=== PATIENT | male | born 1995 | race Caucasian/White ===

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

== ENCOUNTER 2020-03-29 15:00 | Inpatient (IN) | payer SELFPAY ==
[2020-03-29] MEDS ORDERED: ACETAMINOPHEN 325 MG TABLET PO ONE (15:23)
[2020-03-29] MEDS ORDERED: ONDANSETRON HCL INJ/PF 4 MG/2 ML SDV IV ONE ×2 (15:40→19:40)
[2020-03-29] MEDS ORDERED: NORMAL SALINE 1000 ML 1,000 ML IV ONE ×2 (15:40→16:47)
--- NOTE | 2020-03-29 15:43 | ER Document Report ---
ED GI/ - General TRAVEL OUTSIDE OF THE [place] IN LAST 30 DAYS: No <XIAO LANE - Last Filed: 03/29/20 19:41> <GERARDO KEE - Last Filed: 03/29/20 21:22> - General Chief Complaint: Fever Stated Complaint: COUGH,CONGESTION,DIARRHE Time Seen by Provider: 03/29/20 15:23 Notes: CHIEF COMPLAINT: Abdominal pain vomiting diarrhea fever cough congestion HPI: 25-year-old male presenting with multiple complaints over the last 2 weeks. Has had a nonproductive cough. Nasal congestion. Has had multiple episodes of vomiting and diarrhea with generalized lower abdominal discomfort over the last 2 weeks. Patient reports having seen some blood in his stool a week ago. Patient complains of generalized myalgia and body ache. ROS: See HPI - all other systems were reviewed and are otherwise negative Constitutional: no fever Eyes: no drainage, no blurred vision ENT: + runny nose, no sore throat Cardiovascular: no chest pain Resp: no SOB, + cough GI: + vomiting, + diarrhea, + abdominal pain : no dysuria Integumentary: no rash Allergy: no hives Musculoskeletal: Positive myalgia Neurological: no numbness/tingling, no weakness MEDICATIONS: I agree with the patient medications as charted by the RN. ALLERGIES: I agree with the allergies as charted by the RN. PAST MEDICAL HISTORY/PAST SURGICAL HISTORY: Reviewed and agree as charted by RN. SOCIAL HISTORY: Reviewed and agree as charted by RN. FAMILY HISTORY: No significant familial comorbid conditions directly related to patient complaint EXAM: Reviewed vital signs as charted by RN. CONSTITUTIONAL: Alert and oriented and responds appropriately to questions. Well-appearing; well-nourished HEAD: Normocephalic; atraumatic EYES: PERRL; Conjunctivae clear, sclerae non-icteric ENT: normal nose; positive clear rhinorrhea; moist mucous membranes; pharynx without lesions noted, no uvula edema or deviation, no tonsillar hypertrophy, phonation normal NECK: Supple without meningismus; non-tender; no cervical lymphadenopathy, no masses CARD: Mild tachycardia; no murmurs, no clicks, no rubs, no gallops; symmetric distal pulses RESP: Normal chest excursion without splinting or tachypnea; breath sounds clear and equal bilaterally; no wheezes, no rhonchi, no rales, pulse oximetry 97% on room air not hypoxic ABD/GI: Normal bowel sounds; non-distended; soft, mild tenderness in the right lower quadrant on palpation, no rebound, no guarding; no palpable organomegaly or masses. BACK: The back appears normal and is non-tender to palpation, there is no CVA tenderness EXT: Normal ROM in all joints; non-tender to palpation; no cyanosis, no effusions, no edema SKIN: Normal color for age and race; warm; dry; good turgor; no acute lesions noted NEURO: Moves all extremities equally; Motor and sensory function intact PSYCH: The patient's mood and manner are appropriate. Grooming and personal hygiene are appropriate. MDM: 25-year-old male with multiple complaints. Will obtain Covid testing. Will obtain chest x-ray for infiltrate. Will obtain baseline screening labs, abdominal CT given his complaint of lower abdominal pain over the last 2 weeks with possible blood in the stool last week. He has mild tenderness in the right lower quadrant differential would include appendicitis, colitis, Covid, flu (XIAO LANE) - Related Data Allergies/Adverse Reactions: No Known Allergies Allergy (Verified 03/29/20 15:33) Past Medical History - Social History Smoking Status: Current Every Day Smoker Family History: Reviewed & Not Pertinent Patient has homicidal ideation: No Renal/ Medical History: Denies: Hx Peritoneal Dialysis Psychiatric Medical History: Reports: Hx Borderline Personality Disorder - Immunizations Immunizations up to date: Yes Hx Diphtheria, Pertussis, Tetanus Vaccination: Yes - 2008 <[address] - Last Filed: 03/29/20 19:41> Physical Exam - Vital signs Vitals: Temp Pulse Resp BP Pulse Ox 101.5 F H 112 H 19 142/72 H 99 03/29/20 15:12 03/29/20 15:12 03/29/20 15:12 03/29/20 15:12 03/29/20 15:12 Course - Laboratory Result Diagrams: 03/29/20 17:17 03/29/20 15:57 <[address] - Last Filed: 03/29/20 19:41> - Laboratory Result Diagrams: 03/29/20 17:17 03/29/20 15:57 - Diagnostic Test Radiology reviewed: Reports reviewed - Consults Hospitalist consult Time consulted: 21:18 Consulted provider: will come to ER <GERARDO EKE - Last Filed: 03/29/20 21:22> - Re-evaluation Re-evalutation: 03/29/20 16:52 Patient was noted to be markedly hyponatremic. Patient's T bili also significantly elevated. Have added drug screen and alcohol level. Have ordered additional IV fluids. Patient awaiting CT imaging. 03/29/20 19:[address] Mathew attending. Report will be given to oncoming shift following disposition. Patient CT imaging shows diffuse bowel wall thickening with reactive lymphadenopathy. Question of ulcerative colitis or Crohn's disease. Patient indicates that he has no family history of and no personal history of those. Patient drinks approximately 9-12 beers daily. Patient will have gallbladder ultrasound given the thickened gallbladder wall to evaluate for acute cholecystitis. 03/29/20 19:41 Patient states he has not had any bleeding from his rectum in 2 days, he declines a rectal exam at this time. (XIAO LANE) 03/29/20 20:05 Report received from off going provider, Xiao. I have evaluated the patient at bedside. He is currently resting comfortably and in no acute distress. He has had a dose of Zosyn. He does have a CT result that shows colitis. He is a chronic alcoholic and likely has alcoholic gastritis as well. I will consult the hospitalist for admission. (GERARDO EKE) - Vital Signs Vital signs: Temp Pulse Resp BP Pulse Ox 99.7 F 100 20 128/71 H 100 03/29/20 18:35 03/29/20 18:35 03/29/20 18:35 03/29/20 18:35 03/29/20 18:35 - Laboratory Laboratory results interpreted by me: 03/29/20 03/29/20 15:57 17:17 WBC 15.7 H RBC 2.58 L Hgb 9.7 L Hct 27.4 L MCV 106 H MCH 37.6 H Plt Count 95 L Seg Neuts % (Manual) 84 H Band Neutrophils % 1 L Lymphocytes % (Manual) 9 L Abs Neuts (Manual) 13.3 H Sodium 126.6 L Potassium 3.2 L Chloride 90 L BUN 5 L Total Bilirubin 7.7 H Direct Bilirubin 2.2 H AST 189 H ALT 74 H Alkaline Phosphatase 201 H Albumin 3.2 L Lipase 522.3 H - Consults Hospitalist consult Reason for consultation: 03/29/20 21:18 This case was discussed with Dr. Simmons who agrees to evaluate patient in the emergency room for admission. (GERARDO KEE) Discharge <XIAO LANE - Last Filed: 03/29/20 19:41> - Discharge Admitting Provider: [facility] Unit Admitted: Medical Floor <GERARDO KEE - Last Filed: 03/29/20 21:22> - Discharge Clinical Impression: Acute colitis Alcoholic gastritis Qualifiers: Chronicity: acute Gastritis bleeding: presence of bleeding unspecified Qualified Code(s): K29.20 - Alcoholic gastritis without bleeding Condition: Stable Disposition: ADMITTED INPATIENT
[2020-03-29 16:33] LABS: ALBUMIN 3.2 g/dL (3.5-5.0); ALKALINE PHOSPHATASE 201 U/L (38-126); ANION GAP 13 (5-19); ASPARTATE AMINO TRANSFERASE 189 U/L (17-59); BILIRUBIN,DIRECT 2.2 mg/dL (0.0-0.4); BILIRUBIN,TOTAL 7.7 mg/dL (0.2-1.3); BLOOD UREA NITROGEN 5 mg/dL (7-20); CALCIUM 9.7 mg/dL (8.4-10.2); CARBON DIOXIDE 24 mmol/L (22-30); CHLORIDE 90 mmol/L (98-107); GLUCOSE 101 mg/dL (75-110); POTASSIUM 3.2 mmol/L (3.6-5.0); TOTAL PROTEIN 7.7 g/dL (6.3-8.2)
[2020-03-29 16:46] LABS: A TYPE INFLUENZA AG NEGATIVE (NEGATIVE); B INFLUENZA AG NEGATIVE (NEGATIVE)
[2020-03-29] MEDS ORDERED: POTASSIUM CHLORIDE 10 MEQ TABLET.ER PO ONE (16:47)
[2020-03-29 17:35] LABS: HEMATOCRIT 27.4 % (37.9-51.0); HEMOGLOBIN 9.7 g/dL (13.5-17.0); MEAN CORPUSCULAR HEMOGLOBIN 37.6 pg (27.0-33.4); MEAN CORPUSCULAR HGB CONC 35.4 g/dL (32.0-36.0); MEAN CORPUSCULAR VOLUME 106 fl (80-97); RED BLOOD COUNT 2.58 10^6/uL (4.35-5.55); RED CELL DISTRIBUTION WIDTH 13.9 % (11.5-14.0); WHITE BLOOD COUNT 15.7 10^3/uL (4.0-10.5)
[2020-03-29 17:40] LABS: PLATELET COUNT 95 10^3/uL (150-450)
[2020-03-29 17:51] LABS: ABSOLUTE LYMPHOCYTES# (MANUAL) 1.7 10^3/uL (0.5-4.7); ABSOLUTE MONOCYTES # (MANUAL) 0.5 10^3/uL (0.1-1.4); BAND NEUTROPHILS % (MANUAL) 1 % (3-5); BASOPHILS % (MANUAL) 0 % (0-2); EOSINOPHILS % (MANUAL) 1 % (0-6); LYMPHOCYTES % (MANUAL) 9 % (13-45); MONOCYTES % (MANUAL) 3 % (3-13); SEGMENTED NEUTROPHILS % (MAN) 84 % (42-78); SMUDGE CELLS PRESENT; TOTAL CELLS COUNTED 100
[2020-03-29 17:53] LABS: PLATELET COMMENT DECREASED
[2020-03-29 17:54] LABS: ANISOCYTOSIS SLIGHT; POLYCHROMASIA 1+
[2020-03-29 17:55] LABS: POIKILOCYTOSIS 2+
[2020-03-29 18:18] LABS: APPEARANCE,URINE CLEAR; BILIRUBIN,URINE NEGATIVE (NEGATIVE); COLOR,URINE AMBER; GLUCOSE, URINE NEGATIVE (NEGATIVE); KETONES,URINE NEGATIVE (NEGATIVE); LEUKOCYTE ESTERASE,URINE NEGATIVE (NEGATIVE); NITRITE,URINE NEGATIVE (NEGATIVE); PROTEIN,URINE NEGATIVE (NEGATIVE); URINE SPECIFIC GRAVITY 1.008; UROBILINOGEN,URINE NEGATIVE mg/dL (<2.0)
[2020-03-29 18:35] LABS: URINE AMPHETAMINES SCREEN NEGATIVE; URINE BARBITURATES SCREEN NEGATIVE; URINE BENZODIAZEPINES SCREEN NEGATIVE; URINE COCAINE SCREEN NEGATIVE; URINE MARIJUANA (THC) SCREEN NEGATIVE; URINE METHADONE SCREEN NEGATIVE; URINE PHENCYCLIDINE SCREEN NEGATIVE
--- NOTE | 2020-03-29 19:24 | RADIOLOGY REPORT (SQ) ---
EXAM DESCRIPTION: CT ABD/PELVIS WITH IV ORAL IMAGES COMPLETED DATE/TIME: 03/29/2020 7:01 pm REASON FOR STUDY: rlq abd pain COMPARISON: 06/26/2016 TECHNIQUE: CT scan of the abdomen and pelvis performed using helical scanning technique with dynamic intravenous contrast injection. No oral contrast. Images reviewed with lung, soft tissue, and bone windows. Reconstructed coronal and sagittal MPR images reviewed. Delayed images for evaluation of the urinary system also acquired. All images stored on PACS. All CT scanners at this facility use dose modulation, iterative reconstruction, and/or weight based d osing when appropriate to reduce radiation dose to as low as reasonably achievable (ALARA). [facility]: Dose Right [facility]: CareDose [facility]: Dose Right [facility]: Teradose 4D [facility]: Libretto CONTRAST TYPE AND DOSE: contrast/concentration: Isovue 350.00 mmol/ml; Total Contrast Delivered: 95. 9 ml; Total Saline Delivered: 70.0 ml RENAL FUNCTION: None required. The patient is less than 50 years old. RADIATION DOSE: CT Rad equipment meets quality standard of care and radiation dose reduction techniq ues were employed. CTDIvol: 5.4 - 7.1 mGy. DLP: 651 mGy-cm.. LIMITATIONS: Respiratory motion. Streak artifact from the patient's arms which could not be placed above the head. FINDINGS: LOWER CHEST: Focal rounded opacity in the periphery of the left lower lobe at the level of the diaphragm. Most likely focal airspace disease. LIVER: Decreased attenuation consistent with steatosis. Hepatomegaly. The liver measures over 20 cm in cranial caudal dimensions. This is new from prior study. There is a small amount of perihepatic fluid. SPLEEN: Splenomegaly. No focal masses. Spleen measures just over 15 cm in cranial caudal dimensions . PANCREAS: No masses. No significant calcifications. No adjacent inflammation or peripancreatic fluid collections. Pancreatic duct not dilated. GALLBLADDER: Pericholecystic edema. Acute cholecystitis cannot be excluded. ADRENAL GLANDS: No significant masses or asymmetry. RIGHT KIDNEY AND URETER: No solid masses. No significant calcifications. No hydronephrosis or hyd roureter. LEFT KIDNEY AND URETER: No solid masses. No significant calcifications. No hydronephrosis or hydr oureter. AORTA AND VESSELS: No aneurysm. No dissection. Renal arteries, SMA, celiac without stenosis. RETROPERITONEUM: No retroperitoneal adenopathy, hemorrhage or masses. BOWEL AND PERITONEAL CAVITY: Extensive thickening of the colonic wall no free air or focal abscess. No evidence of obstruction. Prominent peritoneal lymph nodes which could be rib reactive or neoplast ic. APPENDIX: Normal. PELVIS: Small amount of free fluid in the right lower quadrant and in the pelvis. ABDOMINAL WALL: No masses. No hernias. BONES: No significant or acute findings. OTHER: No other significant finding. IMPRESSION: 1. Diffuse thickening of the colonic wall with no definitive involvement of the terminal ileum. This may represent Crohn's or ulcerative colitis. There is diffuse mesenteric adenopathy mo st likely reactive. 2. Pericholecystic edema. There is perihepatic fluid. Correlation with ultrasound is recommended. 3. Hepatosplenomegaly. Hepatic steatosis. 4. Small amount of free fluid in the right lower quadrant and pelvis. TECHNICAL DOCUMENTATION: JOB ID: [id number] Quality ID # [id number]: Final reports with documentation of one or more dose reduction techniques (e.g., Au tomated exposure control, adjustment of the mA and/or kV according to patient size, use of iterative reconstruction technique) 2010 [employer]- All Rights Reserved Reading location - IP/workstation name: [email or web address]
[2020-03-29] MEDS ORDERED: PIPERACILLIN/TAZOBACTAM 3.375 GM VIAL IV ONE (19:37)
[2020-03-29] MEDS ORDERED: FENTANYL CITRATE INJ/PF 100 MCG/2 ML AMPUL IV ONE (19:40)
--- NOTE | 2020-03-29 20:34 | RADIOLOGY REPORT (SQ) ---
EXAM DESCRIPTION: US ABDOMEN LIMITED COMPLETED DATE/TME: 03/29/2020 20:18 CLINICAL HISTORY: 25 years, Male, GB wall thickening COMPARISON: CT abdomen/pelvis performed the same day TECHNIQUE: Axial 2-D grayscale images of the abdomen were acquired. Doppler was utilized. LIMITATIONS: None. FINDINGS: Visualized portions of the pancreas are normal in echogenicity. Visualized portions of the abdominal aorta and IVC appear normal. The liver is diffusely echogenic and somewhat coarsened in echotexture. No focal liver lesions are appreciated. Liver length is 19.6 cm. Bidirectional flow is suspected within the portal vein. However, color Doppler was poorly visualized. Portal vein diameter is 2 cm. Right kidney measures 10.5 cm in length. There is mild dilatation of the renal pelvis. Gallbladder wall thickness measures 4 mm. No gallstones. However, there is suspected echogenic material layering dependently within the gallbladder lumen. Common bile duct diameter measures 4 mm. Sonographic Banuelos sign was negative. Trace perihepatic ascites is evident. IMPRESSION: Echogenic liver which is coarsened in echotexture, suggestive of diffuse hepatocellular disease such as hepatic steatosis. Superimposed bidirectional flow within the portal vein with poorly assessed color Doppler. However, the portal vein appeared patent on the recent CT. As such, the bidirectional flow within the portal vein is potentially related to portal hypertension. Isolated gallbladder wall thickening, nonspecific. This could be related to underlying chronic liver disease. Suspect gallbladder sludge. Mild right hydronephrosis. Small amount of perihepatic ascites. copyright 2010 [employer] All Rights Reserved
[2020-03-29] MEDS ORDERED: SUCRALFATE 1 GM TABLET PO ONE (21:08)
[2020-03-29] MEDS ORDERED: FAMOTIDINE INJ/PF 20 MG/2 ML SDV IV ONE (21:08)
[2020-03-29] MEDS ORDERED: ACETAMINOPHEN 325 MG TABLET PO PRN (21:53)
[2020-03-29] MEDS ORDERED: ONDANSETRON HCL INJ/PF 4 MG/2 ML SDV IV PRN (21:53)
[2020-03-29] MEDS ORDERED: LORAZEPAM INJ 2 MG/1 ML VIAL IV PRN (22:11)
[2020-03-29 22:43] LABS: C DIFFICILE GDH NEGATIVE (NEGATIVE)
[2020-03-29] MEDS: PANTOPRAZOLE SODIUM 40 MG VIAL IV SCH (22:52)
[2020-03-29] MEDS: RINGERS SOLUTION,LACTATED 1,000 ML IV PRN (22:56)
--- NOTE | 2020-03-29 23:03 | PDOC H&P ---
History of Present Illness Admission Date/PCP: 03/29/20 21:35 Patient complains of: Nausea, vomiting, bloody diarrhea History of Present Illness: VASU FELICIANO is a 25 year old male with no significant past medical history who presents with 2 to 3 weeks duration of nausea, vomiting and diarrhea. Patient reports that he has decreased appetite and whenever he tries to have a meal he throws up mostly ingested matter. Diarrhea is mostly watery but he also states that occasionally becomes mixed with bright red blood throughout his bowel movement. He also states that he has been having cough productive of blood-streaked sputum. Associated with this he also endorses a burning epigastric pain especially after having a meal or drinking water. Patient also states that he has cramping lower abdominal pain, fever, chills, pruritus and pleuritic chest pain. In the past 2 days he has been feeling dizzy when he gets up. His sister had bad cough and fever recently but he states that she tested negative for Covid 19. He drinks 8 cans of beer daily and states that in the past he has had tremors and excessive anxiety and agitation when trying to quit alcohol. He denies taking any [id number] or herbal medications. He also denied any recent travel. Social History Information Source: Patient Lives with: Family Smoking Status: Current Every Day Smoker Frequency of Alcohol Use: Heavy Hx Recreational Drug Use: No Drugs: None - Advance Directive Resuscitation Status: Full Code Family History Family History: Reviewed & Not Pertinent Parental Family History Reviewed: Yes Children Family History Reviewed: Yes Sibling(s) Family History Reviewed.: Yes Medication/Allergy Home Medications: No Home Medications 04/16/16 Allergies/Adverse Reactions: No Known Allergies Allergy (Verified 03/29/20 15:33) Review of Systems Constitutional: PRESENT: anorexia, chills, fatigue, fever(s) Eyes: ABSENT: visual disturbances Ears: ABSENT: hearing changes Nose, Mouth, and Throat: ABSENT: headache(s), mouth pain, sore throat Cardiovascular: ABSENT: chest pain, dyspnea on exertion, edema, orthropnea, palpitations Respiratory: PRESENT: as per HPI Gastrointestinal: PRESENT: as per HPI Genitourinary: ABSENT: dysuria, hematuria Musculoskeletal: ABSENT: joint swelling Integumentary: ABSENT: rash, wounds Neurological: ABSENT: abnormal gait, abnormal speech, confusion, dizziness, focal weakness, syncope Psychiatric: ABSENT: anxiety, depression, homidical ideation, suicidal ideation Endocrine: ABSENT: cold intolerance, heat intolerance, polydipsia, polyuria Hematologic/Lymphatic: ABSENT: easy bleeding, easy bruising Physical Exam Vital Signs: Temp Pulse Resp BP Pulse Ox 99.6 F 98 20 134/57 H 97 03/29/20 21:57 03/29/20 21:57 03/29/20 21:57 03/29/20 21:57 03/29/20 21:57 Intake & Output 03/28/20 03/29/20 03/30/20 06:59 06:59 06:59 Intake Total 1999 Balance 1999 Weight 76.9 kg Additional comments: GENERAL APPEARANCE: Alert and oriented x3, in no acute distress HEENT: Normocephalic and atraumatic. Has scleral icterus. Dry oral mucosa NECK: Supple. No lymphadenopathy or tenderness. No JVD CHEST: Symmetric. Nontender to palpation. LUNGS: Clear with good air entry bilaterally. No wheezing or crackles HEART: Regular rate and rhythm with normal S1 and S2. No murmurs, gallops, or rubs. ABDOMEN: Mildly distended, soft, active bowel sounds, has mild epigastric and suprapubic tenderness but no guarding rigidity or rebound tenderness. No organomegaly detected. No CVA tenderness EXTREMITIES: No cyanosis, clubbing, or edema. MUSCULOSKELETAL: No deformity, atrophy or swelling noted PSYCHIATRIC: Recent and remote memory is intact. Appropriate mood and affect. SKIN: Warm, dry, and well perfused. No lesions or rashes are noted. NEUROLOGIC: No focal sensory or motor deficits are noted. Results Laboratory Results: 03/29/20 17:17 03/29/20 15:57 03/29/20 03/29/20 03/29/20 15:57 15:57 17:17 WBC Cancelled 15.7 H RBC Cancelled 2.58 L Hgb Cancelled 9.7 L Hct Cancelled 27.4 L MCV Cancelled 106 H MCH Cancelled 37.6 H MCHC Cancelled 35.4 RDW Cancelled 13.9 Plt Count Cancelled 95 L Seg Neutrophils % Cancelled Not Reportable Sodium 126.6 L Potassium 3.2 L Chloride 90 L Carbon Dioxide 24 Anion Gap 13 BUN 5 L Creatinine 0.72 Est GFR ( Amer) > 60 Glucose 101 Calcium 9.7 Total Bilirubin 7.7 H AST 189 H Alkaline Phosphatase 201 H Total Protein 7.7 Albumin 3.2 L Lipase 522.3 H Urine Color Urine Appearance Urine pH Ur Specific [place] Urine Protein Urine Glucose (UA) Urine Ketones Urine Blood Urine Nitrite Ur Leukocyte Esterase Urine WBC (Auto) Urine RBC (Auto) Stool for White Cells 03/29/20 03/29/20 17:33 21:16 WBC RBC Hgb Hct MCV MCH MCHC RDW Plt Count Seg Neutrophils % Sodium Potassium Chloride Carbon Dioxide Anion Gap BUN Creatinine Est GFR ( Amer) Glucose Calcium Total Bilirubin AST Alkaline Phosphatase Total Protein Albumin Lipase Urine Color [place]IN Urine Appearance CLEAR Urine pH 7.0 Ur Specific [place] 1.008 Urine Protein NEGATIVE Urine Glucose (UA) NEGATIVE Urine Ketones NEGATIVE Urine Blood NEGATIVE Urine Nitrite NEGATIVE Ur Leukocyte Esterase NEGATIVE Urine WBC (Auto) 0 Urine RBC (Auto) 0 Stool for White Cells NO WBCs SEEN Impressions: Abdomen/Pelvis CT 03/29/20 18:30 IMPRESSION: 1. Diffuse thickening of the colonic wall with no definitive involvement of the terminal ileum. This may represent Crohn's or ulcerative colitis. There is diffuse mesenteric adenopathy most likely reactive. 2. Pericholecystic edema. There is perihepatic fluid. Correlation with ultrasound is recommended. 3. Hepatosplenomegaly. Hepatic steatosis. 4. Small amount of free fluid in the right lower quadrant and pelvis. Abdomen Ultrasound 03/29/20 19:36 IMPRESSION: Echogenic liver which is coarsened in echotexture, suggestive of diffuse hepatocellular disease such as hepatic steatosis. Superimposed bidirectional flow within the portal vein with poorly assessed color Doppler. However, the portal vein appeared patent on the recent CT. As such, the bidirectional flow within the portal vein is potentially related to portal hypertension. Isolated gallbladder wall thickening, nonspecific. This could be related to underlying chronic liver disease. Suspect gallbladder sludge. Mild right hydronephrosis. Small amount of perihepatic ascites. copyright 2010 [employer]- All Rights Reserved Assessment and Plan - Diagnosis (1) Acute colitis Is this a current diagnosis for this admission?: Yes Plan: Patient presents with 2 weeks duration of blood-streaked diarrhea CT abdomen showed diffuse thickening of colonic wall no involvement of the terminal ileum and it diffuse mesenteric lymphadenopathy, likely reactive Inflammatory bowel disease is a possible cause vs infectious etiology C. difficile was negative Continue Zosyn 3.375 gm IV every 6 hourly Zofran for nausea and vomiting Continue supportive care (2) Alcoholic gastritis Qualifiers: Chronicity: acute Gastritis bleeding: presence of bleeding unspecified Qualified Code(s): K29.20 - Alcoholic gastritis without bleeding Is this a current diagnosis for this admission?: Yes Plan: Patient reports epigastric pain with nausea and vomiting Mildly elevated lipase likely to be due to gastritis CT abdomen showed no sign of pancreatic inflammation or peripancreatic fluid collection Will keep him n.p.o. for now, and advance when he tolerates Pantoprazole 40 mg IV twice daily Continue IV hydration (3) Alcoholic hepatitis with ascites Is this a current diagnosis for this admission?: Yes Plan: A chronic alcoholic, now presents with nausea, vomiting, jaundice. Has no encephalopathy Elevated liver enzymes with AST/ALT ratio 2:1 consistent with alcoholic hepatitis And also has elevated bilirubin, leukocytosis INR is elevated at 3.04, has hypoalbuminemia Requested hepatitis panel, GGT Has signs of portal hypertension on imaging Nausea [place] alcoholic hepatitis score of 9, maddery's score of 95 indicating patient would likely benefit from steroid Started on prednisone 40 mg daily Continue IV hydration and monitor CMP (4) Hyponatremia Is this a current diagnosis for this admission?: Yes Plan: Likely due to volume depletion from GI loss Serum sodium was 126 Ordered serum osmolality, urine osmolality and urine sodium Continue IV hydration with a goal of correction being 4 to 6 mEq in the first 24 hours (5) Hypokalemia Is this a current diagnosis for this admission?: Yes Plan: Serum potassium 3.2 on presentation Potassium chloride was given Monitor electrolytes and replete as needed (6) Elevated bilirubin Is this a current diagnosis for this admission?: Yes Plan: Likely due to alcoholic hepatitis Liver enzymes consistent with alcoholic hepatitis CT abdomen showed hepatomegaly, ultrasound also showed diffuse hepatocellular disease(steatosis) with mild right perihepatic ascites and signs of portal hypertension Follow-up with hepatitis panel, GGT Continue monitoring CMP and treat underlying cause (7) Leukocytosis Is this a current diagnosis for this admission?: Yes Plan: Likely due to inflammatory colitis and alcoholic hepatitis Follow-up with blood culture Continue treating the underlying causes (8) Anemia Is this a current diagnosis for this admission?: Yes Plan: H&H on presentation was 9.7/27.4 with an MCV of 106 Likely due to GI blood loss and chronic alcoholism Will obtain folic acid and vitamin B12 levels Continue monitoring CBC and will transfuse if hemoglobin falls below 7.0 (9) Thrombocytopenia Is this a current diagnosis for this admission?: Yes Plan: Likely due to splenic sequestration from portal hypertension Will continue to monitor (10) Alcohol abuse Is this a current diagnosis for this admission?: Yes Plan: Patient's alcohol level was 79 on presentation He reports withdrawal symptoms in the past when trying to quit, but no history of seizure or DTs Started him on symptom triggered CIWA with as needed lorazepam (11) Tobacco dependence Is this a current diagnosis for this admission?: Yes Plan: Encouraged and counseled him on tobacco cessation Nicotine patch while inpatient - Time Time Spent with patient: 35 or more minutes Total Critical Time (Minutes): 45 Smoking Cessation Education: 3 to 10 minutes Medications reviewed and adjusted accordingly: Yes Anticipated Discharge Disposition: Home, Self Care Anticipated Discharge Timeframe: within 72 hours - Inpatient Certification Based on my medical assessment, after consideration of the patient's comorbidities, presenting symptoms, or acuity I expect that the services needed warrant INPATIENT care.: Yes I certify that my determination is in accordance with my understanding of Medicare's requirements for reasonable and necessary INPATIENT services [42 CFR 412.3e].: Yes Medical Necessity: Need Close Monitoring Due to Risk of Patient Decompensation, Need For IV Fluids, Need for IV Antibiotics, Risk of Complication if Not Cared For in Hospital Post Hospital Care: D/C or Transfer Summary
[2020-03-29 23:21] LABS: URINE SODIUM < 5 mmol/L (30-90)
--- NOTE | 2020-03-29 23:23 | RADIOLOGY REPORT (SQ) ---
EXAM DESCRIPTION: XR CHEST 2 VIEWS COMPLETED DATE/TME: 03/29/2020 22:44 CLINICAL HISTORY: 25 years, Male, cough, chest pain, fever COMPARISON: Prior study from 06/10/2015 NUMBER OF VIEWS: 2 TECHNIQUE: Frontal and lateral radiographs were obtained LIMITATIONS: None. FINDINGS: Cardiac and mediastinal contours are normal in appearance. Lungs are clear. No pleural effusion or pneumothorax. IMPRESSION: No acute disease. copyright 2010 [employer]- All Rights Reserved
[2020-03-29 23:24] LABS: INTERNATIONAL RATION (INR) 3.04; PROTHROMBIN TIME 31.3 SEC (11.4-15.4)
[2020-03-29 23:25] LABS: PARTIAL THROMBOPLASTIN TIME 65.4 SEC (23.5-35.8)
[2020-03-29 23:37] LABS: OSMOLALITY,URINE 185 mOsm/kg (300-900)
[2020-03-30] MEDS ORDERED: PIPERACILLIN/TAZOBACTAM 3.375 GM VIAL IV ONE (00:10)
[2020-03-30] MEDS: PIPERACILLIN SODIUM/TAZOBACTAM 3.375 GM in NORMAL SALINE 100 ML IV SCH ×5 (00:17→23:42)
[2020-03-30 05:43] LABS: HEMATOCRIT 26.7 % (37.9-51.0); HEMOGLOBIN 9.4 g/dL (13.5-17.0); MEAN CORPUSCULAR HEMOGLOBIN 37.5 pg (27.0-33.4); MEAN CORPUSCULAR HGB CONC 35.2 g/dL (32.0-36.0); MEAN CORPUSCULAR VOLUME 107 fl (80-97); RED CELL DISTRIBUTION WIDTH 14.2 % (11.5-14.0)
[2020-03-30 06:02] LABS: ALBUMIN 2.5 g/dL (3.5-5.0); ALKALINE PHOSPHATASE 143 U/L (38-126); ANION GAP 11 (5-19); ASPARTATE AMINO TRANSFERASE 194 U/L (17-59); BILIRUBIN,DIRECT 2.4 mg/dL (0.0-0.4); BILIRUBIN,TOTAL 7.5 mg/dL (0.2-1.3); BLOOD UREA NITROGEN 6 mg/dL (7-20); CALCIUM 8.6 mg/dL (8.4-10.2); CARBON DIOXIDE 19 mmol/L (22-30); CHLORIDE 98 mmol/L (98-107); GLUCOSE 86 mg/dL (75-110); POTASSIUM 3.7 mmol/L (3.6-5.0); TOTAL PROTEIN 6.3 g/dL (6.3-8.2)
[2020-03-30 06:12] LABS: PLATELET COUNT 75 10^3/uL (150-450)
[2020-03-30 06:15] LABS: ABSOLUTE LYMPHOCYTES# (MANUAL) 1.5 10^3/uL (0.5-4.7); ABSOLUTE MONOCYTES # (MANUAL) 1.5 10^3/uL (0.1-1.4); BASOPHILS % (MANUAL) 0 % (0-2); EOSINOPHILS % (MANUAL) 0 % (0-6); LYMPHOCYTES % (MANUAL) 11 % (13-45); MONOCYTES % (MANUAL) 11 % (3-13); NUCLEATED RED BLOOD CELLS 1 /100 WBC (0); SEGMENTED NEUTROPHILS % (MAN) 78 % (42-78); TOTAL CELLS COUNTED 100
[2020-03-30 06:20] LABS: ANISOCYTOSIS SLIGHT; PLATELET COMMENT DECREASED; POIKILOCYTOSIS SLIGHT; POLYCHROMASIA 1+; SCHISTOCYTES SLIGHT; TARGET CELLS SLIGHT; TEAR DROP CELLS SLIGHT; TOXIC VACUOLATION PRESENT
[2020-03-30] MEDS: RINGERS SOLUTION,LACTATED 1,000 ML IV PRN ×2 (07:38→17:27)
[2020-03-30] MEDS: PANTOPRAZOLE SODIUM 40 MG VIAL IV SCH ×2 (09:02→21:07)
[2020-03-30] MEDS: MULTIVITAMIN TABLET PO SCH (09:02)
[2020-03-30] MEDS: FOLIC ACID 1 MG TABLET PO SCH (09:02)
[2020-03-30] MEDS: THIAMINE HCL 100 MG TABLET PO SCH (09:02)
[2020-03-30] MEDS: METHYLPREDNISOLONE INJ 40 MG/1 ML SDV IV SCH ×3 (09:02→21:08)
[2020-03-30] MEDS: NICOTINE 14 MG/24 HR PATCH.TD24 TD SCH (09:03)
--- NOTE | 2020-03-30 09:24 | PDOC CONSULTATION ---
Consultation Consult Date: 03/30/20 Provider Consulted: ADE [id number] Consult reason:: abnormal CT scan. diarrhea , change in bowel habits History of Present Illness Admission Date/PCP: 03/29/20 21:35 History of Present Illness: VASU FELICIANO is a 25 year old male asked to see this patient who presented overnight with abnormal CT scan showing thickening of the colon this is accompanied by blood streaked diarrhea patient is anemic and Covid testing is pending drinks regularly, has possible hepatitis , also has upper GI symptoms, has nausea and vomiting as well ? possible infectious although still could have inflammatory bowel disease if Covid testing is negative, can proceed with colonoscopy and EGD if patient wants to proceed has abnormal LFT along with an elevated lipase, likely has a component of ETOH hepatitis along with possible pancreatitis as well Past Medical History Psychiatric Medical History: Denies: Depression Social History Lives with: Family Smoking Status: Current Every Day Smoker Cigarettes Packs Per Day: 0.5 Electronic Cigarette use?: No Number of Years Smokin Last Time Smoked: 03/29/20 Frequency of Alcohol Use: Heavy Hx Recreational Drug Use: No Drugs: None Hx Prescription Drug Abuse: No - Advance Directive Resuscitation Status: Full Code Family History Family History: Reviewed & Not Pertinent Parental Family History Reviewed: Yes Children Family History Reviewed: Unknown Sibling(s) Family History Reviewed.: Unknown Medication/Allergy Home Medications: No Home Medications 04/16/16 Allergies/Adverse Reactions: No Known Allergies Allergy (Verified 03/29/20 15:33) Review of Systems Constitutional: ABSENT: fever(s), headache(s), night sweats, weakness Eyes: ABSENT: visual disturbances Ears: ABSENT: hearing changes Nose, Mouth, and Throat: ABSENT: mouth pain, sore throat Cardiovascular: ABSENT: orthropnea, palpitations Respiratory: ABSENT: dyspnea, hemoptysis Gastrointestinal: PRESENT: diarrhea, nausea, vomiting Genitourinary: ABSENT: dysuria, hematuria Musculoskeletal: ABSENT: joint swelling Neurological: ABSENT: syncope, tingling, tremor(s), vertigo Endocrine: ABSENT: polydipsia, polyphagia, polyuria Hematologic/Lymphatic: ABSENT: easy bruising Physical Exam Vital Signs: Temp Pulse Resp BP Pulse Ox 98.4 F 102 H 20 136/59 H 100 03/30/20 08:23 03/30/20 08:23 03/30/20 08:23 03/30/20 08:23 03/30/20 08:23 Intake & Output 03/29/20 03/30/20 03/31/20 06:59 06:59 06:59 Intake Total 3000 Output Total 0 Balance 3000 Weight 73.8 kg General appearance: PRESENT: mild distress Head exam: PRESENT: atraumatic, normocephalic Eye exam: PRESENT: EOMI, PERRLA. ABSENT: nystagmus, scleral icterus Mouth exam: PRESENT: moist, neck supple Throat exam: ABSENT: tonsillar exudate, tonsillogmegaly Neck exam: ABSENT: meningismus, tenderness, thyromegaly Respiratory exam: PRESENT: symmetrical, unlabored. ABSENT: tachypnea, wheezes Cardiovascular exam: PRESENT: RRR, +S1, +S2 GI/Abdominal exam: PRESENT: soft. ABSENT: rebound, rigid, tenderness Extremities exam: ABSENT: joint swelling Neurological exam: PRESENT: oriented to time, oriented to situation, CN II-XII grossly intact Focused psych exam: ABSENT: restlessness Skin exam: PRESENT: normal color. ABSENT: mottled, pallor, urticaria Results Laboratory Results: 03/30/20 05:16 03/30/20 05:16 03/29/20 03/29/20 03/29/20 15:57 15:57 15:57 WBC Cancelled RBC Cancelled Hgb Cancelled Hct Cancelled MCV Cancelled MCH Cancelled MCHC Cancelled RDW Cancelled Plt Count Cancelled Seg Neutrophils % Cancelled Sodium 126.6 L Potassium 3.2 L Chloride 90 L Carbon Dioxide 24 Anion Gap 13 BUN 5 L Creatinine 0.72 Est GFR ( Amer) > 60 Glucose 101 Serum Osmolality 290 Calcium 9.7 Magnesium Total Bilirubin 7.7 H GGT AST 189 H Alkaline Phosphatase 201 H C-Reactive Protein Total Protein 7.7 Albumin 3.2 L Lipase 522.3 H Urine Color Urine Appearance Urine pH Ur Specific [place] Urine Protein Urine Glucose (UA) Urine Ketones Urine Blood Urine Nitrite Ur Leukocyte Esterase Urine WBC (Auto) Urine RBC (Auto) Urine Osmolality Stool for White Cells 03/29/20 03/29/20 03/29/20 17:17 17:33 17:33 WBC 15.7 H RBC 2.58 L Hgb 9.7 L Hct 27.4 L MCV 106 H MCH 37.6 H MCHC 35.4 RDW 13.9 Plt Count 95 L Seg Neutrophils % Not Reportable Sodium Potassium Chloride Carbon Dioxide Anion Gap BUN Creatinine Est GFR ( Amer) Glucose Serum Osmolality Calcium Magnesium Total Bilirubin GGT AST Alkaline Phosphatase C-Reactive Protein Total Protein Albumin Lipase Urine Color [place]US[place]IN Urine Appearance CLEAR Urine pH 7.0 Ur Specific [place] 1.008 Urine Protein NEGATIVE Urine Glucose (UA) NEGATIVE Urine Ketones NEGATIVE Urine Blood NEGATIVE Urine Nitrite NEGATIVE Ur Leukocyte Esterase NEGATIVE Urine WBC (Auto) 0 Urine RBC (Auto) 0 Urine Osmolality 185 L Stool for White Cells 03/29/20 03/29/20 03/30/20 21:16 22:35 05:16 WBC 14.0 H RBC 2.50 L Hgb 9.4 L Hct 26.7 L MCV 107 H MCH 37.5 H MCHC 35.2 RDW 14.2 H Plt Count 75 L Seg Neutrophils % Not Reportable Sodium Potassium Chloride Carbon Dioxide Anion Gap BUN Creatinine Est GFR ( Amer) Glucose Serum Osmolality Calcium Magnesium Total Bilirubin GGT 111 H AST Alkaline Phosphatase C-Reactive Protein Total Protein Albumin Lipase Urine Color Urine Appearance Urine pH Ur Specific [place] Urine Protein Urine Glucose (UA) Urine Ketones Urine Blood Urine Nitrite Ur Leukocyte Esterase Urine WBC (Auto) Urine RBC (Auto) Urine Osmolality Stool for White Cells NO WBCs SEEN 03/30/20 03/30/20 05:16 05:16 WBC RBC Hgb Hct MCV MCH MCHC RDW Plt Count Seg Neutrophils % Sodium 127.8 L Potassium 3.7 Chloride 98 Carbon Dioxide 19 L Anion Gap 11 BUN 6 L Creatinine 0.80 Est GFR ( Amer) > 60 Glucose 86 Serum Osmolality Calcium 8.6 Magnesium 1.3 L Total Bilirubin 7.5 H GGT AST 194 H Alkaline Phosphatase 143 H C-Reactive Protein 10.8 H Total Protein 6.3 Albumin 2.5 L Lipase Urine Color Urine Appearance Urine pH Ur Specific [place] Urine Protein Urine Glucose (UA) Urine Ketones Urine Blood Urine Nitrite Ur Leukocyte Esterase Urine WBC (Auto) Urine RBC (Auto) Urine Osmolality Stool for White Cells Impressions: Abdomen/Pelvis CT 03/29/20 18:30 IMPRESSION: 1. Diffuse thickening of the colonic wall with no definitive involvement of the terminal ileum. This may represent Crohn's or ulcerative colitis. There is diffuse mesenteric adenopathy most likely reactive. 2. Pericholecystic edema. There is perihepatic fluid. Correlation with ultrasound is recommended. 3. Hepatosplenomegaly. Hepatic steatosis. 4. Small amount of free fluid in the right lower quadrant and pelvis. Abdomen Ultrasound 03/29/20 19:36 IMPRESSION: Echogenic liver which is coarsened in echotexture, suggestive of diffuse hepatocellular disease such as hepatic steatosis. Superimposed bidirectional flow within the portal vein with poorly assessed color Doppler. However, the portal vein appeared patent on the recent CT. As such, the bidirectional flow within the portal vein is potentially related to portal hypertension. Isolated gallbladder wall thickening, nonspecific. This could be related to underlying chronic liver disease. Suspect gallbladder sludge. Mild right hydronephrosis. Small amount of perihepatic ascites. copyright 2011 [employer]- All Rights Reserved Chest X-Ray 03/29/20 22:30 IMPRESSION: No acute disease. copyright 2011 [employer]- All Rights Reserved Assessment & Plan - Diagnosis (1) Nausea & vomiting Plan: will need EGD to rule out PUD, could be due to ETOH gastritis vs pancreatitis (2) Acute colitis Is this a current diagnosis for this admission?: Yes Plan: abnormal CT scan along with symptoms of diarrhea will need colonoscopy will wait on Covid testing (3) Anemia Is this a current diagnosis for this admission?: Yes Plan: will need to rule out inflammatory bowel disease Risks, benefits and alternatives to be discussed with the patient GI work up to include both EGD and colonoscopy (4) Elevated bilirubin Is this a current diagnosis for this admission?: Yes Plan: likely due to etoh hepatitis CT scan does not show any biliary dilation follow along - Time Time Spent: 50 to 70 Minutes
[2020-03-30] MEDS ORDERED: PREDNISONE 20 MG TABLET PO SCH (10:00)
--- NOTE | 2020-03-30 11:31 | RADIOLOGY REPORT (SQ) ---
EXAM DESCRIPTION: MRI ABDOMEN WITHOUT IMAGES COMPLETED DATE/TIME: 03/30/2020 10:56 am REASON FOR STUDY: MRCP, portal HTN, CASTRO, high LFT's/Bili COMPARISON: None. TECHNIQUE: Noncontrast MRCP. Source and MIP images reviewed. LIMITATIONS: Motion artifact. FINDINGS: Study very limited due to breathing motion artifact. No gallstones. No dilated ducts. S mall amount of ascites. IMPRESSION: Technical limitations. No stones or common bile duct abnormality. TECHNICAL DOCUMENTATION: JOB ID: [id number] 2010 [employer]- All Rights Reserved Reading location - IP/workstation name: [email or web address]
--- NOTE | 2020-03-30 15:28 | PDOC PROGRESS REPORT ---
Subjective Subjective:: Per Previous Physician: "VASU FELICIANO is a 25 year old male with no significant past medical history who presents with 2 to 3 weeks duration of nausea, vomiting and diarrhea. Patient reports that he has decreased appetite and whenever he tries to have a meal he throws up mostly ingested matter. Diarrhea is mostly watery but he also states that occasionally becomes mixed with bright red blood throughout his bowel movement. He also states that he has been having cough productive of blood-streaked sputum. Associated with this he also endorses a burning epigastric pain especially after having a meal or drinking water. Patient also states that he has cramping lower abdominal pain, fever, chills, pruritus and pleuritic chest pain. In the past 2 days he has been feeling dizzy when he gets up. His sister had bad cough and fever recently but he states that she tested negative for Covid 19. He drinks 8 cans of beer daily and states that in the past he has had tremors and excessive anxiety and agitation when trying to quit alcohol. He denies taking any [id number] or herbal medications. He also denied any recent travel." 03/30/2020 Patient mated overnight for suspected alcoholic hepatitis and liver failure, diarrhea, pancolitis. Bilirubin is significantly elevated. I ordered MRCP and consulted GI. We will check ammonia level as the patient is somewhat slow to respond to my questioning and is something of a flat affect. CRP mildly elevated and ESR within normal limits. Patient was started on steroids on admission for alcoholic hepatitis and possible inflammatory bowel disease. C. difficile is negative. Patient denies any localized abdominal pain. Reason For Visit: ACUTE COLITIS Physical Exam Vital Signs: Temp Pulse Resp BP Pulse Ox 98.4 F 102 H 20 136/59 H 100 03/30/20 08:23 03/30/20 08:23 03/30/20 08:23 03/30/20 08:23 03/30/20 08:23 Intake & Output 03/29/20 03/30/20 03/31/20 06:59 06:59 06:59 Intake Total 3000 Output Total 0 Balance 3000 Weight 73.8 kg Exam: General appearance: PRESENT: no acute distress, ill-appearing white male Head exam: PRESENT: atraumatic, normocephalic Eye exam: PRESENT: conjunctiva pink. scleral icterus Mouth exam: PRESENT: moist Respiratory exam: PRESENT: clear to auscultation maddy. ABSENT: rales, rhonchi, wheezes Cardiovascular exam: PRESENT: RRR. ABSENT: diastolic murmur, rubs, systolic murmur GI/Abdominal exam: PRESENT: normal bowel sounds, soft. ABSENT: distended, guarding, mass, organolmegaly, rebound, tenderness Neurological exam: PRESENT: alert, awake, oriented to person, oriented to place, oriented to time Psychiatric exam: PRESENT: appropriate affect, normal mood Skin exam: PRESENT: dry, intact, warm Results Laboratory Results: 03/30/20 05:16 03/30/20 05:16 03/29/20 03/29/20 03/29/20 15:57 15:57 15:57 WBC Cancelled RBC Cancelled Hgb Cancelled Hct Cancelled MCV Cancelled MCH Cancelled MCHC Cancelled RDW Cancelled Plt Count Cancelled Seg Neutrophils % Cancelled Sodium 126.6 L Potassium 3.2 L Chloride 90 L Carbon Dioxide 24 Anion Gap 13 BUN 5 L Creatinine 0.72 Est GFR ( Amer) > 60 Glucose 101 Serum Osmolality 290 Calcium 9.7 Magnesium Total Bilirubin 7.7 H GGT AST 189 H Alkaline Phosphatase 201 H Ammonia C-Reactive Protein Total Protein 7.7 Albumin 3.2 L Lipase 522.3 H Urine Color Urine Appearance Urine pH Ur Specific [place] Urine Protein Urine Glucose (UA) Urine Ketones Urine Blood Urine Nitrite Ur Leukocyte Esterase Urine WBC (Auto) Urine RBC (Auto) Urine Osmolality Stool for White Cells 03/29/20 03/29/20 03/29/20 17:17 17:33 17:33 WBC 15.7 H RBC 2.58 L Hgb 9.7 L Hct 27.4 L MCV 106 H MCH 37.6 H MCHC 35.4 RDW 13.9 Plt Count 95 L Seg Neutrophils % Not Reportable Sodium Potassium Chloride Carbon Dioxide Anion Gap BUN Creatinine Est GFR ( Amer) Glucose Serum Osmolality Calcium Magnesium Total Bilirubin GGT AST Alkaline Phosphatase Ammonia C-Reactive Protein Total Protein Albumin Lipase Urine Color [place]IN Urine Appearance CLEAR Urine pH 7.0 Ur Specific [place] 1.008 Urine Protein NEGATIVE Urine Glucose (UA) NEGATIVE Urine Ketones NEGATIVE Urine Blood NEGATIVE Urine Nitrite NEGATIVE Ur Leukocyte Esterase NEGATIVE Urine WBC (Auto) 0 Urine RBC (Auto) 0 Urine Osmolality 185 L Stool for White Cells 03/29/20 03/29/20 03/30/20 21:16 22:35 05:16 WBC 14.0 H RBC 2.50 L Hgb 9.4 L Hct 26.7 L MCV 107 H MCH 37.5 H MCHC 35.2 RDW 14.2 H Plt Count 75 L Seg Neutrophils % Not Reportable Sodium Potassium Chloride Carbon Dioxide Anion Gap BUN Creatinine Est GFR ( Amer) Glucose Serum Osmolality Calcium Magnesium Total Bilirubin GGT 111 H AST Alkaline Phosphatase Ammonia C-Reactive Protein Total Protein Albumin Lipase Urine Color Urine Appearance Urine pH Ur Specific [place] Urine Protein Urine Glucose (UA) Urine Ketones Urine Blood Urine Nitrite Ur Leukocyte Esterase Urine WBC (Auto) Urine RBC (Auto) Urine Osmolality Stool for White Cells NO WBCs SEEN 03/30/20 03/30/20 03/30/20 05:16 05:16 13:00 WBC RBC Hgb Hct MCV MCH MCHC RDW Plt Count Seg Neutrophils % Sodium 127.8 L Potassium 3.7 Chloride 98 Carbon Dioxide 19 L Anion Gap 11 BUN 6 L Creatinine 0.80 Est GFR ( Amer) > 60 Glucose 86 Serum Osmolality Calcium 8.6 Magnesium 1.3 L Total Bilirubin 7.5 H GGT AST 194 H Alkaline Phosphatase 143 H Ammonia 42.1 H C-Reactive Protein 10.8 H Total Protein 6.3 Albumin 2.5 L Lipase Urine Color Urine Appearance Urine pH Ur Specific [place] Urine Protein Urine Glucose (UA) Urine Ketones Urine Blood Urine Nitrite Ur Leukocyte Esterase Urine WBC (Auto) Urine RBC (Auto) Urine Osmolality Stool for White Cells Impressions: Abdomen/Pelvis CT 03/29/20 18:30 IMPRESSION: 1. Diffuse thickening of the colonic wall with no definitive involvement of the terminal ileum. This may represent Crohn's or ulcerative colitis. There is diffuse mesenteric adenopathy most likely reactive. 2. Pericholecystic edema. There is perihepatic fluid. Correlation with ultrasound is recommended. 3. Hepatosplenomegaly. Hepatic steatosis. 4. Small amount of free fluid in the right lower quadrant and pelvis. Abdomen Ultrasound 03/29/20 19:36 IMPRESSION: Echogenic liver which is coarsened in echotexture, suggestive of diffuse hepatocellular disease such as hepatic steatosis. Superimposed bidirectional flow within the portal vein with poorly assessed color Doppler. However, the portal vein appeared patent on the recent CT. As such, the bidirectional flow within the portal vein is potentially related to portal hypertension. Isolated gallbladder wall thickening, nonspecific. This could be related to underlying chronic liver disease. Suspect gallbladder sludge. Mild right hydronephrosis. Small amount of perihepatic ascites. copyright 2010 [employer]- All Rights Reserved Chest X-Ray 03/29/20 22:30 IMPRESSION: No acute disease. copyright 2010 [employer]- All Rights Reserved Abdomen MRI 03/30/20 00:00 IMPRESSION: Technical limitations. No stones or common bile duct abnormality. Assessment and Plan - Diagnosis (1) Alcoholic hepatitis with ascites Is this a current diagnosis for this admission?: Yes (2) Alcohol dependence Is this a current diagnosis for this admission?: Yes (3) Acute colitis Is this a current diagnosis for this admission?: Yes (4) Alcoholic gastritis Qualifiers: Chronicity: acute Gastritis bleeding: presence of bleeding unspecified Qualified Code(s): K29.20 - Alcoholic gastritis without bleeding Is this a current diagnosis for this admission?: Yes (5) Elevated bilirubin Is this a current diagnosis for this admission?: Yes (6) Hypokalemia Is this a current diagnosis for this admission?: Yes (7) Hyponatremia Is this a current diagnosis for this admission?: Yes (8) Nausea & vomiting Is this a current diagnosis for this admission?: Yes (9) Tobacco dependence Is this a current diagnosis for this admission?: Yes - Plan Summary Summary: (1) Acute colitis Is this a current diagnosis for this admission?: Yes Plan: Per Previous Physician: "Patient presents with 2 weeks duration of blood-streaked diarrhea CT abdomen showed diffuse thickening of colonic wall no involvement of the terminal ileum and it diffuse mesenteric lymphadenopathy, likely reactive Inflammatory bowel disease is a possible cause vs infectious etiology C. difficile was negative Continue Zosyn 3.375 gm IV every 6 hourly Zofran for nausea and vomiting Continue supportive care" GI consulted: Planning EGD and colonoscopy Infectious versus inflammatory Steroids started Continue antibiotics (2) Alcoholic gastritis Qualifiers: Chronicity: acute Gastritis bleeding: presence of bleeding unspecified Qualified Code(s): K29.20 - Alcoholic gastritis without bleeding Is this a current diagnosis for this admission?: Yes Plan: Per Previous Physician: "Patient reports epigastric pain with nausea and vomiting Mildly elevated lipase likely to be due to gastritis CT abdomen showed no sign of pancreatic inflammation or peripancreatic fluid collection Will keep him n.p.o. for now, and advance when he tolerates Pantoprazole 40 mg IV twice daily Continue IV hydration" GI following (3) Alcoholic hepatitis with ascites Is this a current diagnosis for this admission?: Yes Plan: Per Previous Physician: "A chronic alcoholic, now presents with nausea, vomiting, jaundice. Has no encephalopathy Elevated liver enzymes with AST/ALT ratio 2:1 consistent with alcoholic hepatitis And also has elevated bilirubin, leukocytosis INR is elevated at 3.04, has hypoalbuminemia Requested hepatitis panel, GGT Has signs of portal hypertension on imaging Nausea Vito alcoholic hepatitis score of 9, maddery's score of 95 indicating patient would likely benefit from steroid Started on prednisone 40 mg daily Continue IV hydration and monitor CMP" MRCP did not show choledocholithiasis (4) Hyponatremia Is this a current diagnosis for this admission?: Yes Plan: Likely due to volume depletion from GI loss Serum sodium was 126 Ordered serum osmolality, urine osmolality and urine sodium Continue IV hydration with a goal of correction being 4 to 6 mEq in the first 24 hours (5) Hypokalemia Is this a current diagnosis for this admission?: Yes Plan: Serum potassium 3.2 on presentation Potassium chloride was given Monitor electrolytes and replete as needed (6) Elevated bilirubin Is this a current diagnosis for this admission?: Yes Plan: Likely due to alcoholic hepatitis Liver enzymes consistent with alcoholic hepatitis CT abdomen showed hepatomegaly, ultrasound also showed diffuse hepatocellular disease(steatosis) with mild right perihepatic ascites and signs of portal hypertension Follow-up with hepatitis panel, GGT Continue monitoring CMP and treat underlying cause (7) Leukocytosis Is this a current diagnosis for this admission?: Yes Plan: Likely due to inflammatory colitis and alcoholic hepatitis Follow-up with blood culture Continue treating the underlying causes (8) Anemia Is this a current diagnosis for this admission?: Yes Plan: Per Previous Physician: "H&H on presentation was 9.7/27.4 with an MCV of 106 Likely due to GI blood loss and chronic alcoholism Will obtain folic acid and vitamin B12 levels Continue monitoring CBC and will transfuse if hemoglobin falls below 7.0" (9) Thrombocytopenia Is this a current diagnosis for this admission?: Yes Plan: Likely due to splenic sequestration from portal hypertension Will continue to monitor (10) Alcohol abuse and dependency Is this a current diagnosis for this admission?: Yes Plan: Per Previous Physician: "Patient's alcohol level was 79 on presentation He reports withdrawal symptoms in the past when trying to quit, but no history of seizure or DTs Started him on symptom triggered CIWA with as needed lorazepam" Reportedly drinks 8 or more beers per day for several years (11) Tobacco dependence Is this a current diagnosis for this admission?: Yes Plan: Encouraged and counseled him on tobacco cessation Nicotine patch while inpatient - Time Time Spent with patient: 25-34 minutes Medications reviewed and adjusted accordingly: Yes Anticipated Discharge Disposition: Home, Self Care Anticipated Discharge Timeframe: within 72 hours - Inpatient Certification Based on my medical assessment, after consideration of the patient's comorbidities, presenting symptoms, or acuity I expect that the services needed warrant INPATIENT care.: Yes I certify that my determination is in accordance with my understanding of Medicare's requirements for reasonable and necessary INPATIENT services [42 CFR 412.3e].: Yes Medical Necessity: Significant Comorbidiites Make Outpatient Treatment Too Risk y, Need Close Monitoring Due to Risk of Patient Decompensation, Need For IV Fluids, Need for IV Antibiotics, Risk of Complication if Not Cared For in Hospital, Risk of Diagnosis Which Will Require Inpatient Eval/Care/Monitoring
[2020-03-30] MEDS: RIFAXIMIN 550 MG TABLET PO SCH (17:26)
--- NOTE | 2020-03-30 18:43 | Progress Note ---
Provider Note Provider Note: Has elevated INR, will need to correct with Vit K while waiting for Covid results to come back this heop facilitate GI work up .
[2020-03-31 04:36] LABS: HEPATITS B SURFACE ANTIGEN Negative (Negative)
[2020-03-31] MEDS: METHYLPREDNISOLONE INJ 40 MG/1 ML SDV IV SCH ×3 (05:12→21:41)
[2020-03-31] MEDS: PIPERACILLIN SODIUM/TAZOBACTAM 3.375 GM in NORMAL SALINE 100 ML IV SCH ×3 (05:13→17:36)
[2020-03-31] MEDS: RINGERS SOLUTION,LACTATED 1,000 ML IV PRN ×2 (05:53→21:41)
[2020-03-31 06:43] LABS: FOLATE 3.57 ng/mL (>2.76)
[2020-03-31 07:17] LABS: HEPATITIS C VIRUS ANTIBODY 0.1 s/co ratio (0.0-0.9)
[2020-03-31] MEDS ORDERED: POLYETHYLENE GLYCOL 3350 POWDER 17 GM/1 PACKET PO ONE (07:48)
--- NOTE | 2020-03-31 07:48 | PDOC PROGRESS REPORT ---
Subjective Date:: 03/31/20 Subjective:: Covid test is negative can proceed with GI work after correction of INR will likely need EGD and colonoscopy steroid started for alcoholic hepatitis MRCP is negative will schedule test for tomorrow Reason For Visit: ACUTE COLITIS Physical Exam Vital Signs: Temp Pulse Resp BP Pulse Ox 97.6 F 76 20 128/71 H 98 03/31/20 07:25 03/31/20 07:00 03/31/20 03:20 03/31/20 03:20 03/31/20 03:20 Intake & Output 03/30/20 03/31/20 04/01/20 06:59 06:59 06:59 Intake Total 3000 2000 Output Total 0 150 Balance 3000 1850 Weight 73.8 kg 72 kg General appearance: PRESENT: no acute distress Head exam: PRESENT: atraumatic, normocephalic Eye exam: PRESENT: EOMI, PERRLA. ABSENT: nystagmus Mouth exam: PRESENT: moist, neck supple Neck exam: ABSENT: meningismus, tenderness, thyromegaly Respiratory exam: PRESENT: symmetrical, unlabored. ABSENT: tachypnea Cardiovascular exam: PRESENT: RRR, +S1, +S2 GI/Abdominal exam: PRESENT: soft. ABSENT: Banuelos's sign, rebound, rigid Extremities exam: ABSENT: joint swelling Musculoskeletal exam: PRESENT: full ROM Skin exam: PRESENT: normal color. ABSENT: mottled, pallor, urticaria, vesicles Results Laboratory Results: 03/30/20 05:16 03/30/20 03/30/20 03/31/20 05:16 13:00 04:50 Ammonia 42.1 H C-Reactive Protein 10.8 H Vitamin B12 878.0 Folate 3.57 Impressions: Abdomen/Pelvis CT 03/29/20 18:30 IMPRESSION: 1. Diffuse thickening of the colonic wall with no definitive involvement of the terminal ileum. This may represent Crohn's or ulcerative colitis. There is diffuse mesenteric adenopathy most likely reactive. 2. Pericholecystic edema. There is perihepatic fluid. Correlation with ultrasound is recommended. 3. Hepatosplenomegaly. Hepatic steatosis. 4. Small amount of free fluid in the right lower quadrant and pelvis. Abdomen Ultrasound 03/29/20 19:36 IMPRESSION: Echogenic liver which is coarsened in echotexture, suggestive of diffuse hepatocellular disease such as hepatic steatosis. Superimposed bidirectional flow within the portal vein with poorly assessed color Doppler. However, the portal vein appeared patent on the recent CT. As such, the bidirectional flow within the portal vein is potentially related to portal hypertension. Isolated gallbladder wall thickening, nonspecific. This could be related to underlying chronic liver disease. Suspect gallbladder sludge. Mild right hydronephrosis. Small amount of perihepatic ascites. copyright 2010 [employer]- All Rights Reserved Chest X-Ray 03/29/20 22:30 IMPRESSION: No acute disease. copyright 2010 [employer]- All Rights Reserved Abdomen MRI 03/30/20 00:00 IMPRESSION: Technical limitations. No stones or common bile duct abnormality. Assessment & Plan - Diagnosis (1) Nausea & vomiting Is this a current diagnosis for this admission?: Yes Plan: will rule out PUD will schedule EGD (2) Acute colitis Is this a current diagnosis for this admission?: Yes Plan: will need colonoscopy as well to rule out inflammatory bowel disease (3) Anemia Is this a current diagnosis for this admission?: Yes (4) Elevated bilirubin Is this a current diagnosis for this admission?: Yes Plan: continue to follow - Time Time Spent with patient: 15-24 minutes
[2020-03-31] MEDS ORDERED: INFLUENZA QUAD (6MOS+) 2020-21 VAC 0.5 ML SYR IM ONE (08:00)
[2020-03-31 08:09] LABS: ANION GAP 5 (5-19); BLOOD UREA NITROGEN 11 mg/dL (7-20); CALCIUM 8.8 mg/dL (8.4-10.2); CARBON DIOXIDE 24 mmol/L (22-30); CHLORIDE 104 mmol/L (98-107); GLUCOSE 112 mg/dL (75-110); POTASSIUM 3.9 mmol/L (3.6-5.0)
[2020-03-31] MEDS: THIAMINE HCL 100 MG TABLET PO SCH (09:25)
[2020-03-31] MEDS: MULTIVITAMIN TABLET PO SCH (09:25)
[2020-03-31] MEDS: FOLIC ACID 1 MG TABLET PO SCH (09:25)
[2020-03-31] MEDS: NICOTINE 14 MG/24 HR PATCH.TD24 TD SCH (09:25)
[2020-03-31] MEDS: PANTOPRAZOLE SODIUM 40 MG VIAL IV SCH ×2 (09:25→21:41)
[2020-03-31] MEDS: RIFAXIMIN 550 MG TABLET PO SCH ×2 (09:25→17:36)
[2020-03-31] MEDS ORDERED: POLYETHYLENE GLYCOL 3350 238 GM POWDER PO PRN (10:00)
[2020-03-31] MEDS: PHYTONADIONE 5 MG TABLET PO SCH (10:23)
--- NOTE | 2020-03-31 11:39 | PDOC PROGRESS REPORT ---
Subjective Subjective:: Per Previous Physician: "VASU FELICIANO is a 25 year old male with no significant past medical history who presents with 2 to 3 weeks duration of nausea, vomiting and diarrhea. Patient reports that he has decreased appetite and whenever he tries to have a meal he throws up mostly ingested matter. Diarrhea is mostly watery but he also states that occasionally becomes mixed with bright red blood throughout his bowel movement. He also states that he has been having cough productive of blood-streaked sputum. Associated with this he also endorses a burning epigastric pain especially after having a meal or drinking water. Patient also states that he has cramping lower abdominal pain, fever, chills, pruritus and pleuritic chest pain. In the past 2 days he has been feeling dizzy when he gets up. His sister had bad cough and fever recently but he states that she tested negative for Covid 19. He drinks 8 cans of beer daily and states that in the past he has had tremors and excessive anxiety and agitation when trying to quit alcohol. He denies taking any [id number] or herbal medications. He also denied any recent travel." 03/30/2020 Patient mated overnight for suspected alcoholic hepatitis and liver failure, diarrhea, pancolitis. Bilirubin is significantly elevated. I ordered MRCP and consulted GI. We will check ammonia level as the patient is somewhat slow to respond to my questioning and is something of a flat affect. CRP mildly elevated and ESR within normal limits. Patient was started on steroids on admission for alcoholic hepatitis and possible inflammatory bowel disease. C. difficile is negative. Patient denies any localized abdominal pain. 03/31/2020 Patient states he feels perhaps slightly better versus the same today. Per my discussion with nursing, patient's mother has voiced that the patient has a flat odd affect ever since he began using methamphetamines 5 years ago. Patient states he quit using drugs 4 years ago and has not been using any illicit drugs for the past 4 years. Patient's INR is notably elevated at 3 we will start the patient on vitamin K. Patient is on a bowel prep today with plans for colonoscopy and EGD tomorrow. GI following. Reason For Visit: ACUTE COLITIS Physical Exam Vital Signs: Temp Pulse Resp BP Pulse Ox 98.5 F 68 17 120/61 100 03/31/20 08:26 03/31/20 08:26 03/31/20 08:26 03/31/20 08:26 03/31/20 08:26 Intake & Output 03/30/20 03/31/20 04/01/20 06:59 06:59 06:59 Intake Total 3000 2000 Output Total 0 150 Balance 3000 1850 Weight 73.8 kg 72 kg Exam: General appearance: PRESENT: no acute distress, ill-appearing white male, states he feels about the same today Head exam: PRESENT: atraumatic, normocephalic Eye exam: PRESENT: conjunctiva pink. scleral icterus Mouth exam: PRESENT: moist Respiratory exam: PRESENT: clear to auscultation maddy. ABSENT: rales, rhonchi, wheezes Cardiovascular exam: PRESENT: RRR. ABSENT: diastolic murmur, rubs, systolic murmur GI/Abdominal exam: PRESENT: normal bowel sounds, soft. ABSENT: distended, guarding, mass, organolmegaly, rebound, tenderness Neurological exam: PRESENT: alert, awake, oriented to person, oriented to place, oriented to time Psychiatric exam: PRESENT: Flat odd affect, normal mood Skin exam: PRESENT: dry, intact, warm Results Laboratory Results: 03/30/20 05:16 03/31/20 04:50 03/30/20 03/31/20 03/31/20 13:00 04:50 04:50 Sodium 133.1 L Potassium 3.9 Chloride 104 Carbon Dioxide 24 Anion Gap 5 BUN 11 Creatinine 0.67 Est GFR ( Amer) > 60 Glucose 112 H Calcium 8.8 Ammonia 42.1 H Vitamin B12 878.0 Folate 3.57 03/29/20 21:16 Stool - Stool - Final Impressions: Abdomen/Pelvis CT 03/29/20 18:30 IMPRESSION: 1. Diffuse thickening of the colonic wall with no definitive involvement of the terminal ileum. This may represent Crohn's or ulcerative colitis. There is diffuse mesenteric adenopathy most likely reactive. 2. Pericholecystic edema. There is perihepatic fluid. Correlation with ultrasound is recommended. 3. Hepatosplenomegaly. Hepatic steatosis. 4. Small amount of free fluid in the right lower quadrant and pelvis. Abdomen Ultrasound 03/29/20 19:36 IMPRESSION: Echogenic liver which is coarsened in echotexture, suggestive of diffuse hepatocellular disease such as hepatic steatosis. Superimposed bidirectional flow within the portal vein with poorly assessed color Doppler. However, the portal vein appeared patent on the recent CT. As such, the bidirectional flow within the portal vein is potentially related to portal hypertension. Isolated gallbladder wall thickening, nonspecific. This could be related to underlying chronic liver disease. Suspect gallbladder sludge. Mild right hydronephrosis. Small amount of perihepatic ascites. copyright 2010 [employer]- All Rights Reserved Chest X-Ray 03/29/20 22:30 IMPRESSION: No acute disease. copyright 2010 [employer]- All Rights Reserved Abdomen MRI 03/30/20 00:00 IMPRESSION: Technical limitations. No stones or common bile duct abnormality. Assessment and Plan - Diagnosis (1) Alcoholic hepatitis with ascites Is this a current diagnosis for this admission?: Yes Plan: A chronic alcoholic, now presents with nausea, vomiting, jaundice. Has no encephalopathy Elevated liver enzymes with AST/ALT ratio 2:1 consistent with alcoholic hepatitis And also has elevated bilirubin, leukocytosis INR is elevated at 3.04, has hypoalbuminemia Requested hepatitis panel, GGT Has signs of portal hypertension on imaging Nausea Vito alcoholic hepatitis score of 9, maddery's score of 95 indicating patient would likely benefit from steroid Started on prednisone 40 mg daily Continue IV hydration and monitor CMP (2) Alcohol dependence Is this a current diagnosis for this admission?: Yes (3) Acute colitis Is this a current diagnosis for this admission?: Yes (4) Alcoholic gastritis Qualifiers: Chronicity: acute Gastritis bleeding: presence of bleeding unspecified Qualified Code(s): K29.20 - Alcoholic gastritis without bleeding Is this a current diagnosis for this admission?: Yes (5) Elevated bilirubin Is this a current diagnosis for this admission?: Yes (6) Hypokalemia Is this a current diagnosis for this admission?: Yes (7) Hyponatremia Is this a current diagnosis for this admission?: Yes (8) Nausea & vomiting Is this a current diagnosis for this admission?: Yes (9) Tobacco dependence Is this a current diagnosis for this admission?: Yes - Plan Summary Summary: (1) Acute colitis Is this a current diagnosis for this admission?: Yes Plan: Per Previous Physician: "Patient presents with 2 weeks duration of blood-streaked diarrhea CT abdomen showed diffuse thickening of colonic wall no involvement of the terminal ileum and it diffuse mesenteric lymphadenopathy, likely reactive Inflammatory bowel disease is a possible cause vs infectious etiology C. difficile was negative Continue Zosyn 3.375 gm IV every 6 hourly Zofran for nausea and vomiting Continue supportive care" GI consulted: Planning EGD and colonoscopy 04/01 Infectious versus inflammatory Steroids started Continue antibiotics Stool culture not growing any invasive pathogens Ammonia elevated, started on rifaximin only as patient is already having diarrhea and lactulose would worsen this (2) Alcoholic gastritis Qualifiers: Chronicity: acute Gastritis bleeding: presence of bleeding unspecified Qualified Code(s): K29.20 - Alcoholic gastritis without bleeding Is this a current diagnosis for this admission?: Yes Plan: Per Previous Physician: "Patient reports epigastric pain with nausea and vomiting Mildly elevated lipase likely to be due to gastritis CT abdomen showed no sign of pancreatic inflammation or peripancreatic fluid collection Will keep him n.p.o. for now, and advance when he tolerates Pantoprazole 40 mg IV twice daily Continue IV hydration" GI following (3) Alcoholic hepatitis with ascites Is this a current diagnosis for this admission?: Yes Plan: Per Previous Physician: "A chronic alcoholic, now presents with nausea, vomiting, jaundice. Has no encephalopathy Elevated liver enzymes with AST/ALT ratio 2:1 consistent with alcoholic hepatitis And also has elevated bilirubin, leukocytosis INR is elevated at 3.04, has hypoalbuminemia Requested hepatitis panel, GGT Has signs of portal hypertension on imaging Nausea Vito alcoholic hepatitis score of 9, maddery's score of 95 indicating patient would likely benefit from steroid Started on prednisone 40 mg daily Continue IV hydration and monitor CMP" MRCP did not show choledocholithiasis Steroids (4) Hyponatremia Is this a current diagnosis for this admission?: Yes Plan: Per Previous Physician: "Likely due to volume depletion from GI loss Serum sodium was 126 Ordered serum osmolality, urine osmolality and urine sodium Continue IV hydration with a goal of correction being 4 to 6 mEq in the first 24 hours" Trend BMP (5) Hypokalemia Is this a current diagnosis for this admission?: Yes Plan: Serum potassium 3.2 on presentation Potassium chloride was given Monitor electrolytes and replete as needed (6) Elevated bilirubin Is this a current diagnosis for this admission?: Yes Plan: Per Previous Physician: "Likely due to alcoholic hepatitis Liver enzymes consistent with alcoholic hepatitis CT abdomen showed hepatomegaly, ultrasound also showed diffuse hepatocellular disease(steatosis) with mild right perihepatic ascites and signs of portal hypertension Follow-up with hepatitis panel, GGT Continue monitoring CMP and treat underlying cause" (7) Leukocytosis Is this a current diagnosis for this admission?: Yes Plan: Likely due to inflammatory colitis and alcoholic hepatitis Negative blood culture Continue treating the underlying causes (8) Anemia Is this a current diagnosis for this admission?: Yes Plan: Per Previous Physician: "H&H on presentation was 9.7/27.4 with an MCV of 106 Likely due to GI blood loss and chronic alcoholism Will obtain folic acid and vitamin B12 levels Continue monitoring CBC and will transfuse if hemoglobin falls below 7.0" (9) Thrombocytopenia Is this a current diagnosis for this admission?: Yes Plan: Likely due to splenic sequestration from portal hypertension Will continue to monitor (10) Alcohol abuse and dependency Is this a current diagnosis for this admission?: Yes Plan: Per Previous Physician: "Patient's alcohol level was 79 on presentation He reports withdrawal symptoms in the past when trying to quit, but no history of seizure or DTs Started him on symptom triggered CIWA with as needed lorazepam" Reportedly drinks 8 or more beers per day for several years (11) Tobacco dependence Is this a current diagnosis for this admission?: Yes Plan: Encouraged and counseled him on tobacco cessation Nicotine patch while inpatient - Time Time Spent with patient: 25-34 minutes Medications reviewed and adjusted accordingly: Yes Anticipated Discharge Disposition: Home, Self Care Anticipated Discharge Timeframe: within 72 hours - Inpatient Certification Based on my medical assessment, after consideration of the patient's christi rbidities, presenting symptoms, or acuity I expect that the services needed warrant INPATIENT care.: Yes I certify that my determination is in accordance with my understanding of Medicare's requirements for reasonable and necessary INPATIENT services [42 CFR 412.3e].: Yes Medical Necessity: Significant Comorbidiites Make Outpatient Treatment Too Risky, Need Close Monitoring Due to Risk of Patient Decompensation, Need for Surgery, Risk of Complication if Not Cared For in Hospital, Risk of Diagnosis Which Will Require Inpatient Eval/Care/Monitoring
[2020-04-01] MEDS ORDERED: PIPERACILLIN/TAZOBACTAM 3.375 GM VIAL IV ONE (00:43)
[2020-04-01] MEDS: METHYLPREDNISOLONE INJ 40 MG/1 ML SDV IV SCH ×2 (05:30→16:59)
[2020-04-01] MEDS: PIPERACILLIN SODIUM/TAZOBACTAM 3.375 GM in NORMAL SALINE 100 ML IV SCH ×5 (05:36→18:08)
[2020-04-01 05:52] LABS: ABSOLUTE BASOPHILS # (AUTO) 0.1 10^3/uL (0.0-0.2); ABSOLUTE LYMPHOCYTES (AUTO) 3.4 10^3/uL (0.5-4.7); ABSOLUTE NEUT (AUTO) 12.5 10^3/uL (1.7-8.2); BASOPHILS % (AUTO) 0.3 % (0-2); HEMATOCRIT 24.9 % (37.9-51.0); HEMOGLOBIN 8.9 g/dL (13.5-17.0); LYMPHOCYTES % (AUTO) 19.9 % (13-45); MEAN CORPUSCULAR HEMOGLOBIN 37.7 pg (27.0-33.4); MEAN CORPUSCULAR HGB CONC 35.6 g/dL (32.0-36.0); MEAN CORPUSCULAR VOLUME 106 fl (80-97); MONOCYTES % (AUTO) 5.7 % (3-13); RED BLOOD COUNT 2.36 10^6/uL (4.35-5.55); SEGMENTED NEUTROPHILS % (AUTO) 74.1 % (42-78); TOTAL CELLS COUNTED % (AUTO) 100 %; WHITE BLOOD COUNT 16.9 10^3/uL (4.0-10.5)
[2020-04-01 06:10] LABS: ANION GAP 6 (5-19); BLOOD UREA NITROGEN 14 mg/dL (7-20); CALCIUM 8.7 mg/dL (8.4-10.2); CARBON DIOXIDE 27 mmol/L (22-30); CHLORIDE 103 mmol/L (98-107); GLUCOSE 114 mg/dL (75-110); POTASSIUM 3.8 mmol/L (3.6-5.0)
[2020-04-01 06:30] LABS: PLATELET COUNT 111 10^3/uL (150-450)
[2020-04-01 09:30] LABS: INTERNATIONAL RATION (INR) 2.68; PROTHROMBIN TIME 28.5 SEC (11.4-15.4)
[2020-04-01] MEDS: NICOTINE 14 MG/24 HR PATCH.TD24 TD SCH (10:01)
[2020-04-01] MEDS: PANTOPRAZOLE SODIUM 40 MG VIAL IV SCH ×2 (10:01→21:09)
[2020-04-01] MEDS: THIAMINE HCL 100 MG TABLET PO SCH (10:01)
[2020-04-01] MEDS: MULTIVITAMIN TABLET PO SCH (10:02)
[2020-04-01] MEDS: FOLIC ACID 1 MG TABLET PO SCH (10:02)
[2020-04-01] MEDS: RIFAXIMIN 550 MG TABLET PO SCH ×2 (10:03→18:08)
[2020-04-01] MEDS ORDERED: LIDOCAINE 2% INJ-PF (20 MG/ML) 10 ML AMPUL ONE (12:40)
[2020-04-01] MEDS ORDERED: PROPOFOL INJ 200 MG/20 ML VIAL IV ONE ×2 (12:41)
[2020-04-01] MEDS ORDERED: GLUCAGON,HUMAN RECOMB 1 MG INJ ONE (16:46)
[2020-04-01] MEDS ORDERED: NALOXONE HCL INJ/PF 0.4 MG/1 ML SDV ONE (16:46)
[2020-04-01] MEDS ORDERED: EPINEPHRINE INJ 1 MG/10 ML DISP.SYRIN ONE (16:46)
[2020-04-01] MEDS: PHYTONADIONE 5 MG TABLET PO SCH (16:58)
--- NOTE | 2020-04-01 17:32 | Operative Report ---
Operative Report DATE OF SURGERY: 04/01/20 Operative Report: The risk, benefits and alternatives of the procedure including the risk of bleeding, perforation requiring surgery have been explained to the patient in detail and informed consent has been obtained. The patient is taken to the operating room and placed in a left, lateral decubital position. Timeout was called. Propofol medication is administered. Rectal examination is done which did not reveal any masses, tears or fissures. An Olympus videoscope was introduced into the patient's rectum and subsequently insufflated. Scope was then carefully advanced all the way to the cecum. Cecum was identified by the usual anatomical landmarks of the ileocecal valve as well as the appendiceal office. Photodocumentation is obtained. Scope was then sequentially pulled back via the various segments of the colon including the ascending colon, hepatic flexure, transverse colon, splenic flexure, descending colon finding to the rectosigmoid portions of the colon. Retroflexion maneuvers performed. The risks benefits and alternatives of the procedure explained to the patient in detail and informed consent is obtained.A GIF Olympus video scope was inserted into the patient's mouth and hypopharynx ,the esophagus is identified intubated and insufflated, the scope was then advanced through the esophagus stomach and duodenum, retroflexion maneuver is done the esophagus stomach and first and second portions of the duodenum examined PREOPERATIVE DIAGNOSIS: Nausea vomiting. Apparent abnormal CT scan POSTOPERATIVE DIAGNOSIS: Normal colonoscopy to the cecum. The thickening noted on CT scan is just likely due to incomplete distention of the colon in the area. No biopsies are taken. Normal EGD OPERATION: Diagnostic colonoscopy. Diagnostic EGD SURGEON: ADE SCRUGGS ANESTHESIA: LMAC TISSUE REMOVED OR ALTERED: None. COMPLICATIONS: None. ESTIMATED BLOOD LOSS: None. INTRAOPERATIVE FINDINGS: As noted above. PROCEDURE: Patient tolerated procedure well. No immediate postprocedure complications are noted. Patient is sent back to his room in good condition. Resume previous diet Resume previous activity level Follow-up as outpatient
--- NOTE | 2020-04-01 17:44 | PDOC PROGRESS REPORT ---
Subjective Subjective:: Per Previous Physician: "VASU FELICIANO is a 25 year old male with no significant past medical history who presents with 2 to 3 weeks duration of nausea, vomiting and diarrhea. Patient reports that he has decreased appetite and whenever he tries to have a meal he throws up mostly ingested matter. Diarrhea is mostly watery but he also states that occasionally becomes mixed with bright red blood throughout his bowel movement. He also states that he has been having cough productive of blood-streaked sputum. Associated with this he also endorses a burning epigastric pain especially after having a meal or drinking water. Patient also states that he has cramping lower abdominal pain, fever, chills, pruritus and pleuritic chest pain. In the past 2 days he has been feeling dizzy when he gets up. His sister had bad cough and fever recently but he states that she tested negative for Covid 19. He drinks 8 cans of beer daily and states that in the past he has had tremors and excessive anxiety and agitation when trying to quit alcohol. He denies taking any [id number] or herbal medications. He also denied any recent travel." 03/30/2020 Patient mated overnight for suspected alcoholic hepatitis and liver failure, diarrhea, pancolitis. Bilirubin is significantly elevated. I ordered MRCP and consulted GI. We will check ammonia level as the patient is somewhat slow to respond to my questioning and is something of a flat affect. CRP mildly elevated and ESR within normal limits. Patient was started on steroids on admission for alcoholic hepatitis and possible inflammatory bowel disease. C. difficile is negative. Patient denies any localized abdominal pain. 03/31/2020 Patient states he feels perhaps slightly better versus the same today. Per my discussion with nursing, patient's mother has voiced that the patient has a flat odd affect ever since he began using methamphetamines 5 years ago. Patient states he quit using drugs 4 years ago and has not been using any illicit drugs for the past 4 years. Patient's INR is notably elevated at 3 we will start the patient on vitamin K. Patient is on a bowel prep today with plans for colonoscopy and EGD tomorrow. GI following. 04/01/2020 Patient seems to be clinically doing a bit better today versus the same. White blood cell count and platelets are higher and hemoglobin is lower. Blood cultures remain negative and stool culture is not growing any pathogens. Discussed the case with GI and will recheck INR to see if coagulopathy has improved with oral vitamin K. EGD and colonoscopy will reportedly be done today. We will follow up on these results. Patient has no new complaints today. Reason For Visit: ACUTE COLITIS Physical Exam Vital Signs: Temp Pulse Resp BP Pulse Ox 97.3 F 73 18 150/70 H 94 04/01/20 16:08 04/01/20 16:08 04/01/20 16:08 04/01/20 16:08 04/01/20 16:08 Intake & Output 03/31/20 04/01/20 04/02/20 06:59 06:59 06:59 Intake Total 1999 1360 668 Output Total 150 Balance 1850 1360 668 Weight 72 kg 74.1 kg Exam: General appearance: PRESENT: no acute distress, ill-appearing white male, states he has no new complaints today Head exam: PRESENT: atraumatic, normocephalic Eye exam: PRESENT: conjunctiva pink. scleral icterus Mouth exam: PRESENT: moist Respiratory exam: PRESENT: clear to auscultation maddy. ABSENT: rales, rhonchi, wheezes Cardiovascular exam: PRESENT: RRR. ABSENT: diastolic murmur, rubs, systolic murmur GI/Abdominal exam: PRESENT: normal bowel sounds, soft, very mild diffuse tenderness. ABSENT: distended, guarding, mass, organolmegaly, rebound Neurological exam: PRESENT: alert, awake, oriented to person, oriented to place, oriented to time Psychiatric exam: PRESENT: Flat odd affect, normal mood Skin exam: PRESENT: dry, intact, warm Results Laboratory Results: 04/01/20 05:07 04/01/20 05:07 04/01/20 04/01/20 04/01/20 05:07 05:07 11:01 WBC 16.9 H RBC 2.36 L Hgb 8.9 L Hct 24.9 L MCV 106 H MCH 37.7 H MCHC 35.6 RDW 14.0 Plt Count 111 L Seg Neutrophils % 74.1 Sodium 135.6 L Potassium 3.8 Chloride 103 Carbon Dioxide 27 Anion Gap 6 BUN 14 Creatinine 0.73 Est GFR ( Amer) > 60 Glucose 114 H Calcium 8.7 Blood Type O NEGATIVE 03/29/20 21:16 Stool - Stool - Final 03/29/20 21:16 Stool - Stool Stool Culture - Final NO SALMONELLA, SHIGELLA, CAMPYLOBACTER, OR E.COLI 0157 RECOVERED. NEGATIVE FOR SHIGA TOXINS 1&2. Impressions: Abdomen/Pelvis CT 03/29/20 18:30 IMPRESSION: 1. Diffuse thickening of the colonic wall with no definitive involvement of the terminal ileum. This may represent Crohn's or ulcerative colitis. There is diffuse mesenteric adenopathy most likely reactive. 2. Pericholecystic edema. There is perihepatic fluid. Correlation with ultrasound is recommended. 3. Hepatosplenomegaly. Hepatic steatosis. 4. Small amount of free fluid in the right lower quadrant and pelvis. Abdomen Ultrasound 03/29/20 19:36 IMPRESSION: Echogenic liver which is coarsened in echotexture, suggestive of diffuse hepatocellular disease such as hepatic steatosis. Superimposed bidirectional flow within the portal vein with poorly assessed color Doppler. However, the portal vein appeared patent on the recent CT. As such, the bidirectional flow within the portal vein is potentially related to portal hypertension. Isolated gallbladder wall thickening, nonspecific. This could be related to underlying chronic liver disease. Suspect gallbladder sludge. Mild right hydronephrosis. Small amount of perihepatic ascites. copyright 2010 [employer]- All Rights Reserved Chest X-Ray 03/29/20 22:30 IMPRESSION: No acute disease. copyright 2011 [employer]- All Rights Reserved Abdomen MRI 03/30/20 00:00 IMPRESSION: Technical limitations. No stones or common bile duct abnormality. Assessment and Plan - Diagnosis (1) Alcoholic hepatitis with ascites Is this a current diagnosis for this admission?: Yes (2) Alcohol dependence Is this a current diagnosis for this admission?: Yes (3) Acute colitis Is this a current diagnosis for this admission?: Yes (4) Alcoholic gastritis Qualifiers: Chronicity: acute Gastritis bleeding: presence of bleeding unspecified Qualified Code(s): K29.20 - Alcoholic gastritis without bleeding Is this a current diagnosis for this admission?: Yes (5) Elevated bilirubin Is this a current diagnosis for this admission?: Yes (6) Hypokalemia Is this a current diagnosis for this admission?: Yes (7) Hyponatremia Is this a current diagnosis for this admission?: Yes (8) Nausea & vomiting Is this a current diagnosis for this admission?: Yes (9) Tobacco dependence Is this a current diagnosis for this admission?: Yes - Plan Summary Summary: (1) Acute colitis Is this a current diagnosis for this admission?: Yes Plan: Per Previous Physician: "Patient presents with 2 weeks duration of blood-streaked diarrhea CT abdomen showed diffuse thickening of colonic wall no involvement of the terminal ileum and it diffuse mesenteric lymphadenopathy, likely reactive Inflammatory bowel disease is a possible cause vs infectious etiology C. difficile was negative Continue Zosyn 3.375 gm IV every 6 hourly Zofran for nausea and vomiting Continue supportive care" GI consulted: Planning EGD and colonoscopy 04/01 Infectious versus inflammatory Steroids started, methylprednisolone which will need to continue for total 28 days Continue antibiotics Stool culture not growing any invasive pathogens Ammonia elevated, started on rifaximin only as patient has been already having diarrhea and lactulose would worsen this (2) Alcoholic gastritis Qualifiers: Chronicity: acute Gastritis bleeding: presence of bleeding unspecified Qualified Code(s): K29.20 - Alcoholic gastritis without bleeding Is this a current diagnosis for this admission?: Yes Plan: Per Previous Physician: "Patient reports epigastric pain with nausea and vomiting Mildly elevated lipase likely to be due to gastritis CT abdomen showed no sign of pancreatic inflammation or peripancreatic fluid collection Will keep him n.p.o. for now, and advance when he tolerates Pantoprazole 40 mg IV twice daily Continue IV hydration" GI following (3) Alcoholic hepatitis with ascites Is this a current diagnosis for this admission?: Yes Plan: Per Previous Physician: "A chronic alcoholic, now presents with nausea, vomiting, jaundice. Has no encephalopathy Elevated liver enzymes with AST/ALT ratio 2:1 consistent with alcoholic hepatitis And also has elevated bilirubin, leukocytosis INR is elevated at 3.04, has hypoalbuminemia Requested hepatitis panel, GGT Has signs of portal hypertension on imaging Nausea [place] alcoholic hepatitis score of 9, maddery's score of 95 indicating patient would likely benefit from steroid Started on prednisone 40 mg daily Continue IV hydration and monitor CMP" MRCP did not show choledocholithiasis Steroids (4) Hyponatremia Is this a current diagnosis for this admission?: Yes Plan: Per Previous Physician: "Likely due to volume depletion from GI loss Serum sodium was 126 Ordered serum osmolality, urine osmolality and urine sodium Continue IV hydration with a goal of correction being 4 to 6 mEq in the first 24 hours" Trend BMP Resolved (5) Hypokalemia Is this a current diagnosis for this admission?: Yes Plan: Serum potassium 3.2 on presentation Potassium chloride was given Monitor electrolytes and replete as needed Resolved (6) Elevated bilirubin Is this a current diagnosis for this admission?: Yes Plan: Per Previous Physician: "Likely due to alcoholic hepatitis Liver enzymes consistent with alcoholic hepatitis CT abdomen showed hepatomegaly, ultrasound also showed diffuse hepatocellular disease(steatosis) with mild right perihepatic ascites and signs of portal hypertension Follow-up with hepatitis panel, GGT Continue monitoring CMP and treat underlying cause" (7) Leukocytosis Is this a current diagnosis for this admission?: Yes Plan: Likely due to inflammatory colitis and alcoholic hepatitis Negative blood culture Continue treating the underlying causes (8) Anemia Is this a current diagnosis for this admission?: Yes Plan: Per Previous Physician: "H&H on presentation was 9.7/27.4 with an MCV of 106 Likely due to GI blood loss and chronic alcoholism Will obtain folic acid and vitamin B12 levels Continue monitoring CBC and will transfuse if hemoglobin falls below 7.0" (9) Thrombocytopenia Is this a current diagnosis for this admission?: Yes Plan: Likely due to splenic sequestration from portal hypertension Will continue to monitor (10) Alcohol abuse and dependency Is this a current diagnosis for this admission?: Yes Plan: Per Previous Physician: "Patient's alcohol level was 79 on presentation He reports withdrawal symptoms in the past when trying to quit, but no history of seizure or DTs Started him on symptom triggered CIWA with as needed lorazepam" Reportedly drinks 8 or more beers per day for several years No signs of withdrawal (11) Tobacco dependence Is this a current diagnosis for this admission?: Yes Plan: Encouraged and counseled him on tobacco cessation Nicotine patch while inpatient - Time Time Spent with patient: 25-34 minutes Medications reviewed and adjusted accordingly: Yes Anticipated Discharge Disposition: Home, Self Care Anticipated Discharge Timeframe: within 72 hours - Inpatient Certification Based on my medical assessment, after consideration of the patient's comorbidities, presenting symptoms, or acuity I expect that the services needed warrant INPATIENT care.: Yes I certify that my determination is in accordance with my understanding of Medicare's requirements for reasonable and necessary INPATIENT services [42 CFR 412.3e].: Yes Medical Necessity: Significant Comorbidiites Make Outpatient Treatment Too Risky, Need Close Monitoring Due to Risk of Patient Decompensation, Need for Surgery, Risk of Complication if Not Cared For in Hospital, Risk of Diagnosis Which Will Require Inpatient Eval/Care/Monitoring
[2020-04-01 20:16] LABS: HEMATOCRIT 26.7 % (37.9-51.0); HEMOGLOBIN 9.4 g/dL (13.5-17.0); MEAN CORPUSCULAR HEMOGLOBIN 37.3 pg (27.0-33.4); MEAN CORPUSCULAR HGB CONC 35.1 g/dL (32.0-36.0); MEAN CORPUSCULAR VOLUME 106 fl (80-97); PLATELET COUNT 120 10^3/uL (150-450); RED BLOOD COUNT 2.51 10^6/uL (4.35-5.55); WHITE BLOOD COUNT 15.4 10^3/uL (4.0-10.5)
[2020-04-01 21:26] LABS: ABSOLUTE MONOCYTES # (MANUAL) 0.3 10^3/uL (0.1-1.4); BASOPHILS % (MANUAL) 0 % (0-2); EOSINOPHILS % (MANUAL) 0 % (0-6); LYMPHOCYTES % (MANUAL) 13 % (13-45); MONOCYTES % (MANUAL) 2 % (3-13); SEGMENTED NEUTROPHILS % (MAN) 85 % (42-78); TOTAL CELLS COUNTED 100
[2020-04-01 21:27] LABS: ANISOCYTOSIS SLIGHT; BURR CELLS 1+; OVALOCYTES SLIGHT; PLATELET COMMENT DECREASED; POIKILOCYTOSIS 1+; POLYCHROMASIA SLIGHT; SCHISTOCYTES SLIGHT; TEAR DROP CELLS SLIGHT; TOXIC GRANULATION 1+
[2020-04-02] MEDS: PIPERACILLIN SODIUM/TAZOBACTAM 3.375 GM in NORMAL SALINE 100 ML IV SCH ×4 (00:07→16:59)
[2020-04-02 06:22] LABS: ANION GAP 7 (5-19); BLOOD UREA NITROGEN 17 mg/dL (7-20); CALCIUM 9.1 mg/dL (8.4-10.2); CARBON DIOXIDE 27 mmol/L (22-30); CHLORIDE 104 mmol/L (98-107); GLUCOSE 104 mg/dL (75-110); POTASSIUM 3.4 mmol/L (3.6-5.0)
[2020-04-02] MEDS: THIAMINE HCL 100 MG TABLET PO SCH (09:50)
[2020-04-02] MEDS: PHYTONADIONE 5 MG TABLET PO SCH (09:50)
[2020-04-02] MEDS: FOLIC ACID 1 MG TABLET PO SCH (09:50)
[2020-04-02] MEDS: MULTIVITAMIN TABLET PO SCH (09:50)
[2020-04-02] MEDS: NICOTINE 14 MG/24 HR PATCH.TD24 TD SCH (09:51)
[2020-04-02] MEDS: RIFAXIMIN 550 MG TABLET PO SCH ×2 (09:51→16:59)
[2020-04-02] MEDS: PANTOPRAZOLE SODIUM 40 MG VIAL IV SCH ×2 (09:51→21:55)
[2020-04-02] MEDS: PREDNISOLONE SOD PHOS 15 MG/5 ML ORAL SYRING PO SCH (09:52)
[2020-04-02] MEDS: RINGERS SOLUTION,LACTATED 1,000 ML IV PRN (11:49)
[2020-04-02 12:44] LABS: ALBUMIN 2.5 g/dL (3.5-5.0); ALKALINE PHOSPHATASE 225 U/L (38-126); ASPARTATE AMINO TRANSFERASE 123 U/L (17-59); BILIRUBIN,DIRECT 1.9 mg/dL (0.0-0.4); BILIRUBIN,TOTAL 6.5 mg/dL (0.2-1.3); TOTAL PROTEIN 5.9 g/dL (6.3-8.2)
[2020-04-02 12:52] LABS: INTERNATIONAL RATION (INR) 1.98; PROTHROMBIN TIME 22.6 SEC (11.4-15.4)
--- NOTE | 2020-04-02 14:10 | PDOC PROGRESS REPORT ---
Subjective Subjective:: Per Previous Physician: "VASU FELICIANO is a 25 year old male with no significant past medical history who presents with 2 to 3 weeks duration of nausea, vomiting and diarrhea. Patient reports that he has decreased appetite and whenever he tries to have a meal he throws up mostly ingested matter. Diarrhea is mostly watery but he also states that occasionally becomes mixed with bright red blood throughout his bowel movement. He also states that he has been having cough productive of blood-streaked sputum. Associated with this he also endorses a burning epigastric pain especially after having a meal or drinking water. Patient also states that he has cramping lower abdominal pain, fever, chills, pruritus and pleuritic chest pain. In the past 2 days he has been feeling dizzy when he gets up. His sister had bad cough and fever recently but he states that she tested negative for Covid 19. He drinks 8 cans of beer daily and states that in the past he has had tremors and excessive anxiety and agitation when trying to quit alcohol. He denies taking any [id number] or herbal medications. He also denied any recent travel." 03/30/2020 Patient mated overnight for suspected alcoholic hepatitis and liver failure, diarrhea, pancolitis. Bilirubin is significantly elevated. I ordered MRCP and consulted GI. We will check ammonia level as the patient is somewhat slow to respond to my questioning and is something of a flat affect. CRP mildly elevated and ESR within normal limits. Patient was started on steroids on admission for alcoholic hepatitis and possible inflammatory bowel disease. C. difficile is negative. Patient denies any localized abdominal pain. 03/31/2020 Patient states he feels perhaps slightly better versus the same today. Per my discussion with nursing, patient's mother has voiced that the patient has a flat odd affect ever since he began using methamphetamines 5 years ago. Patient states he quit using drugs 4 years ago and has not been using any illicit drugs for the past 4 years. Patient's INR is notably elevated at 3 we will start the patient on vitamin K. Patient is on a bowel prep today with plans for colonoscopy and EGD tomorrow. GI following. 04/01/2020 Patient seems to be clinically doing a bit better today versus the same. White blood cell count and platelets are higher and hemoglobin is lower. Blood cultures remain negative and stool culture is not growing any pathogens. Discussed the case with GI and will recheck INR to see if coagulopathy has improved with oral vitamin K. EGD and colonoscopy will reportedly be done today. We will follow up on these results. Patient has no new complaints today. 04/02/2020 Patient seems to be doing her better today. His mentation has not significantly improved since starting rifaximin given that his ammonia was only slightly elevated and the fact that his mother states his current mentation has been his baseline for the past few years since stopping meth abuse, I do not believe it would be worth the cost of this medication to continue to discharge. I am concerned that his diarrhea is related to pancreatic insufficiency given his longtime history of alcohol abuse. His lipase was elevated on admission at 522.3. I will check stool pancreatic elastase and start him on Creon twice daily with meals. Patient has not been here for 7 days on steroids but I did calculate a preliminary Saima score based on the data that we have and he seems to have a good 6-month life expectancy given his response to steroids thus far. We will plan to continue prednisolone for 28 days and finish therapy with a 16- day prednisolone taper by decreasing the dose by 10 mg per day every four days until a dose of 10 mg per day is reached, at which point we will decrease it by 5 mg per day every three days. Patient could potentially be discharged tomorrow. I had a long discussion with the patient and his father in the room today and answered many questions. Also under great detail explaining to him the pathophysiology behind the patient's liver failure. He must stop drinking alcohol permanently if he is to have any meaningful recovery if he is to maintain a reasonably long life expectancy. Reason For Visit: ACUTE COLITIS Physical Exam Vital Signs: Temp Pulse Resp BP Pulse Ox 97.9 F 69 16 104/43 L 99 04/02/20 11:16 04/02/20 11:16 04/02/20 11:16 04/02/20 11:16 04/02/20 11:16 Intake & Output 04/01/20 04/02/20 04/03/20 06:59 06:59 06:59 Intake Total 2360 1778 221 Output Total 0 Balance 2360 1778 221 Weight 74.1 kg 74.1 kg Results Laboratory Results: 04/01/20 19:30 04/02/20 05:09 04/01/20 04/01/20 04/02/20 11:01 19:30 05:09 WBC 15.4 H RBC 2.51 L Hgb 9.4 L Hct 26.7 L MCV 106 H MCH 37.3 H MCHC 35.1 RDW 14.0 Plt Count 120 L Seg Neutrophils % Not Reportable Sodium 137.7 Potassium 3.4 L Chloride 104 Carbon Dioxide 27 Anion Gap 7 BUN 17 Creatinine 0.78 Est GFR ( Amer) > 60 Glucose 104 Calcium 9.1 Total Bilirubin AST Alkaline Phosphatase Total Protein Albumin Blood Type O NEGATIVE 04/02/20 11:45 WBC RBC Hgb Hct MCV MCH MCHC RDW Plt Count Seg Neutrophils % Sodium Potassium Chloride Carbon Dioxide Anion Gap BUN Creatinine Est GFR ( Amer) Glucose Calcium Total Bilirubin 6.5 H AST 123 H Alkaline Phosphatase 225 H Total Protein 5.9 L Albumin 2.5 L Blood Type Impressions: Abdomen/Pelvis CT 03/29/20 18:30 IMPRESSION: 1. Diffuse thickening of the colonic wall with no definitive involvement of the terminal ileum. This may represent Crohn's or ulcerative colitis. There is diffuse mesenteric adenopathy most likely reactive. 2. Pericholecystic edema. There is perihepatic fluid. Correlation with ultrasound is recommended. 3. Hepatosplenomegaly. Hepatic steatosis. 4. Small amount of free fluid in the right lower quadrant and pelvis. Abdomen Ultrasound 03/29/20 19:36 IMPRESSION: Echogenic liver which is coarsened in echotexture, suggestive of diffuse hepatocellular disease such as hepatic steatosis. Superimposed bidirectional flow within the portal vein with poorly assessed color Doppler. However, the portal vein appeared patent on the recent CT. As such, the bidirectional flow within the portal vein is potentially related to portal hypertension. Isolated gallbladder wall thickening, nonspecific. This could be related to underlying chronic liver disease. Suspect gallbladder sludge. Mild right hydronephrosis. Small amount of perihepatic ascites. copyright 2011 [employer]- All Rights Reserved Chest X-Ray 03/29/20 22:30 IMPRESSION: No acute disease. copyright 2011 [employer]- All Rights Reserved Abdomen MRI 03/30/20 00:00 IMPRESSION: Technical limitations. No stones or common bile duct abnormality. Assessment and Plan - Diagnosis (1) Alcoholic hepatitis with ascites Is this a current diagnosis for this admission?: Yes (2) Alcohol dependence Is this a current diagnosis for this admission?: Yes (3) Acute colitis Is this a current diagnosis for this admission?: Yes (4) Alcoholic gastritis Qualifiers: Chronicity: acute Gastritis bleeding: presence of bleeding unspecified Qualified Code(s): K29.20 - Alcoholic gastritis without bleeding Is this a current diagnosis for this admission?: Yes (5) Elevated bilirubin Is this a current diagnosis for this admission?: Yes (6) Hypokalemia Is this a current diagnosis for this admission?: Yes (7) Hyponatremia Is this a current diagnosis for this admission?: Yes (8) Nausea & vomiting Is this a current diagnosis for this admission?: Yes (9) Tobacco dependence Is this a current diagnosis for this admission?: Yes - Plan Summary Summary: (1) ruled out acute colitis Is this a current diagnosis for this admission?: Yes Plan: Per Previous Physician: "Patient presents with 2 weeks duration of blood-streaked diarrhea CT abdomen showed diffuse thickening of colonic wall no involvement of the terminal ileum and it diffuse mesenteric lymphadenopathy, likely reactive Inflammatory bowel disease is a possible cause vs infectious etiology C. difficile was negative Continue Zosyn 3.375 gm IV every 6 hourly Zofran for nausea and vomiting Continue supportive care" GI consulted: EGD and colonoscopy 04/01 did not show any specific abnormalities, no colitis visualized Infectious versus inflammatory Steroids started, methylprednisolone which will need to continue for total 28 days Continue antibiotics Stool culture not growing any invasive pathogens Ammonia elevated, started on rifaximin only as patient has been already having diarrhea and lactulose would worsen this (2) Alcoholic gastritis Qualifiers: Chronicity: acute Gastritis bleeding: presence of bleeding unspecified Qualified Code(s): K29.20 - Alcoholic gastritis without bleeding Is this a current diagnosis for this admission?: Yes Plan: Per Previous Physician: "Patient reports epigastric pain with nausea and vomiting Mildly elevated lipase likely to be due to gastritis CT abdomen showed no sign of pancreatic inflammation or peripancreatic fluid collection Will keep him n.p.o. for now, and advance when he tolerates Pantoprazole 40 mg IV twice daily Continue IV hydration" GI following (3) Alcoholic hepatitis with ascites Is this a current diagnosis for this admission?: Yes Plan: Per Previous Physician: "A chronic alcoholic, now presents with nausea, vomiting, jaundice. Has no ence phalopathy Elevated liver enzymes with AST/ALT ratio 2:1 consistent with alcoholic hepatitis And also has elevated bilirubin, leukocytosis INR is elevated at 3.04, has hypoalbuminemia Requested hepatitis panel, GGT Has signs of portal hypertension on imaging Nausea [place] alcoholic hepatitis score of 9, maddery's score of 95 indicating patient would likely benefit from steroid Started on prednisone 40 mg daily Continue IV hydration and monitor CMP" MRCP did not show choledocholithiasis Steroids -Continue for 28 days, and finish therapy with a 16-day prednisolone taper (decrease the dose by 10 mg per day every four days until a dose of 10 mg per day is reached, at which point decrease it by 5 mg per day every three days) (4) Hyponatremia Is this a current diagnosis for this admission?: Yes Plan: Per Previous Physician: "Likely due to volume depletion from GI loss Serum sodium was 126 Ordered serum osmolality, urine osmolality and urine sodium Continue IV hydration with a goal of correction being 4 to 6 mEq in the first 24 hours" Trend BMP Resolved (5) Hypokalemia Is this a current diagnosis for this admission?: Yes Plan: Serum potassium 3.2 on presentation Potassium chloride was given Monitor electrolytes and replete as needed Resolved (6) Elevated bilirubin Is this a current diagnosis for this admission?: Yes Plan: Per Previous Physician: "Likely due to alcoholic hepatitis Liver enzymes consistent with alcoholic hepatitis CT abdomen showed hepatomegaly, ultrasound also showed diffuse hepatocellular disease(steatosis) with mild right perihepatic ascites and signs of portal hypertension Follow-up with hepatitis panel, GGT Continue monitoring CMP and treat underlying cause" (7) Leukocytosis Is this a current diagnosis for this admission?: Yes Plan: Likely due to inflammatory colitis and alcoholic hepatitis Negative blood culture Continue treating the underlying causes (8) Anemia Is this a current diagnosis for this admission?: Yes Plan: Per Previous Physician: "H&H on presentation was 9.7/27.4 with an MCV of 106 Likely due to GI blood loss and chronic alcoholism Will obtain folic acid and vitamin B12 levels Continue monitoring CBC and will transfuse if hemoglobin falls below 7.0" (9) Thrombocytopenia Is this a current diagnosis for this admission?: Yes Plan: Likely due to splenic sequestration from portal hypertension Will continue to monitor (10) Alcohol abuse and dependency Is this a current diagnosis for this admission?: Yes Plan: Per Previous Physician: "Patient's alcohol level was 79 on presentation He reports withdrawal symptoms in the past when trying to quit, but no history of seizure or DTs Started him on symptom triggered CIWA with as needed lorazepam" Reportedly drinks 8 or more beers per day for several years No signs of withdrawal (11) Tobacco dependence Is this a current diagnosis for this admission?: Yes Plan: Encouraged and counseled him on tobacco cessation Nicotine patch while inpatient - Time Time Spent with patient: 25-34 minutes Medications reviewed and adjusted accordingly: Yes Anticipated Discharge Disposition: Home, Self Care Anticipated Discharge Timeframe: within 48 hours - Inpatient Certification Based on my medical assessment, after consideration of the patient's comorbidities, presenting symptoms, or acuity I expect that the services needed warrant INPATIENT care.: Yes I certify that my determination is in accordance with my understanding of Medicare's requirements for reasonable and necessary INPATIENT services [42 CFR 412.3e].: Yes Medical Necessity: Significant Comorbidiites Make Outpatient Treatment Too Risky, Need Close Monitoring Due to Risk of Patient Decompensation, Risk of Complication if Not Cared For in Hospital, Risk of Diagnosis Which Will Require Inpatient Eval/Care/Monitoring
[2020-04-02] MEDS: LIPASE/PROTEASE/AMYLASE 1 CAP CAPSULE.DR PO SCH (16:55)
[2020-04-03] MEDS: PIPERACILLIN SODIUM/TAZOBACTAM 3.375 GM in NORMAL SALINE 100 ML IV SCH ×5 (00:11→23:41)
[2020-04-03] MEDS: RINGERS SOLUTION,LACTATED 1,000 ML IV PRN ×3 (00:11→21:18)
[2020-04-03 05:14] LABS: INTERNATIONAL RATION (INR) 2.22; PROTHROMBIN TIME 24.6 SEC (11.4-15.4)
[2020-04-03 05:17] LABS: ALBUMIN 2.2 g/dL (3.5-5.0); ALKALINE PHOSPHATASE 249 U/L (38-126); ANION GAP 5 (5-19); ASPARTATE AMINO TRANSFERASE 97 U/L (17-59); BILIRUBIN,DIRECT 1.3 mg/dL (0.0-0.4); BILIRUBIN,TOTAL 4.6 mg/dL (0.2-1.3); BLOOD UREA NITROGEN 15 mg/dL (7-20); CALCIUM 8.5 mg/dL (8.4-10.2); CARBON DIOXIDE 26 mmol/L (22-30); CHLORIDE 107 mmol/L (98-107); GLUCOSE 119 mg/dL (75-110); POTASSIUM 3.2 mmol/L (3.6-5.0); TOTAL PROTEIN 5.5 g/dL (6.3-8.2)
[2020-04-03 05:21] LABS: ABSOLUTE LYMPHOCYTES (AUTO) 2.6 10^3/uL (0.5-4.7); ABSOLUTE MONOCYTES (AUTO) 1.2 10^3/uL (0.1-1.4); ABSOLUTE NEUT (AUTO) 7.1 10^3/uL (1.7-8.2); BASOPHILS % (AUTO) 0.4 % (0-2); EOSINOPHILS % (AUTO) 0.1 % (0-6); HEMATOCRIT 22.1 % (37.9-51.0); LYMPHOCYTES % (AUTO) 23.7 % (13-45); MEAN CORPUSCULAR HEMOGLOBIN 37.4 pg (27.0-33.4); MEAN CORPUSCULAR HGB CONC 35.5 g/dL (32.0-36.0); MEAN CORPUSCULAR VOLUME 105 fl (80-97); PLATELET COUNT 110 10^3/uL (150-450); RED BLOOD COUNT 2.09 10^6/uL (4.35-5.55); RED CELL DISTRIBUTION WIDTH 14.2 % (11.5-14.0); SEGMENTED NEUTROPHILS % (AUTO) 64.8 % (42-78); TOTAL CELLS COUNTED % (AUTO) 100 %; WHITE BLOOD COUNT 10.9 10^3/uL (4.0-10.5)
[2020-04-03 05:29] LABS: HEMOGLOBIN 7.8 g/dL (13.5-17.0)
[2020-04-03 09:48] LABS: IRON(TIBC) 95.1 ug/dL (49-181)
[2020-04-03] MEDS: NICOTINE 14 MG/24 HR PATCH.TD24 TD SCH (09:48)
[2020-04-03] MEDS: RIFAXIMIN 550 MG TABLET PO SCH ×2 (09:49→17:35)
[2020-04-03] MEDS: PHYTONADIONE 5 MG TABLET PO SCH (09:49)
[2020-04-03] MEDS: THIAMINE HCL 100 MG TABLET PO SCH (09:49)
[2020-04-03] MEDS: PREDNISOLONE SOD PHOS 15 MG/5 ML ORAL SYRING PO SCH (09:49)
[2020-04-03] MEDS: LIPASE/PROTEASE/AMYLASE 1 CAP CAPSULE.DR PO SCH ×2 (09:49→15:36)
[2020-04-03] MEDS: FOLIC ACID 1 MG TABLET PO SCH (09:49)
[2020-04-03] MEDS: MULTIVITAMIN TABLET PO SCH (09:50)
[2020-04-03] MEDS: PANTOPRAZOLE SODIUM 40 MG VIAL IV SCH ×2 (09:50→21:18)
[2020-04-03] MEDS: MAGNESIUM SULFATE/D5W 1 GM/100 ML RTUPB IV SCH ×2 (10:00→11:06)
[2020-04-03 10:09] LABS: ABSOLUTE LYMPHOCYTES (AUTO) 3.7 10^3/uL (0.5-4.7); ABSOLUTE MONOCYTES (AUTO) 0.7 10^3/uL (0.1-1.4); ABSOLUTE NEUT (AUTO) 7.3 10^3/uL (1.7-8.2); ABSOLUTE RETICS # 0.035 10^6/uL (0.028-0.122); BASOPHILS % (AUTO) 0.3 % (0-2); EOSINOPHILS % (AUTO) 0.1 % (0-6); HEMATOCRIT 25.9 % (37.9-51.0); HEMOGLOBIN 9.3 g/dL (13.5-17.0); LYMPHOCYTES % (AUTO) 31.4 % (13-45); MEAN CORPUSCULAR HEMOGLOBIN 38.3 pg (27.0-33.4); MEAN CORPUSCULAR HGB CONC 35.8 g/dL (32.0-36.0); MEAN CORPUSCULAR VOLUME 107 fl (80-97); MONOCYTES % (AUTO) 5.7 % (3-13); PLATELET COUNT 128 10^3/uL (150-450); RED BLOOD COUNT 2.42 10^6/uL (4.35-5.55); RED CELL DISTRIBUTION WIDTH 14.6 % (11.5-14.0); RETICULOCYTE COUNT (AUTO) 1.46 % (0.66-2.85); SEGMENTED NEUTROPHILS % (AUTO) 62.5 % (42-78); TOTAL CELLS COUNTED % (AUTO) 100 %; WHITE BLOOD COUNT 11.7 10^3/uL (4.0-10.5)
--- NOTE | 2020-04-03 11:08 | PDOC PROGRESS REPORT ---
Subjective Subjective:: Per Previous Physician: "VASU FELICIANO is a 25 year old male with no significant past medical history who presents with 2 to 3 weeks duration of nausea, vomiting and diarrhea. Patient reports that he has decreased appetite and whenever he tries to have a meal he throws up mostly ingested matter. Diarrhea is mostly watery but he also states that occasionally becomes mixed with bright red blood throughout his bowel movement. He also states that he has been having cough productive of blood-streaked sputum. Associated with this he also endorses a burning epigastric pain especially after having a meal or drinking water. Patient also states that he has cramping lower abdominal pain, fever, chills, pruritus and pleuritic chest pain. In the past 2 days he has been feeling dizzy when he gets up. His sister had bad cough and fever recently but he states that she tested negative for Covid 19. He drinks 8 cans of beer daily and states that in the past he has had tremors and excessive anxiety and agitation when trying to quit alcohol. He denies taking any [id number] or herbal medications. He also denied any recent travel." 03/30/2020 Patient mated overnight for suspected alcoholic hepatitis and liver failure, diarrhea, pancolitis. Bilirubin is significantly elevated. I ordered MRCP and consulted GI. We will check ammonia level as the patient is somewhat slow to respond to my questioning and is something of a flat affect. CRP mildly elevated and ESR within normal limits. Patient was started on steroids on admission for alcoholic hepatitis and possible inflammatory bowel disease. C. difficile is negative. Patient denies any localized abdominal pain. 03/31/2020 Patient states he feels perhaps slightly better versus the same today. Per my discussion with nursing, patient's mother has voiced that the patient has a flat odd affect ever since he began using methamphetamines 5 years ago. Patient states he quit using drugs 4 years ago and has not been using any illicit drugs for the past 4 years. Patient's INR is notably elevated at 3 we will start the patient on vitamin K. Patient is on a bowel prep today with plans for colonoscopy and EGD tomorrow. GI following. 04/01/2020 Patient seems to be clinically doing a bit better today versus the same. White blood cell count and platelets are higher and hemoglobin is lower. Blood cultures remain negative and stool culture is not growing any pathogens. Discussed the case with GI and will recheck INR to see if coagulopathy has improved with oral vitamin K. EGD and colonoscopy will reportedly be done today. We will follow up on these results. Patient has no new complaints today. 04/02/2020 Patient seems to be doing her better today. His mentation has not significantly improved since starting rifaximin given that his ammonia was only slightly elevated and the fact that his mother states his current mentation has been his baseline for the past few years since stopping meth abuse, I do not believe it would be worth the cost of this medication to continue to discharge. I am concerned that his diarrhea is related to pancreatic insufficiency given his longtime history of alcohol abuse. His lipase was elevated on admission at 522.3. I will check stool pancreatic elastase and start him on Creon twice daily with meals. Patient has not been here for 7 days on steroids but I did calculate a preliminary Saima score based on the data that we have and he seems to have a good 6-month life expectancy given his response to steroids thus far. We will plan to continue prednisolone for 28 days and finish therapy with a 16- day prednisolone taper by decreasing the dose by 10 mg per day every four days until a dose of 10 mg per day is reached, at which point we will decrease it by 5 mg per day every three days. Patient could potentially be discharged tomorrow. I had a long discussion with the patient and his father in the room today and answered many questions. Also I went into great detail explaining to him the pathophysiology behind the patient's liver failure. He must stop drinking alcohol permanently if he is to have any meaningful recovery if he is to maintain a reasonably long life expectancy. 04/03/2020 Patient seems to be doing at least as well as yesterday. Hemoglobin is notably lower today and will check iron studies on him. Quite possible he is iron deficient from malabsorption due to pancreatic insufficiency. If his iron is low, we will give him Venofer and start him on oral iron along with his Creon to help absorb it. Upper and lower endoscopy did not reveal any significant ble eding sources however the patient states he has noted having what he believes is hemorrhoids in the past. He had some rectal bleeding overnight on toilet paper. We will repeat his CBC to confirm hemoglobin is actually dropped. Potassium is low we will replace this. Start him on a multivitamin. Echocardiogram is still pending. Possible he can be discharged tomorrow if all goes well. Reason For Visit: ACUTE COLITIS Physical Exam Vital Signs: Temp Pulse Resp BP Pulse Ox 97.6 F 72 20 124/66 100 04/03/20 10:00 04/03/20 03:37 04/03/20 03:37 04/03/20 03:37 04/03/20 03:37 Intake & Output 04/02/20 04/03/20 04/04/20 06:59 06:59 06:59 Intake Total 1778 2885 Output Total 0 0 Balance 1778 2885 Weight 74.1 kg 82.2 kg Exam: General appearance: PRESENT: no acute distress, ill-appearing white male, states he had some mild rectal bleeding on toilet paper overnight Head exam: PRESENT: atraumatic, normocephalic Eye exam: PRESENT: conjunctiva pink. scleral icterus Mouth exam: PRESENT: moist Respiratory exam: PRESENT: clear to auscultation maddy. ABSENT: rales, rhonchi, wheezes Cardiovascular exam: PRESENT: RRR. ABSENT: diastolic murmur, rubs, systolic murmur GI/Abdominal exam: PRESENT: normal bowel sounds, soft, very mild diffuse tenderness. ABSENT: distended, guarding, mass, organolmegaly, rebound Neurological exam: PRESENT: alert, awake, oriented to person, oriented to place, oriented to time Psychiatric exam: PRESENT: Flat odd affect, normal mood Skin exam: PRESENT: dry, intact, warm Results Laboratory Results: 04/03/20 08:50 04/03/20 04:44 04/02/20 04/03/20 04/03/20 11:45 04:44 04:44 WBC 10.9 H RBC 2.09 L Hgb 7.8 L Hct 22.1 L MCV 105 H MCH 37.4 H MCHC 35.5 RDW 14.2 H Plt Count 110 L Seg Neutrophils % 64.8 Retic Count (auto) Sodium 137.5 Potassium 3.2 L Chloride 107 Carbon Dioxide 26 Anion Gap 5 BUN 15 Creatinine 0.73 Est GFR ( Amer) > 60 Glucose 119 H Calcium 8.5 Iron TIBC % Saturation Ferritin Total Bilirubin 6.5 H 4.6 H AST 123 H 97 H Alkaline Phosphatase 225 H 249 H Total Protein 5.9 L 5.5 L Albumin 2.5 L 2.2 L 04/03/20 04/03/20 08:50 08:50 WBC 11.7 H RBC 2.42 L Hgb 9.3 L Hct 25.9 L MCV 107 H MCH 38.3 H MCHC 35.8 RDW 14.6 H Plt Count 128 L Seg Neutrophils % 62.5 Retic Count (auto) 1.46 Sodium Potassium Chloride Carbon Dioxide Anion Gap BUN Creatinine Est GFR ( Amer) Glucose Calcium Iron 95.1 TIBC 160 L % Saturation 59 Ferritin 559.00 H Total Bilirubin AST Alkaline Phosphatase Total Protein Albumin Impressions: Abdomen/Pelvis CT 03/29/20 18:30 IMPRESSION: 1. Diffuse thickening of the colonic wall with no definitive involvement of the terminal ileum. This may represent Crohn's or ulcerative colitis. There is diffuse mesenteric adenopathy most likely reactive. 2. Pericholecystic edema. There is perihepatic fluid. Correlation with ultrasound is recommended. 3. Hepatosplenomegaly. Hepatic steatosis. 4. Small amount of free fluid in the right lower quadrant and pelvis. Abdomen Ultrasound 03/29/20 19:36 IMPRESSION: Echogenic liver which is coarsened in echotexture, suggestive of diffuse hepatocellular disease such as hepatic steatosis. Superimposed bidirectional flow within the portal vein with poorly assessed color Doppler. However, the portal vein appeared patent on the recent CT. As such, the bidirectional flow within the portal vein is potentially related to portal hypertension. Isolated gallbladder wall thickening, nonspecific. This could be related to underlying chronic liver disease. Suspect gallbladder sludge. Mild right hydronephrosis. Small amount of perihepatic ascites. copyright 2010 [employer]- All Rights Reserved Chest X-Ray 03/29/20 22:30 IMPRESSION: No acute disease. copyright 2011 [employer]- All Rights Reserved Abdomen MRI 03/30/20 00:00 IMPRESSION: Technical limitations. No stones or common bile duct abnormality. Assessment and Plan - Diagnosis (1) Alcoholic hepatitis with ascites Is this a current diagnosis for this admission?: Yes (2) Alcohol dependence Is this a current diagnosis for this admission?: Yes (3) Acute colitis Is this a current diagnosis for this admission?: Yes (4) Alcoholic gastritis Qualifiers: Chronicity: acute Gastritis bleeding: presence of bleeding unspecified Qualified Code(s): K29.20 - Alcoholic gastritis without bleeding Is this a current diagnosis for this admission?: Yes (5) Elevated bilirubin Is this a current diagnosis for this admission?: Yes (6) Hypokalemia Is this a current diagnosis for this admission?: Yes (7) Hyponatremia Is this a current diagnosis for this admission?: Yes (8) Nausea & vomiting Is this a current diagnosis for this admission?: Yes (9) Tobacco dependence Is this a current diagnosis for this admission?: Yes (10) Pancreatic insufficiency Is this a current diagnosis for this admission?: Yes - Plan Summary Summary: (1) ruled out acute colitis Is this a current diagnosis for this admission?: Yes Plan: Per Previous Physician: "Patient presents with 2 weeks duration of blood-streaked diarrhea CT abdomen showed diffuse thickening of colonic wall no involvement of the terminal ileum and it diffuse mesenteric lymphadenopathy, likely reactive Inflammatory bowel disease is a possible cause vs infectious etiology C. difficile was negative Continue Zosyn 3.375 gm IV every 6 hourly Zofran for nausea and vomiting Continue supportive care" GI consulted: EGD and colonoscopy 04/01 did not show any specific abnormalities, no colitis visualized Infectious versus inflammatory Steroids started, methylprednisolone which will need to continue for total 28 days Continue antibiotics Stool culture not growing any invasive pathogens Ammonia elevated, started on rifaximin only as patient has been already having diarrhea and lactulose would worsen this (2) Alcoholic gastritis Qualifiers: Chronicity: acute Gastritis bleeding: presence of bleeding unspecified Qualified Code(s): K29.20 - Alcoholic gastritis without bleeding Is this a current diagnosis for this admission?: Yes Plan: Per Previous Physician: "Patient reports epigastric pain with nausea and vomiting Mildly elevated lipase likely to be due to gastritis CT abdomen showed no sign of pancreatic inflammation or peripancreatic fluid collection Will keep him n.p.o. for now, and advance when he tolerates Pantoprazole 40 mg IV twice daily Continue IV hydration" GI following (3) Alcoholic hepatitis with ascites Is this a current diagnosis for this admission?: Yes Plan: Per Previous Physician: "A chronic alcoholic, now presents with nausea, vomiting, jaundice. Has no encephalopathy Elevated liver enzymes with AST/ALT ratio 2:1 consistent with alcoholic hepatitis And also has elevated bilirubin, leukocytosis INR is elevated at 3.04, has hypoalbuminemia Requested hepatitis panel, GGT Has signs of portal hypertension on imaging Nausea [place] alcoholic hepatitis score of 9, maddery's score of 95 indicating patient would likely benefit from steroid Started on prednisone 40 mg daily Continue IV hydration and monitor CMP" MRCP did not show choledocholithiasis Steroids -Continue for 28 days, and finish therapy with a 16-day prednisolone taper ( decrease the dose by 10 mg per day every four days until a dose of 10 mg per day is reached, at which point decrease it by 5 mg per day every three days) -Lille Score: 0.021 - good, confers an 85% 6 month survival prognosis (4) Hyponatremia Is this a current diagnosis for this admission?: Yes Plan: Per Previous Physician: "Likely due to volume depletion from GI loss Serum sodium was 126 Ordered serum osmolality, urine osmolality and urine sodium Continue IV hydration with a goal of correction being 4 to 6 mEq in the first 24 hours" Trend BMP Resolved (5) Hypokalemia Is this a current diagnosis for this admission?: Yes Plan: Serum potassium 3.2 on presentation Potassium chloride was given Monitor electrolytes and replete as needed Resolved -repleting (6) Elevated bilirubin Is this a current diagnosis for this admission?: Yes Plan: Per Previous Physician: "Likely due to alcoholic hepatitis Liver enzymes consistent with alcoholic hepatitis CT abdomen showed hepatomegaly, ultrasound also showed diffuse hepatocellular disease(steatosis) with mild right perihepatic ascites and signs of portal hypertension Follow-up with hepatitis panel, GGT Continue monitoring CMP and treat underlying cause" (7) Leukocytosis Is this a current diagnosis for this admission?: Yes Plan: Likely due to inflammatory colitis and alcoholic hepatitis Negative blood culture Continue treating the underlying causes (8) Anemia Is this a current diagnosis for this admission?: Yes Plan: Per Previous Physician: "H&H on presentation was 9.7/27.4 with an MCV of 106 Likely due to GI blood loss and chronic alcoholism Will obtain folic acid and vitamin B12 levels Continue monitoring CBC and will transfuse if hemoglobin falls below 7.0" (9) Thrombocytopenia Is this a current diagnosis for this admission?: Yes Plan: Likely due to splenic sequestration from portal hypertension Will continue to monitor (10) Alcohol abuse and dependency Is this a current diagnosis for this admission?: Yes Plan: Per Previous Physician: "Patient's alcohol level was 79 on presentation He reports withdrawal symptoms in the past when trying to quit, but no history of seizure or DTs Started him on symptom triggered CIWA with as needed lorazepam" Reportedly drinks 8 or more beers per day for several years No signs of withdrawal (11) Tobacco dependence Is this a current diagnosis for this admission?: Yes Plan: Encouraged and counseled him on tobacco cessation Nicotine patch while inpatient (12) Pancreatic insufficiency Suspect patient has malabsorption due to pancreatic insufficiency due to chronic alcohol abuse Started on Creon - Time Time Spent with patient: 25-34 minutes Medications reviewed and adjusted accordingly: Yes Anticipated Discharge Disposition: Home, Self Care Anticipated Discharge Timeframe: within 24 hours - Inpatient Certification Based on my medical assessment, after consideration of the patient's comorbid ities, presenting symptoms, or acuity I expect that the services needed warrant INPATIENT care.: Yes I certify that my determination is in accordance with my understanding of Medicare's requirements for reasonable and necessary INPATIENT services [42 CFR 412.3e].: Yes Medical Necessity: Significant Comorbidiites Make Outpatient Treatment Too Risky, Need Close Monitoring Due to Risk of Patient Decompensation, Risk of Complication if Not Cared For in Hospital, Risk of Diagnosis Which Will Require Inpatient Eval/Care/Monitoring
[2020-04-03] MEDS: HYDROCORTISONE ACETATE 25 MG SUPP.RECT PR SCH ×2 (12:37→17:35)
[2020-04-03] MEDS: POTASSIUM CHLORIDE 20 MEQ PACKET PO SCH (21:18)
[2020-04-04] MEDS: PIPERACILLIN SODIUM/TAZOBACTAM 3.375 GM in NORMAL SALINE 100 ML IV SCH ×3 (06:06→17:17)
[2020-04-04] MEDS: RINGERS SOLUTION,LACTATED 1,000 ML IV PRN ×2 (06:06→16:32)
[2020-04-04] MEDS: LIPASE/PROTEASE/AMYLASE 1 CAP CAPSULE.DR PO SCH ×2 (07:31→16:32)
[2020-04-04] MEDS: NICOTINE 14 MG/24 HR PATCH.TD24 TD SCH (09:43)
[2020-04-04] MEDS: RIFAXIMIN 550 MG TABLET PO SCH ×2 (09:44→17:18)
[2020-04-04] MEDS: THIAMINE HCL 100 MG TABLET PO SCH (09:44)
[2020-04-04] MEDS: HYDROCORTISONE ACETATE 25 MG SUPP.RECT PR SCH ×2 (09:44→17:18)
[2020-04-04] MEDS: FOLIC ACID 1 MG TABLET PO SCH (09:44)
[2020-04-04] MEDS: PANTOPRAZOLE SODIUM 40 MG VIAL IV SCH (09:44)
[2020-04-04] MEDS: MULTIVITAMIN TABLET PO SCH (09:44)
[2020-04-04] MEDS: PHYTONADIONE 5 MG TABLET PO SCH (09:44)
[2020-04-04] MEDS: POTASSIUM CHLORIDE 20 MEQ PACKET PO SCH (09:45)
[2020-04-04] MEDS: PREDNISOLONE SOD PHOS 15 MG/5 ML ORAL SYRING PO SCH (09:45)
[2020-04-04 09:47] LABS: ABSOLUTE BASOPHILS # (AUTO) 0.1 10^3/uL (0.0-0.2); ABSOLUTE EOSINOPHILS # (AUTO) 0.1 10^3/uL (0.0-0.6); ABSOLUTE LYMPHOCYTES (AUTO) 4.5 10^3/uL (0.5-4.7); ABSOLUTE MONOCYTES (AUTO) 1.7 10^3/uL (0.1-1.4); BASOPHILS % (AUTO) 0.8 % (0-2); EOSINOPHILS % (AUTO) 0.5 % (0-6); HEMATOCRIT 24.2 % (37.9-51.0); HEMOGLOBIN 8.7 g/dL (13.5-17.0); LYMPHOCYTES % (AUTO) 27.5 % (13-45); MEAN CORPUSCULAR HEMOGLOBIN 37.9 pg (27.0-33.4); MEAN CORPUSCULAR HGB CONC 35.9 g/dL (32.0-36.0); MEAN CORPUSCULAR VOLUME 106 fl (80-97); MONOCYTES % (AUTO) 10.5 % (3-13); PLATELET COUNT 124 10^3/uL (150-450); RED BLOOD COUNT 2.29 10^6/uL (4.35-5.55); RED CELL DISTRIBUTION WIDTH 14.6 % (11.5-14.0); SEGMENTED NEUTROPHILS % (AUTO) 60.7 % (42-78); TOTAL CELLS COUNTED % (AUTO) 100 %; WHITE BLOOD COUNT 16.5 10^3/uL (4.0-10.5)
[2020-04-04 10:32] LABS: ALBUMIN 2.4 g/dL (3.5-5.0); ALKALINE PHOSPHATASE 258 U/L (38-126); ASPARTATE AMINO TRANSFERASE 119 U/L (17-59); BILIRUBIN,DIRECT 1.6 mg/dL (0.0-0.4); BILIRUBIN,TOTAL 5.1 mg/dL (0.2-1.3); BLOOD UREA NITROGEN 14 mg/dL (7-20); CALCIUM 8.6 mg/dL (8.4-10.2); CARBON DIOXIDE 28 mmol/L (22-30); GLUCOSE 102 mg/dL (75-110); POTASSIUM 3.4 mmol/L (3.6-5.0)
[2020-04-04 10:37] LABS: ANION GAP 5 (5-19); CHLORIDE 105 mmol/L (98-107)
--- NOTE | 2020-04-04 18:39 | PDOC DISCHARGE SUMMARY ---
Impression - Admit/DC Date/PCP Admission Date/Primary Care Provider: 03/29/20 21:35 Discharge Date: 04/04/20 - Discharge Diagnosis (1) Alcoholic hepatitis with ascites Is this a current diagnosis for this admission?: Yes (2) Alcohol dependence Is this a current diagnosis for this admission?: Yes (3) Acute colitis Is this a current diagnosis for this admission?: Yes (4) Alcoholic gastritis Is this a current diagnosis for this admission?: Yes (5) Elevated bilirubin Is this a current diagnosis for this admission?: Yes (6) Hypokalemia Is this a current diagnosis for this admission?: Yes (7) Hyponatremia Is this a current diagnosis for this admission?: Yes (8) Nausea & vomiting Is this a current diagnosis for this admission?: Yes (9) Tobacco dependence Is this a current diagnosis for this admission?: Yes - Assessment Summary: Per Previous Physician: "VASU FELICIANO is a 25 year old male with no significant past medical history who presents with 2 to 3 weeks duration of nausea, vomiting and diarrhea. Patient reports that he has decreased appetite and whenever he tries to have a meal he throws up mostly ingested matter. Diarrhea is mostly watery but he also states that occasionally becomes mixed with bright red blood throughout his bowel movement. He also states that he has been having cough productive of blood-streaked sputum. Associated with this he also endorses a burning epigastric pain especially after having a meal or drinking water. Patient also states that he has cramping lower abdominal pain, fever, chills, pruritus and pleuritic chest pain. In the past 2 days he has been feeling dizzy when he gets up. His sister had bad cough and fever recently but he states that she tested negative for Covid 19. He drinks 8 cans of beer daily and states that in the past he has had tremors and excessive anxiety and agitation when trying to quit alcohol. He denies taking any hxip-eaf-gefsaez or herbal medications. He also denied any recent travel." 03/30/2020 Patient mated overnight for suspected alcoholic hepatitis and liver failure, diarrhea, pancolitis. Bilirubin is significantly elevated. I ordered MRCP and consulted GI. We will check ammonia level as the patient is somewhat slow to respond to my questioning and is something of a flat affect. CRP mildly elevated and ESR within normal limits. Patient was started on steroids on admission for alcoholic hepatitis and possible inflammatory bowel disease. Fern difficile is negative. Patient denies any localized abdominal pain. 03/31/2020 Patient states he feels perhaps slightly better versus the same today. Per my discussion with nursing, patient's mother has voiced that the patient has a flat odd affect ever since he began using methamphetamines 5 years ago. Patient states he quit using drugs 4 years ago and has not been using any illicit drugs for the past 4 years. Patient's INR is notably elevated at 3 we will start the patient on vitamin K. Patient is on a bowel prep today with plans for colonoscopy and EGD tomorrow. GI following. 04/01/2020 Patient seems to be clinically doing a bit better today versus the same. White blood cell count and platelets are higher and hemoglobin is lower. Blood cultures remain negative and stool culture is not growing any pathogens. Discussed the case with GI and will recheck INR to see if coagulopathy has improved with oral vitamin K. EGD and colonoscopy will reportedly be done today. We will follow up on these results. Patient has no new complaints today. 04/02/2020 Patient seems to be doing her better today. His mentation has not significantly improved since starting rifaximin given that his ammonia was only slightly elevated and the fact that his mother states his current mentation has been his baseline for the past few years since stopping meth abuse, I do not believe it would be worth the cost of this medication to continue to discharge. I am concerned that his diarrhea is related to pancreatic insufficiency given his longtime history of alcohol abuse. His lipase was elevated on admission at 522.3. I will check stool pancreatic elastase and start him on Creon twice daily with meals. Patient has not been here for 7 days on steroids but I did calculate a preliminary Saima score based on the data that we have and he seems to have a good 6-month life expectancy given his response to steroids thus far. We will plan to continue prednisolone for 28 days and finish therapy with a 16- day prednisolone taper by decreasing the dose by 10 mg per day every four days until a dose of 10 mg per day is reached, at which point we will decrease it by 5 mg per day every three days. Patient could potentially be discharged tomorrow. I had a long discussion with the patient and his father in the room today and answered many questions. Also I went into great detail explaining to him the pathophysiology behind the patient's liver failure. He must stop drinking alcohol permanently if he is to have any meaningful recovery if he is to maintain a reasonably long life expectancy. 04/03/2020 Patient seems to be doing at least as well as yesterday. Hemoglobin is notably lower today and will check iron studies on him. Quite possible he is iron deficient from malabsorption due to pancreatic insufficiency. If his iron is low, we will give him Venofer and start him on oral iron along with his Creon to help absorb it. Upper and lower endoscopy did not reveal any significant bleeding sources however the patient states he has noted having what he believes is hemorrhoids in the past. He had some rectal bleeding overnight on toilet paper. We will repeat his CBC to confirm hemoglobin is actually dropped. Potassium is low we will replace this. Start him on a multivitamin. Echocardiogram is still pending. Possible he can be discharged tomorrow if all goes well. Long discussion with the patient and his father on day of discharge. I believe the patient drinks excessive alcohol because he is depressed and I recommended that he follow-up with a psychiatrist as well as his GI and PCP. All are in agreement with the plan going forward was to be discharged home. Patient will be on a prednisone taper for total of 28 days counting the days that he received steroids inpatient. (1) ruled out acute colitis Is this a current diagnosis for this admission?: Yes Plan: Per Previous Physician: "Patient presents with 2 weeks duration of blood-streaked diarrhea CT abdomen showed diffuse thickening of colonic wall no involvement of the terminal ileum and it diffuse mesenteric lymphadenopathy, likely reactive Inflammatory bowel disease is a possible cause vs infectious etiology C. difficile was negative Continue Zosyn 3.375 gm IV every 6 hourly Zofran for nausea and vomiting Continue supportive care" GI consulted: EGD and colonoscopy 04/01 did not show any specific abnormalities, no colitis visualized Infectious versus inflammatory Steroids started, methylprednisolone which will need to continue for total 28 days Continue antibiotics Stool culture not growing any invasive pathogens Ammonia elevated, started on rifaximin only as patient has been already having diarrhea and lactulose would worsen this (2) Alcoholic gastritis Qualifiers: Chronicity: acute Gastritis bleeding: presence of bleeding unspecified Qualified Code(s): K29.20 - Alcoholic gastritis without bleeding Is this a current diagnosis for this admission?: Yes Plan: Per Previous Physician: "Patient reports epigastric pain with nausea and vomiting Mildly elevated lipase likely to be due to gastritis CT abdomen showed no sign of pancreatic inflammation or peripancreatic fluid collection Will keep him n.p.o. for now, and advance when he tolerates Pantoprazole 40 mg IV twice daily Continue IV hydration" GI following (3) Alcoholic hepatitis with ascites Is this a current diagnosis for this admission?: Yes Plan: Per Previous Physician: "A chronic alcoholic, now presents with nausea, vomiting, jaundice. Has no encephalopathy Elevated liver enzymes with AST/ALT ratio 2:1 consistent with alcoholic hepatitis And also has elevated bilirubin, leukocytosis INR is elevated at 3.04, has hypoalbuminemia Requested hepatitis panel, GGT Has signs of portal hypertension on imaging Nausea [place] alcoholic hepatitis score of 9, maddery's score of 95 indicating patient would likely benefit from steroid Started on prednisone 40 mg daily Continue IV hydration and monitor CMP" MRCP did not show choledocholithiasis Steroids -Continue for 28 days total, and finish therapy with a 16-day prednisone taper (decrease the dose by 10 mg per day every four days until a dose of 10 mg per day is reached, at which point decrease it by 5 mg per day every three days) -Lille Score: 0.021 - good, confers an 85% 6 month survival prognosis Given history of drug abuse ordered echocardiogram and I discussed the results with Dr. Rizo who stated he did not see any valvular vegetations and the patient had a normal EF and systolic function. (4) Hyponatremia Is this a current diagnosis for this admission?: Yes Plan: Per Previous Physician: "Likely due to volume depletion from GI loss Serum sodium was 126 Ordered serum osmolality, urine osmolality and urine sodium Continue IV hydration with a goal of correction being 4 to 6 mEq in the first 24 hours" Trend BMP Resolved (5) Hypokalemia Is this a current diagnosis for this admission?: Yes Plan: Serum potassium 3.2 on presentation Potassium chloride was given Monitor electrolytes and replete as needed Resolved -repleting (6) Elevated bilirubin Is this a current diagnosis for this admission?: Yes Plan: Per Previous Physician: "Likely due to alcoholic hepatitis Liver enzymes consistent with alcoholic hepatitis CT abdomen showed hepatomegaly, ultrasound also showed diffuse hepatocellular disease(steatosis) with mild right perihepatic ascites and signs of portal hypertension Follow-up with hepatitis panel, GGT Continue monitoring CMP and treat underlying cause" (7) Leukocytosis Is this a current diagnosis for this admission?: Yes Plan: Likely due to inflammatory colitis and alcoholic hepatitis Negative blood culture Continue treating the underlying causes (8) Anemia Is this a current diagnosis for this admission?: Yes Plan: Per Previous Physician: "H&H on presentation was 9.7/27.4 with an MCV of 106 Likely due to GI blood loss and chronic alcoholism Will obtain folic acid and vitamin B12 levels Continue monitoring CBC and will transfuse if hemoglobin falls below 7.0" (9) Thrombocytopenia Is this a current diagnosis for this admission?: Yes Plan: Likely due to splenic sequestration from portal hypertension Will continue to monitor (10) Alcohol abuse and dependency Is this a current diagnosis for this admission?: Yes Plan: Per Previous Physician: "Patient's alcohol level was 79 on presentation He reports withdrawal symptoms in the past when trying to quit, but no history of seizure or DTs Started him on symptom triggered CIWA with as needed lorazepam" Reportedly drinks 8 or more beers per day for several years No signs of withdrawal (11) Tobacco dependence Is this a current diagnosis for this admission?: Yes Plan: Encouraged and counseled him on tobacco cessation Nicotine patch while inpatient (12) Pancreatic insufficiency Suspect patient has malabsorption due to pancreatic insufficiency due to chronic alcohol abuse Started on Creon - Additional Information Resuscitation Status: Full Code Discharge Diet: As Tolerated, Regular Discharge Activity: Activity As Tolerated, Balance Activity w/Rest Referrals: GERARDO DE LA CRUZ MD [NO LOCAL MD] - Prescriptions: Hydrocortisone Acetate [Anusol Hc 25 mg Supp.rect] 25 mg NM BID #8 supp.rect Prednisolone [Millipred] 5 mg PO ASDIR PRN #100 tablet PRN Reason: Nicotine [Nicoderm 14 mg/24 Hr Transdermal Patch] 1 each TD DAILY #30 patch.td24 Lipase/Protease/Amylase [Pancreaze-10 Capsule.] 1 cap PO BIDACBS #60 capsule. Pantoprazole Sodium [Protonix [address] Tablet] 40 mg PO Q12 #60 tablet. Multivitamin [Tab-A-Ramos (Multiple Vitamin) Tablet] 1 tab PO DAILY #30 tablet Thiamine HCl [Thiamine 100 mg Tablet] 100 mg PO DAILY #30 tablet Home Medications: Hydrocortisone Acetate [Anusol Hc 25 mg Supp.rect] 25 mg NM BID #8 supp.rect 04/04/20 Lipase/Protease/Amylase [Pancreaze-10 Capsule.] 1 cap PO BIDACBS #60 capsule. 04/04/20 Multivitamin [Tab-A-Ramos (Multiple Vitamin) Tablet] 1 tab PO DAILY #30 tablet 04/04/20 Nicotine [Nicoderm 14 mg/24 Hr Transdermal Patch] 1 each TD DAILY #30 patch.td24 04/04/20 Pantoprazole Sodium [Protonix [address] Tablet] 40 mg PO Q12 #60 tablet.dr 1 06/05/19 Prednisolone [Millipred] 5 mg PO ASDIR PRN #100 tablet 04/04/20 Thiamine HCl [Thiamine 100 mg Tablet] 100 mg PO DAILY #30 tablet 04/04/20 History of Present Illiness History of Present Illness: VASU FELICIANO is a 25 year old male Physical Exam Vital Signs: Temp Pulse Resp BP Pulse Ox 97.8 F 82 20 126/58 H 96 04/04/20 16:00 04/04/20 16:00 04/04/20 16:00 04/04/20 16:00 04/04/20 16:00 Intake & Output 04/03/20 04/04/20 04/05/20 06:59 06:59 06:59 Intake Total 2885 3100 1600 Output Total 0 0 Balance 2885 3100 1600 Weight 82.2 kg 87.9 kg 87.9 kg Exam: General appearance: PRESENT: no acute distress, ill-appearing white male, states he feels well and would like to go home Head exam: PRESENT: atraumatic, normocephalic Eye exam: PRESENT: conjunctiva pink. scleral icterus Mouth exam: PRESENT: moist Respiratory exam: PRESENT: clear to auscultation maddy. ABSENT: rales, rhonchi, wheezes Cardiovascular exam: PRESENT: RRR. ABSENT: diastolic murmur, rubs, systolic murmur GI/Abdominal exam: PRESENT: normal bowel sounds, soft, nontender. ABSENT: distended, guarding, mass, organolmegaly, rebound Neurological exam: PRESENT: alert, awake, oriented to person, oriented to place, oriented to time Psychiatric exam: PRESENT: Flat odd affect, normal mood Skin exam: PRESENT: dry, intact, warm Results Laboratory Results: WBC 16.5 10^3/uL (4.0-10.5) H 04/04/20 09:29 RBC 2.29 10^6/uL (4.35-5.55) L 04/04/20 09:29 Hgb 8.7 g/dL (13.5-17.0) L 04/04/20 09: Hct 24.2 % (37.9-51.0) L 04/04/20 09: MCV 106 fl (80-97) H 04/04/20 09:29 MCH 37.9 pg (27.0-33.4) H 04/04/20 09: MCHC 35.9 g/dL (32.0-36.0) 04/04/20 09: RDW 14.6 % (11.5-14.0) H 04/04/20 09:29 Plt Count 124 10^3/uL (150-450) L 04/04/20 09: Lymph % (Auto) 27.5 % (13-45) 04/04/20 09: Williams % (Auto) 10.5 % (3-13) 04/04/20 09: Eos % (Auto) 0.5 % (0-6) 04/04/20 09: Baso % (Auto) 0.8 % (0-2) 04/04/20 09: Reticulocyte # 0.035 10^6/uL (0.028-0.122) 04/03/20 08:50 Absolute Neuts (auto) 10.0 10^3/uL (1.7-8.2) H 04/04/20 09:29 Absolute Lymphs (auto) 4.5 10^3/uL (0.5-4.7) 04/04/20 09: Absolute Monos (auto) 1.7 10^3/uL (0.1-1.4) H 04/04/20 09:29 Absolute Eos (auto) 0.1 10^3/uL (0.0-0.6) 04/04/20 09: Absolute Basos (auto) 0.1 10^3/uL (0.0-0.2) 04/04/20 09:29 Total Counted 100 04/01/20 19:30 Seg Neutrophils % 60.7 % (42-78) 04/04/20 09:29 Seg Neuts % (Manual) 85 % (42-78) H 04/01/20 19:30 Band Neutrophils % 1 % (3-5) L 03/29/20 17:17 Lymphocytes % (Manual) 13 % (13-45) 04/01/20 19:30 Atypical Lymphs % 2 % (0) 03/29/20 17:17 Monocytes % (Manual) 2 % (3-13) L 04/01/20 19:30 Eosinophils % (Manual) 0 % (0-6) 04/01/20 19:30 Basophils % (Manual) 0 % (0-2) 04/01/20 19:30 Metamyelocytes % Cancelled 03/29/20 15:57 Myelocytes % Cancelled 03/29/20 15:57 Promyelocytes % Cancelled 03/29/20 15:57 Immature Leukocytes % Cancelled 03/29/20 15:57 Abs Neuts (Manual) 13.1 10^3/uL (1.7-8.2) H 04/01/20 19:30 Abs Lymphs (Manual) 2.0 10^3/uL (0.5-4.7) 04/01/20 19:30 Abs Monocytes (Manual) 0.3 10^3/uL (0.1-1.4) 04/01/20 19:30 Absolute Eos (Manual) 0.0 10^3/uL (0.0-0.6) 04/01/20 19:30 Abs Basophils (Manual) 0.0 10^3/uL (0.0-0.2) 04/01/20 19:30 Nucleated RBCs 1 /100 WBC (0) 03/30/20 05:16 Differential Comment Cancelled 03/29/20 15:57 Hypersegmented Neuts Cancelled 03/29/20 15:57 Smudge Cells PRESENT 03/29/20 17:17 Toxic Granulation 1+ 04/01/20 19:30 Toxic Vacuolation PRESENT 03/30/20 05:16 Dohle Bodies Cancelled 03/29/20 15:57 Nadiya Rods Cancelled 03/29/20 15:57 WBC Morphology Comment Cancelled 03/29/20 15:57 Platelet Estimate Cancelled 03/29/20 15:57 Clumped Platelets Cancelled 03/29/20 15:57 Large Platelets Cancelled 03/29/20 15:57 Giant Platelets Cancelled 03/29/20 15:57 Platelet Comment DECREASED 04/01/20 19:30 Polychromasia SLIGHT 04/01/20 19:30 Hypochromasia Cancelled 03/29/20 15:57 Poikilocytosis 1+ 04/01/20 19:30 Basophilic Stippling Cancelled 03/29/20 15:57 Anisocytosis SLIGHT 04/01/20 19:30 Microcytosis Cancelled 03/29/20 15:57 Macrocytosis 2+ 04/01/20 19:30 Spherocytes Cancelled 03/29/20 15:57 Pappenheimer Bodies Cancelled 03/29/20 15:57 Sickle Cells Cancelled 03/29/20 15:57 Target Cells SLIGHT 03/30/20 05:16 Tear Drop Cells SLIGHT 04/01/20 19:30 Ovalocytes SLIGHT 04/01/20 19:30 Stomatocytes Cancelled 03/29/20 15:57 Helmet Cells Cancelled 03/29/20 15:57 Bojorquez-Laughlin Bodies Cancelled 03/29/20 15:57 Kia Cells 1+ 04/01/20 19:30 Acanthocytes (Spur) 2+ 03/29/20 17:17 Rouleaux Cancelled 03/29/20 15:57 Schistocytes SLIGHT 04/01/20 19:30 RBC Morph Comment Cancelled 03/29/20 15:57 ESR 8 mm/hr (0-15) 03/30/20 09:30 Retic Count (auto) 1.46 % (0.66-2.85) 04/03/20 08:50 PT 24.6 SEC (11.4-15.4) H 04/03/20 04:44 INR 2.22 04/03/20 04:44 APTT 65.4 SEC (23.5-35.8) H 03/29/20 22:35 Sodium 138.0 mmol/L (137-145) 04/04/20 09:29 Potassium 3.4 mmol/L (3.6-5.0) L 04/04/20 09:29 Chloride 105 mmol/L (98-107) 04/04/20 09:29 Carbon Dioxide 28 mmol/L (22-30) 04/04/20 09:29 Anion Gap 5 (5-19) 04/04/20 09:29 BUN 14 mg/dL (7-20) 04/04/20 09:29 Creatinine 0.71 mg/dL (0.52-1.25) 04/04/20 09:29 Est GFR ( Amer) > 60 (>60) 04/04/20 09:29 Est GFR (MDRD) Non-Af > 60 (>60) 04/04/20 09:29 Glucose 102 mg/dL (75-110) 04/04/20 09:29 POC Glucose 102 mg/dL (70-110) 03/30/20 16:33 Serum Osmolality 290 mOsm/kg (275-301) 03/29/20 15:57 Calcium 8.6 mg/dL (8.4-10.2) 04/04/20 09:29 Magnesium 2.2 mg/dL (1.6-2.3) 04/03/20 13:30 Iron 95.1 ug/dL (49-181) 04/03/20 08:50 TIBC 160 ug/dL (250-450) L 04/03/20 08:50 % Saturation 59 % 04/03/20 08:50 Ferritin 559.00 ng/mL (17.9-464.0) H 04/03/20 08:50 Total Bilirubin 5.1 mg/dL (0.2-1.3) H 04/04/20 09:29 Direct Bilirubin 1.6 mg/dL (0.0-0.4) H 04/04/20 09:29 Neonat Total Bilirubin Not Reportable 04/04/20 09:29 Neonat Direct Bilirubin Not Reportable 04/04/20 09:29 Neonat Indirect Bili Not Reportable 04/04/20 09:29 GGT 111 U/L (8-78) H 03/29/20 22:35 AST 119 U/L (17-59) H 04/04/20 09:29 ALT 117 U/L (<50) H 04/04/20 09:29 Alkaline Phosphatase 258 U/L (38-126) H 04/04/20 09:29 Ammonia 42.1 umol/L (9-33) H 03/30/20 13:00 C-Reactive Protein 10.8 mg/L (<10.0) H 03/30/20 05:16 Total Protein 6.0 g/dL (6.3-8.2) L 04/04/20 09:29 Albumin 2.4 g/dL (3.5-5.0) L 04/04/20 09:29 Lipase 522.3 U/L (23-300) H 03/29/20 15:57 Vitamin B12 878.0 pg/mL (239-931) 03/31/20 04:50 Folate 3.57 ng/mL (>2.76) 03/31/20 04:50 Urine Color HUSSEIN 03/29/20 17:33 Urine Appearance CLEAR 03/29/20 17:33 Urine pH 7.0 (5.0-9.0) 03/29/20 17:33 Ur Specific Buras 1.008 03/29/20 17:33 Urine Protein NEGATIVE mg/dL (NEGATIVE) 03/29/20 17:33 Urine Glucose (UA) NEGATIVE mg/dL (NEGATIVE) 03/29/20 17:33 Urine Ketones NEGATIVE mg/dL (NEGATIVE) 03/29/20 17:33 Urine Blood NEGATIVE (NEGATIVE) 03/29/20 17:33 Urine Nitrite NEGATIVE (NEGATIVE) 03/29/20 17:33 Urine Bilirubin NEGATIVE (NEGATIVE) 03/29/20 17:33 Urine Urobilinogen NEGATIVE mg/dL (<2.0) 03/29/20 17:33 Ur Leukocyte Esterase NEGATIVE (NEGATIVE) 03/29/20 17:33 Urine WBC (Auto) 0 /HPF 03/29/20 17:33 Urine RBC (Auto) 0 /HPF 03/29/20 17:33 Squamous Epi Cells Auto <1 /HPF 03/29/20 17:33 Urine Mucus (Auto) RARE /LPF 03/29/20 17:33 Urine Osmolality 185 mOsm/kg (300-900) L 03/29/20 17:33 Urine Sodium < 5 mmol/L (30-90) L 03/29/20 17:33 Urine Ascorbic Acid NEGATIVE (NEGATIVE) 03/29/20 17:33 Stool for White Cells NO WBCs SEEN 03/29/20 21:16 Stl C. Difficile GDH Ag NEGATIVE (NEGATIVE) 03/29/20 21:16 Stl C.difficile Tox A&B NEGATIVE (NEGATIVE) 03/29/20 21:16 Urine Opiates Screen NEGATIVE 03/29/20 17:33 Urine Methadone Screen NEGATIVE 03/29/20 17:33 Ur Barbiturates Screen NEGATIVE 03/29/20 17:33 Ur Phencyclidine Scrn NEGATIVE 03/29/20 17:33 Ur Amphetamines Screen NEGATIVE 03/29/20 17:33 U Benzodiazepines Scrn NEGATIVE 03/29/20 17:33 Urine Cocaine Screen NEGATIVE 03/29/20 17:33 U Marijuana (THC) Screen NEGATIVE 03/29/20 17:33 Serum Alcohol 89 mg/dL (NONE DETECTED) 03/29/20 15:57 COVID-19 Source See comment 03/29/20 15:57 COVID-19 (NESTOR) Not Detected (Not Detect) 03/29/20 15:57 Hepatitis A IgM Ab Negative (Negative) 03/29/20 22:35 Hep Bs Antigen Negative (Negative) 03/29/20 22:35 Hep B Core IgM Ab Negative (Negative) 03/29/20 22:35 Hepatitis C Antibody 0.1 s/co ratio (0.0-0.9) 03/29/20 22:35 HIV 1&2 Antibody NEGATIVE (NEGATIVE) 03/30/20 05:16 Influenza A (Rapid) NEGATIVE (NEGATIVE) 03/29/20 15:57 Influenza B (Rapid) NEGATIVE (NEGATIVE) 03/29/20 15:57 Slides for Path Review Cancelled 03/29/20 15:57 Blood Type O NEGATIVE 04/01/20 11:01 Impressions: Abdomen/Pelvis CT 03/29/20 18:30 IMPRESSION: 1. Diffuse thickening of the colonic wall with no definitive involvement of the terminal ileum. This may represent Crohn's or ulcerative colitis. There is diffuse mesenteric adenopathy most likely reactive. 2. Pericholecystic edema. There is perihepatic fluid. Correlation with ultrasound is recommended. 3. Hepatosplenomegaly. Hepatic steatosis. 4. Small amount of free fluid in the right lower quadrant and pelvis. Abdomen Ultrasound 03/29/20 19:36 IMPRESSION: Echogenic liver which is coarsened in echotexture, suggestive of diffuse hepatocellular disease such as hepatic steatosis. Superimposed bidirectional flow within the portal vein with poorly assessed color Doppler. However, the portal vein appeared patent on the recent CT. As such, the bidirectional flow within the portal vein is potentially related to portal hypertension. Isolated gallbladder wall thickening, nonspecific. This could be related to underlying chronic liver disease. Suspect gallbladder sludge. Mild right hydronephrosis. Small amount of perihepatic ascites. copyright 2011 [email or web address]- All Rights Reserved Chest X-Ray 03/29/20 22:30 IMPRESSION: No acute disease. copyright 2010 [email or web address]- All Rights Reserved Abdomen MRI 03/30/20 00:00 IMPRESSION: Technical limitations. No stones or common bile duct abnormality. Plan Plan of Treatment: Follow-up with PCP Follow-up with GI Follow-up with psychiatry Stop drinking alcohol permanently Prednisone taper over total of 28 days Time Spent: Greater than 30 Minutes Stroke Is this a Stroke Patient?: No Acute Heart Failure Is this a Heart Failure Patient?: No
[2020-04-04 18:59] VITALS: BP 109/49
--- NOTE | 2020-04-04 19:00 | XCELERA REPORT ---
[address] [address] Transthoracic Echocardiogram Report Name: VASU FELICIANO Age: 25 yrs Gender: Male : 1995 Patient Status: [facility] Study Date: 04/04/2020 02:32 PM Height: 71 in Weight: 193 lb BSA: 2.1 m2 Reason For Study: CHF Ordering Physician: DENIA HUIZAR Performed By: Genevieve Guadalupe Interpretation Summary The left ventricle is moderately dilated. Left ventricular systolic function is normal. The Ejection Fraction estimate is 60-65%. Doppler measurements suggest normal left ventricular diastolic function. The left ventricular wall motion is normal. Trace MR, trace to mild TR. No gross echocardiographic evidence of valvular vegetations on this surface study. Of note, surface echocardiograms may miss small vegetations, consider transthoracic echocardiogram if clinically indcated. No prior studies for comparison. MMode/2D Measurements & Calculations RVDd: 2.9 cm LVIDd: 6.1 cm FS: 30.5 % Ao root diam: IVSd: 0.92 cm LVIDs: 4.2 cm EDV(Teich): 2.6 cm LVPWd: 0.95 cm 185.5 ml Ao root area: ESV(Teich): 79.7 ml 5.4 cm2 LA dimension: EF(Teich): 57.0 % 3.8 cm LVLd ap4: 9.4 cm SV(MOD-sp4): EDV(MOD-sp4): 99.0 ml 167.0 ml LVLs ap4: 7.8 cm ESV(MOD-sp4): 68.0 ml EF(MOD-sp4): 59.3 % Doppler Measurements & Calculations MV E max cat: MV P1/2t max cat: Ao V2 max: LV V1 max P.1 cm/sec 110.0 cm/sec 172.4 cm/sec 9.6 mmHg MV A max cat: MV P1/2t: 62.9 msec Ao max PG: LV V1 max: 79.2 cm/sec MVA(P1/2t): 3.5 cm2 11.9 mmHg 154.6 cm/sec MV E/A: 1.4 MV dec slope: 512.4 cm/sec2 MV dec time: 0.20 sec PA V2 max: PI end-d cat: TR max cat: MV P1/2t-pr_phl: 95.3 cm/sec 109.6 cm/sec 240.5 cm/sec 62.9 msec PA max P.6 mmHg TR max P.1 mmHg Left Ventricle The left ventricle is moderately dilated. Left ventricular systolic function is normal. The Ejection Fraction estimate is 60-65%. Doppler measurements suggest normal left ventricular diastolic function. The left ventricular wall motion is normal. Right Ventricle The right ventricle is normal in size, thickness and function. The right ventricular systolic function is normal. Atria The right atrium is normal. The left atrial size is normal. Mitral Valve The mitral valve is normal in structure and function. No gross echocardiographic evidence of vegetation. There is a trace amount of mitral regurgitation. Aortic Valve The aortic valve is normal in structure and functions normally. No gross echocardiographic evidence of vegetation. No aortic regurgitation is present. Tricuspid Valve The tricuspid is normal in structure and function. No gross echocardiographic evidence of vegetation. There is a trace to mild amount of tricuspid regurgitation. Pulmonic Valve The pulmonic valve is not well seen, but is grossly normal. No gross echocardiographic evidence of vegetation. There is no pulmonic valvular regurgitation. Effusions There is no pericardial effusion. There is no pleural effusion. : DENIA HUIZAR Antonio
[2020-04-04] MEDS ORDERED: PANTOPRAZOLE SODIUM 40 MG TABLET.DR PO SCH (22:00)
== END 2020-04-04 19:44 | disposition home or self-care (01) | DRG 392 ==
LOC: ER 15:00 → EH 21:35 → 3W 03-30 01:57 → 5 03-31 13:42
PROVIDERS: ADMIT Student in an Organized Health Care Education/Training Program; ATTEND Internal Medicine
PROC: HZ2ZZZZ Detoxification Services for Substance Abuse Treatment (ICD-10-PCS; 2020-03-29)
PROC: 30233L1 Transfusion of Nonautologous Fresh Plasma into Peripheral Vein, Percutaneous Approach (ICD-10-PCS; 2020-04-01)
PROC: 0DJ08ZZ Inspection of Upper Intestinal Tract, Via Natural or Artificial Opening Endoscopic (ICD-10-PCS; principal; 2020-04-01 13:00)
PROC: 0DJD8ZZ Inspection of Lower Intestinal Tract, Via Natural or Artificial Opening Endoscopic (ICD-10-PCS; 2020-04-01 13:00)
PROC: B24BZZ4 Ultrasonography of Heart with Aorta, Transesophageal (ICD-10-PCS; 2020-04-04)
DX: K52.3 Indeterminate colitis (principal); E87.1 Hypo-osmolality and hyponatremia; K76.6 Portal hypertension; E87.6 Hypokalemia; Y90.4 Blood alcohol level of 80-99 mg/100 ml; Z20.828 Contact with and (suspected) exposure to other viral communicable diseases; K70.11 Alcoholic hepatitis with ascites; K29.20 Alcoholic gastritis without bleeding; F17.210 Nicotine dependence, cigarettes, uncomplicated; F10.20 Alcohol dependence, uncomplicated; D50.0 Iron deficiency anemia secondary to blood loss (chronic); D69.6 Thrombocytopenia, unspecified; K86.89 Other specified diseases of pancreas; F41.9 Anxiety disorder, unspecified; Z79.899 Other long term (current) drug therapy
CPT/HCPCS: 36415; 36430; 43235; 45378; 71046; 74177; 74181; 76705; 80048; 80053; 80074; 80076; 80307; 81001; 813; 82140; 82607; 82656; 82728; 82746; 82962; 82977; 83540; 83550; 83690; 83735; 83930; 83935; 84300; 85025; 85045; 85610; 85652; 85730; 86140; 86701; 86900; 86901; 87040; 87045; 87205; 87324; 87449; 87635; 87804; 89055; 93306; 96361; 96365; 96375; 96376; 99285; A9270-GY; C9113; C9803; J0171; J1610; J2310; J2405; J2543; J2704; J2920; J3010; J3475; J3490; J7030; J7050; J7120; J7510; P9017; S0028

== ENCOUNTER 2020-04-05 17:10 | Inpatient (IN) | payer OTHER ==
[2020-04-05] MEDS ORDERED: NORMAL SALINE 1000 ML 1,000 ML IV ONE (17:46)
--- NOTE | 2020-04-05 17:47 | ER Document Report ---
ED Medical Screen (RME) - General Stated Complaint: ABDOMINAL PAIN, SHORTNESS OF BREATH Time Seen by Provider: 04/05/20 17:36 TRAVEL OUTSIDE OF THE [place] IN LAST 30 DAYS: No - HPI Notes: 04/05/20 17:43 25-year-old male with a history of alcoholic hepatitis, liver failure, pancolitis who was just discharged from [facility] yesterday presents to the emergency room today for chest pain, abdominal pain, nausea, generalized weakness. Patient states he feels like he is getting worse, states he feels like he was not medically ready for discharge yesterday. Patient was admitted on March 30 for alcoholic hepatitis. While admitted, patient underwent an EGD, colonoscopy, echocardiogram and MRCP and is referred to a extern as well as a psychiatrist for his depression. Patient is yet to follow-up with extern. Was discharged home with steroids. Patient has a history of methamphetamine use 5 years ago but per hospital discharge from yesterday he quit using drugs 4 years ago. Patient did have an elevated white count yesterday. patient states he has not had anything to drink in over a week. Denies any illicit drug use today. Heart rate is 128, temperature is 99.1. Patient states overall he is not feeling well. Denies any nausea or vomiting. I have greeted and performed a rapid initial assessment of this patient. A comprehensive ED assessment and evaluation of the patient, analysis of test results and completion of the medical decision making process will be conducted by additional ED providers. PHYSICAL EXAMINATION: GENERAL: Acutely ill, well-nourished and in mild distress HEAD: Atraumatic, normocephalic. EYES: Pupils equal round extraocular movements intact, conjunctiva are normal. Pupils bilaterally 6 mm CV: s1, s2 regular LUNGS: No respiratory distress abd: Generalized abdominal pain Musculoskeletal: Normal range of motion NEUROLOGICAL: Slow to respond with answers. 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 Patient made a level 2. Juli Lord charge nurse made aware at [id number] 04/05/20 17:58 - Related Data Allergies/Adverse Reactions: No Known Allergies Allergy (Verified 04/05/20 17:35) Past Medical History Renal/ Medical History: Denies: Hx Peritoneal Dialysis Psychiatric Medical History: Reports: Hx Borderline Personality Disorder Denies: Hx Depression - Immunizations Immunizations up to date: Yes Hx Diphtheria, Pertussis, Tetanus Vaccination: Yes - 2008 Physical Exam - Vital signs Vitals: Temp Pulse Resp BP Pulse Ox 99.1 F 128 H 24 H 143/70 H 96 04/05/20 17:24 04/05/20 17:24 04/05/20 17:24 04/05/20 17:24 04/05/20 17:24 Course - Vital Signs Vital signs: Temp Pulse Resp BP Pulse Ox 99.1 F 128 H 24 H 143/70 H 96 04/05/20 17:24 04/05/20 17:24 04/05/20 17:24 04/05/20 17:24 04/05/20 17:24
--- NOTE | 2020-04-05 18:32 | RADIOLOGY REPORT (SQ) ---
EXAM DESCRIPTION: CHEST SINGLE VIEW IMAGES COMPLETED DATE/TIME: 04/05/2020 6:03 pm REASON FOR STUDY: chest pain COMPARISON: 03/29/2020 EXAM PARAMETERS: NUMBER OF VIEWS: One view. TECHNIQUE: Single frontal radiographic view of the chest acquired. RADIATION DOSE: NA LIMITATIONS: None. FINDINGS: LUNGS AND PLEURA: New finding of bibasilar opacities and some consolidation left lower víctor ng zone. Trace bilateral pleural effusions. No evidence of pneumothorax. MEDIASTINUM AND HILAR STRUCTURES: No masses. Contour normal. HEART AND VASCULAR STRUCTURES: Cardiomegaly since the prior examination. Slight pulmonary vascular congestion. Heart normal in size. Normal vasculature. BONES: No acute findings. HARDWARE: None in the chest. OTHER: No other significant finding. IMPRESSION: 1. Since the prior study dated 03/29/2020, new interval finding of bibasilar opacities a nd some consolidation in the left lower lung zone may be on the basis of pneumonia. Trace bilateral pleural effusions. Is there any underlying history of COVID-19 disease? 2. Cardiomegaly since the prior study. Slight pulmonary vascular congestion. TECHNICAL DOCUMENTATION: JOB ID: [id number] [employer]- All Rights Reserved Reading location - IP/workstation name: [email or web address]
[2020-04-05 19:09] LABS: HEMATOCRIT 26.1 % (37.9-51.0); MEAN CORPUSCULAR HEMOGLOBIN 37.4 pg (27.0-33.4); MEAN CORPUSCULAR HGB CONC 34.7 g/dL (32.0-36.0); MEAN CORPUSCULAR VOLUME 108 fl (80-97); PLATELET COUNT 131 10^3/uL (150-450); RED BLOOD COUNT 2.42 10^6/uL (4.35-5.55); RED CELL DISTRIBUTION WIDTH 15.5 % (11.5-14.0); WHITE BLOOD COUNT 20.4 10^3/uL (4.0-10.5)
[2020-04-05 19:24] LABS: URINE AMPHETAMINES SCREEN NEGATIVE; URINE BARBITURATES SCREEN NEGATIVE; URINE BENZODIAZEPINES SCREEN NEGATIVE; URINE COCAINE SCREEN NEGATIVE; URINE MARIJUANA (THC) SCREEN NEGATIVE; URINE METHADONE SCREEN NEGATIVE; URINE PHENCYCLIDINE SCREEN NEGATIVE
[2020-04-05 19:25] LABS: ALBUMIN 2.8 g/dL (3.5-5.0); ALKALINE PHOSPHATASE 275 U/L (38-126); ASPARTATE AMINO TRANSFERASE 127 U/L (17-59); BILIRUBIN,DIRECT 1.6 mg/dL (0.0-0.4); BILIRUBIN,TOTAL 5.9 mg/dL (0.2-1.3); BLOOD UREA NITROGEN 14 mg/dL (7-20); CALCIUM 8.7 mg/dL (8.4-10.2); CHLORIDE 102 mmol/L (98-107); GLUCOSE 116 mg/dL (75-110); POTASSIUM 3.6 mmol/L (3.6-5.0); TOTAL PROTEIN 6.6 g/dL (6.3-8.2)
[2020-04-05 19:28] LABS: APPEARANCE,URINE SLIGHTLY-CLOUDY; BILIRUBIN,URINE NEGATIVE (NEGATIVE); COLOR,URINE AMBER; GLUCOSE, URINE NEGATIVE (NEGATIVE); KETONES,URINE NEGATIVE (NEGATIVE); LEUKOCYTE ESTERASE,URINE NEGATIVE (NEGATIVE); NITRITE,URINE NEGATIVE (NEGATIVE); PROTEIN,URINE 30 mg/dL (NEGATIVE); URINE SPECIFIC GRAVITY 1.029
[2020-04-05 19:29] LABS: CARBON DIOXIDE 30 mmol/L (22-30)
[2020-04-05 19:32] LABS: ANION GAP 2 (5-19)
[2020-04-05 19:34] LABS: ABSOLUTE LYMPHOCYTES# (MANUAL) 1.8 10^3/uL (0.5-4.7); ABSOLUTE MONOCYTES # (MANUAL) 2.9 10^3/uL (0.1-1.4); BASOPHILS % (MANUAL) 0 % (0-2); EOSINOPHILS % (MANUAL) 0 % (0-6); LYMPHOCYTES % (MANUAL) 9 % (13-45); MONOCYTES % (MANUAL) 14 % (3-13); SEGMENTED NEUTROPHILS % (MAN) 77 % (42-78); TOTAL CELLS COUNTED 100
[2020-04-05 19:36] LABS: ANISOCYTOSIS SLIGHT; BURR CELLS SLIGHT; POIKILOCYTOSIS SLIGHT
[2020-04-05 19:37] LABS: PLATELET COMMENT DECREASED; SCHISTOCYTES SLIGHT; TEAR DROP CELLS SLIGHT
[2020-04-05] MEDS ORDERED: CEFEPIME 2 GM/D5W RTU 2 GM/50 ML RTUPB IV ONE (20:33)
[2020-04-05] MEDS ORDERED: VANCOMYCIN HCL INJ 1000 MG VIAL IV ONE (20:34)
[2020-04-05 20:45] LABS: INTERNATIONAL RATION (INR) 1.75; PARTIAL THROMBOPLASTIN TIME 37.2 SEC (23.5-35.8); PROTHROMBIN TIME 20.5 SEC (11.4-15.4)
[2020-04-05] MEDS ORDERED: MORPHINE SULFATE 10 MG/ML INJ IV ONE (20:49)
[2020-04-05] MEDS ORDERED: ONDANSETRON HCL INJ/PF 4 MG/2 ML SDV IV ONE (20:49)
--- NOTE | 2020-04-05 20:53 | ER Document Report ---
ED General - General Chief Complaint: Abdominal Pain Stated Complaint: ABDOMINAL PAIN, SHORTNESS OF BREATH Time Seen by Provider: 04/05/20 17:36 TRAVEL OUTSIDE OF THE [place] IN LAST 30 DAYS: No - HPI Notes: Patient is a 25-year-old male who presents to the emergency department for evaluation. He was just discharged from the hospital yesterday. He has a history of alcoholic hepatitis, pancolitis. He had extensive work-up in the hospital. He states that starting last night at about 8 PM he developed left- sided lower chest pain and upper abdominal pain. Sharp and stabbing. Is made worsened by any sort of movement. He has had some chills, but states that those have been present for about the last week. He does have a cough, intermittently productive. He denies any hemoptysis. He has had 2 episodes of nausea with nonbilious emesis, states that they are blood-streaked. Normal bowel movements. Normal urination. He states the swelling in his abdomen has not worsened. He states he has not been drinking alcohol since being discharged from the hospital. He states he did get his prescriptions filled and are taking the medication as prescribed at discharge as directed. - Related Data Allergies/Adverse Reactions: No Known Allergies Allergy (Verified 04/05/20 17:35) Past Medical History - General Information source: Patient - Social History Smoking Status: Current Every Day Smoker Frequency of alcohol use: Former heavy drinking Drug Abuse: None - History of amphetamine abuse Family History: Reviewed & Not Pertinent Renal/ Medical History: Denies: Hx Peritoneal Dialysis GI Medical History: Reports: Hx Gastroesophageal Reflux Disease, Hx Hepatitis - Alcoholic Psychiatric Medical History: Reports: Hx Borderline Personality Disorder Denies: Hx Depression - Immunizations Immunizations up to date: Yes Hx Diphtheria, Pertussis, Tetanus Vaccination: Yes - 2008 Review of Systems - Review of Systems Constitutional: See HPI EENT: No symptoms reported Cardiovascular: See HPI Respiratory: See HPI Gastrointestinal: See HPI Genitourinary: No symptoms reported Musculoskeletal: No symptoms reported Skin: No symptoms reported Neurological/Psychological: No symptoms reported -: Yes All other systems reviewed and negative Physical Exam - Vital signs Vitals: Temp Pulse Resp BP Pulse Ox 99.1 F 128 H 24 H 143/70 H 96 04/05/20 17:24 04/05/20 17:24 04/05/20 17:24 04/05/20 17:24 04/05/20 17:24 - Notes Notes: Vital signs reviewed, please refer to chart. Head is normocephalic, atraumatic. Pupils equal round, reactive to light. Neck is supple without meningismus. Heart is regular rate and rhythm. Lungs are clear to auscultation bilaterally. Abdomen is firm with positive fluid wave, global tenderness, normoactive bowel sounds throughout. Extremities without cyanosis, clubbing. 3+ pitting edema to the thighs. Posterior calves are nontender. Peripheral pulses are equal. Skin is warm and dry. Patient is awake, alert, neurological exam is nonfocal. Course - Re-evaluation Re-evalutation: 04/05/20 20:55 Patient presents emergency department for evaluation. He is tachycardic with mildly elevated temperature on arrival. Laboratory investigations were ordered through triage. I did order additional labs. His temperature has been increasing. He does have some pain. His chest x-ray shows findings consistent with pneumonia, possibly for Covid. The patient was just recently hospitalized. Covid test ordered. His antibiotics were ordered as for hospital-acquired pneumonia, including cefepime and vancomycin. Blood cultures are pending. I am awaiting coags . He is currently stable, we will continue to monitor. 04/05/20 20:57 Patient has a significant leukocytosis, this may be secondary to the steroid ad ministration. At any rate, I did give the patient a liter of fluids this did not significantly affect his heart rate. Based on the fact that he does have some findings consistent with pulmonary vascular congestion, and chronic liver failure with low albumin, as well as possible COVID-19 infection, I am not inclined to give the patient a sepsis bolus of fluids as I am concerned that this will worsen his breathing status. 04/05/20 22:55 CT scan shows fluid overload. Patient has already been treated for pneumonia. I will contact medicine for admission. 04/05/20 23:[address] Mead, patient will be admitted for further care. I spoke with the nursing steel division supervisor, patient's traditional Covid test will be converted to rapid. - Vital Signs Vital signs: Temp Pulse Resp BP Pulse Ox 99.8 F 128 H 24 H 147/88 H 95 04/05/20 20:00 04/05/20 17:24 04/05/20 22:15 04/05/20 22:15 04/05/20 22:15 - Laboratory Results Result Diagrams: 04/05/20 18:45 04/05/20 18:45 Laboratory Results Interpreted: 04/05/20 04/05/20 04/05/20 18:45 18:45 18:45 WBC 20.4 H RBC 2.42 L Hgb 9.0 L Hct 26.1 L MCV 108 H MCH 37.4 H RDW 15.5 H Plt Count 131 L Lymphocytes % (Manual) 9 L Monocytes % (Manual) 14 H Abs Neuts (Manual) 15.7 H Abs Monocytes (Manual) 2.9 H PT APTT Sodium 133.9 L Anion Gap 2 L Glucose 116 H Total Bilirubin 5.9 H Direct Bilirubin 1.6 H AST 127 H ALT 132 H Alkaline Phosphatase 275 H Albumin 2.8 L Lipase 617.4 H Urine Protein 30 H Urine Urobilinogen 2.0 H 04/05/20 18:48 WBC RBC Hgb Hct MCV MCH RDW Plt Count Lymphocytes % (Manual) Monocytes % (Manual) Abs Neuts (Manual) Abs Monocytes (Manual) PT 20.5 H APTT 37.2 H Sodium Anion Gap Glucose Total Bilirubin Direct Bilirubin AST ALT Alkaline Phosphatase Albumin Lipase Urine Protein Urine Urobilinogen Critical Laboratory Results Reviewed: No Critical Results - Radiology Results Radiology Results Interpreted: 04/05/20 20:56 Chest X-Ray 04/05/20 17:42 IMPRESSION: 1. Since the prior study dated 03/29/2020, new interval finding of bibasilar opacities and some consolidation in the left lower lung zone may be on the basis of pneumonia. Trace bilateral pleural effusions. Is there any underlying history of COVID-19 disease? 2. Cardiomegaly since the prior study. Slight pulmonary vascular congestion. Critical Radiology Results Reviewed: No Critical Results Discharge - Discharge Clinical Impression: Elevated bilirubin, Thrombocytopenia, Person under investigation for COVID-19 Left lower lobe pneumonia Qualifiers: Pneumonia type: due to unspecified organism Qualified Code(s): J18.9 - Pneumonia, unspecified organism Condition: Stable Disposition: ADMITTED INPATIENT Admitting Provider: [facility] Unit Admitted: Medical Floor
--- NOTE | 2020-04-05 22:38 | RADIOLOGY REPORT (SQ) ---
CT abdomen and pelvis with contrast on 04/05/2020 at 9:40 PM CLINICAL INDICATION: Generalized abdominal pain, tachycardia, recently diagnosed with pancolitis TECHNIQUE: Multiple axial images are obtained throughout the abdomen and pelvis following the administration of IV and oral contrast. This exam was performed according to our departmental dose-optimization program, which includes automated exposure control, adjustment of the mA and/or kV according to patient size and/or use of iterative reconstruction technique. Total DLP is 1407.39 mGy*cm. COMPARISON: 03/29/2020 FINDINGS: Abdomen: There has been development of very small bilateral pleural effusions with adjacent left greater than right basilar atelectasis. Anasarca is noted in the subcutaneous tissues. [id number] amount of ascites is noted in the abdomen and pelvis. The solid abdominal organs are unremarkable. There is no abdominal adenopathy. There is no free air in the abdomen. There has been improvement in the prior diffuse colonic wall thickening consistent with an improving colitis. There does remain some wall thickening of the cecum and ascending colon consistent with residual right-sided colitis. Most likely this is infectious in nature but please correlate clinically. There is no evidence of obstruction. Oral contrast reaches the sigmoid colon. Pelvis: Moderate amount of ascites is noted in the pelvis. There is no pelvic adenopathy. Pelvic portion of the GI tract is otherwise unremarkable. Degenerative changes are noted in the spine. IMPRESSION: 1. Developing bilateral pleural effusions, ascites and anasarca consistent with some volume overload and/or third spacing. 2. Improvement in the prior colitis with residual right-sided colitis most likely an infectious colitis but please correlate clinically.
[2020-04-06] MEDS ORDERED: MORPHINE SULFATE 10 MG/ML INJ IV ONE (00:24)
[2020-04-06] MEDS ORDERED: VANCOMYCIN HCL 0 MG in DEXTROSE 5%-WATER 250 ML IV NR (01:15)
[2020-04-06] MEDS ORDERED: AZITHROMYCIN INJ 500 MG VIAL IV PRN (01:24)
[2020-04-06] MEDS ORDERED: AZITHROMYCIN 500 MG in DEXTROSE 5%-WATER 250 ML IV ONE (02:00)
[2020-04-06] MEDS: ACETAMINOPHEN 325 MG TABLET PO PRN ×4 (04:59→21:55)
[2020-04-06] MEDS: PANTOPRAZOLE SODIUM 40 MG TABLET.DR PO SCH ×2 (05:01→16:33)
[2020-04-06 08:09] LABS: INTERNATIONAL RATION (INR) 1.91
[2020-04-06 08:25] LABS: ABSOLUTE EOSINOPHILS # (AUTO) 0.1 10^3/uL (0.0-0.6); ABSOLUTE LYMPHOCYTES (AUTO) 2.8 10^3/uL (0.5-4.7); ABSOLUTE MONOCYTES (AUTO) 2.5 10^3/uL (0.1-1.4); ABSOLUTE NEUT (AUTO) 12.7 10^3/uL (1.7-8.2); BASOPHILS % (AUTO) 0.2 % (0-2); EOSINOPHILS % (AUTO) 0.3 % (0-6); HEMOGLOBIN 8.4 g/dL (13.5-17.0); LYMPHOCYTES % (AUTO) 15.6 % (13-45); MEAN CORPUSCULAR HEMOGLOBIN 37.9 pg (27.0-33.4); MEAN CORPUSCULAR HGB CONC 34.8 g/dL (32.0-36.0); MEAN CORPUSCULAR VOLUME 109 fl (80-97); MONOCYTES % (AUTO) 13.9 % (3-13); RED BLOOD COUNT 2.21 10^6/uL (4.35-5.55); TOTAL CELLS COUNTED % (AUTO) 100 %; WHITE BLOOD COUNT 18.1 10^3/uL (4.0-10.5)
[2020-04-06] MEDS: VANCOMYCIN HCL 1,250 MG in DEXTROSE 5%-WATER 250 ML IV SCH ×2 (08:26→16:33)
[2020-04-06 08:33] LABS: ALBUMIN 2.4 g/dL (3.5-5.0); ALKALINE PHOSPHATASE 191 U/L (38-126); ASPARTATE AMINO TRANSFERASE 96 U/L (17-59); BILIRUBIN,DIRECT 1.8 mg/dL (0.0-0.4); BILIRUBIN,TOTAL 6.8 mg/dL (0.2-1.3); BLOOD UREA NITROGEN 13 mg/dL (7-20); CALCIUM 8.5 mg/dL (8.4-10.2); GLUCOSE 88 mg/dL (75-110); POTASSIUM 3.8 mmol/L (3.6-5.0); TOTAL PROTEIN 5.8 g/dL (6.3-8.2)
[2020-04-06 08:38] LABS: CARBON DIOXIDE 27 mmol/L (22-30); CHLORIDE 101 mmol/L (98-107)
[2020-04-06 08:39] LABS: ANION GAP 2 (5-19)
[2020-04-06 09:10] LABS: PLATELET COUNT 102 10^3/uL (150-450)
--- NOTE | 2020-04-06 09:18 | PDOC H&P ---
History of Present Illness Admission Date/PCP: 04/05/20 23:31 Patient complains of: Left-sided chest and upper abdominal pain and shortness of breath History of Present Illness: VASU FELICIANO is a 25 year old male This unfortunate young man is suffering from alcoholic hepatitis. He was admitted to the hospital in March 29 and discharged on April 04. CT scan of the abdomen showed possible right-sided colitis. He underwent colonoscopy which was fairly unremarkable. EGD was done which was unremarkable as well. He was started on 40 mg prednisone daily for alcoholic hepatitis on 01 April. He had some ascites and some edema as well. Eventually he was discharged home in stable condition on 04 April. He was doing well initially but next day he started developing left-sided lateral chest pain and left upper abdominal pain. He thought he may have a little bit more swelling. He was very weak. He developed shortness of breath. He is not sure about having fever at home or not. In the emergency department he had sinus tachycardia, stable blood pressure. His oxygen saturation was between 95 to 100%. He was started on cefepime and vancomycin for pneumonia. When I arrived to see him he appeared to be weak, he was not in any respiratory distress. He did not have significant pain. Past Medical History Cardiac Medical History: Reports: None Pulmonary Medical History: Reports: None Endocrine Medical History: Reports: None Malignancy Medical History: Reports: None GI Medical History: Reports: Gastroesophageal Reflux Disease, Hepatitis - Alcoholic Psychiatric Medical History: Reports: Alcohol Dependency Denies: Depression Past Surgical History Past Surgical History: Reports: None Social History Smoking Status: Current Every Day Smoker Frequency of Alcohol Use: Heavy Hx Recreational Drug Use: No Drugs: None Hx Prescription Drug Abuse: No Family History Family History: Reviewed & Not Pertinent Parental Family History Reviewed: Yes Children Family History Reviewed: Yes Sibling(s) Family History Reviewed.: Yes Medication/Allergy Home Medications: No Home Medications 04/06/20 Allergies/Adverse Reactions: No Known Allergies Allergy (Verified 04/05/20 17:35) Review of Systems Constitutional: PRESENT: chills, fatigue, weakness Nose, Mouth, and Throat: ABSENT: sore throat Cardiovascular: PRESENT: dyspnea on exertion, edema - Generalized. ABSENT: chest pain, orthropnea Genitourinary: ABSENT: dysuria Musculoskeletal: ABSENT: deformity Integumentary: ABSENT: rash Neurological: ABSENT: abnormal gait, abnormal speech, confusion, dizziness, focal weakness, syncope Physical Exam Vital Signs: Temp Pulse Resp BP Pulse Ox 98.6 F 108 H 14 130/82 H 96 04/06/20 07:54 04/06/20 07:54 04/06/20 07:54 04/06/20 07:54 04/06/20 07:54 Intake & Output 04/05/20 04/06/20 04/07/20 06:59 06:59 06:59 Intake Total 1500 Balance 1500 Weight 83 kg General appearance: PRESENT: mild distress Head exam: PRESENT: atraumatic Eye exam: PRESENT: EOMI, PERRLA, scleral icterus. ABSENT: conjunctival injection Ear exam: ABSENT: bleeding Mouth exam: PRESENT: moist Throat exam: ABSENT: post pharyngeal erythema, tonsillar erythema Neck exam: ABSENT: JVD, lymphadenopathy, thyromegaly Respiratory exam: PRESENT: rhonchi Cardiovascular exam: PRESENT: RRR Pulses: PRESENT: normal femoral pulses, normal dorsalis pedis pul Vascular exam: PRESENT: normal capillary refill GI/Abdominal exam: PRESENT: other - Abdomen is slightly distended, nontender. Some degree of ascites but hard to tell. Extremities exam: PRESENT: pedal edema, +1 edema Musculoskeletal exam: PRESENT: ambulatory Neurological exam: PRESENT: alert, oriented to person, oriented to place, oriented to time, oriented to situation Skin exam: PRESENT: jaundice Results Laboratory Results: 04/06/20 07:50 04/05/20 04/05/20 04/05/20 18:45 18:45 18:45 WBC 20.4 H RBC 2.42 L Hgb 9.0 L Hct 26.1 L MCV 108 H MCH 37.4 H MCHC 34.7 RDW 15.5 H Plt Count 131 L Seg Neutrophils % Not Reportable Sodium 133.9 L Potassium 3.6 Chloride 102 Carbon Dioxide 30 Anion Gap 2 L BUN 14 Creatinine 0.69 Est GFR ( Amer) > 60 Glucose 116 H Lactic Acid Calcium 8.7 Phosphorus 3.0 Magnesium 1.9 Total Bilirubin 5.9 H AST 127 H Alkaline Phosphatase 275 H Ammonia 10.7 Total Protein 6.6 Albumin 2.8 L Lipase 617.4 H Urine Color Urine Appearance Urine pH Ur Specific Byers Urine Protein Urine Glucose (UA) Urine Ketones Urine Blood Urine Nitrite Ur Leukocyte Esterase Urine WBC (Auto) Urine RBC (Auto) 1204/05/20 04/06/20 18:45 18:45 01:44 WBC RBC Hgb Hct MCV MCH MCHC RDW Plt Count Seg Neutrophils % Sodium Potassium Chloride Carbon Dioxide Anion Gap BUN Creatinine Est GFR ( Amer) Glucose Lactic Acid 1.7 1.1 Calcium Phosphorus Magnesium Total Bilirubin AST Alkaline Phosphatase Ammonia Total Protein Albumin Lipase Urine Color HUSSEIN Urine Appearance SLIGHTLY-CLOUDY Urine pH 5.0 Ur Specific Byers 1.029 Urine Protein 30 H Urine Glucose (UA) NEGATIVE Urine Ketones NEGATIVE Urine Blood NEGATIVE Urine Nitrite NEGATIVE Ur Leukocyte Esterase NEGATIVE Urine WBC (Auto) 12 Urine RBC (Auto) 3 04/06/20 04/06/20 04/06/20 04:09 07:50 07:50 WBC RBC Hgb Hct MCV MCH MCHC RDW Plt Count Seg Neutrophils % Sodium 130.4 L Potassium 3.8 Chloride 101 Carbon Dioxide 27 Anion Gap 2 L BUN 13 Creatinine 0.67 Est GFR ( Amer) > 60 Glucose 88 Lactic Acid 1.1 1.3 Calcium 8.5 Phosphorus Magnesium Total Bilirubin 6.8 H AST 96 H Alkaline Phosphatase 191 H Ammonia Total Protein 5.8 L Albumin 2.4 L Lipase 242.8 Urine Color Urine Appearance Urine pH Ur Specific Byers Urine Protein Urine Glucose (UA) Urine Ketones Urine Blood Urine Nitrite Ur Leukocyte Esterase Urine WBC (Auto) Urine RBC (Auto) 04/05/20 18:45 Troponin I < 0.012 Impressions: Abdomen/Pelvis CT 04/05/20 00:00 IMPRESSION: 1. Developing bilateral pleural effusions, ascites and anasarca consistent with some volume overload and/or third spacing. 2. Improvement in the prior colitis with residual right-sided colitis most likely an infectious colitis but please correlate clinically. Chest X-Ray 04/05/20 17:42 IMPRESSION: 1. Since the prior study dated 03/29/2020, new interval finding of bibasilar opacities and some consolidation in the left lower lung zone may be on the basis of pneumonia. Trace bilateral pleural effusions. Is there any underlying history of COVID-19 disease? 2. Cardiomegaly since the prior study. Slight pulmonary vascular congestion. Assessment and Plan - Diagnosis (1) Pneumonia Qualifiers: Pneumonia type: due to unspecified organism Laterality: bilateral Lung location: lower lobe of lung Qualified Code(s): J18.9 - Pneumonia, unspecified organism Is this a current diagnosis for this admission?: Yes Plan: He was started on cefepime and vancomycin considering the fact that he was recently in the hospital. I am adding azithromycin. Blood cultures are pending. Sputum culture , he is not bringing up any mucus at this point. (2) Chest pain Qualifiers: Chest pain type: chest pain on breathing Qualified Code(s): R07.1 - Chest pain on breathing; R07.81 - Pleurodynia Is this a current diagnosis for this admission?: Yes Plan: Chest pain may be related to pneumonia but other etiologies pulmonary embolism cannot be excluded. (3) Elevated d-dimer Is this a current diagnosis for this admission?: Yes Plan: He is going to have a CT pulmonary angiogram. In case she has pulmonary em bolism we will decide what is the best approach to treat it. (4) Alcoholic hepatitis with ascites Is this a current diagnosis for this admission?: Yes Plan: He has alcoholic hepatitis treated with prednisone. On April 08 when he is on prednisone for 1 week the efficacy should be evaluated. If it is ineffective prednisone will be discontinued. He has ascites and some generalized edema. If he remains hemodynamically stable he may be started on diuretics soon. (5) Acute colitis Is this a current diagnosis for this admission?: Yes Plan: It is a CT finding. Recent colonoscopy was unremarkable. (6) Pancreatic insufficiency Is this a current diagnosis for this admission?: Yes Plan: Continue enzyme supplementation. He has elevated lipase of uncertain etiology. It is going to be repeated. (7) Alcohol abuse Is this a current diagnosis for this admission?: Yes Plan: He did not drink any alcohol after being discharged from the hospital. (8) Hyponatremia Is this a current diagnosis for this admission?: Yes Plan: He has mild hyponatremia, it seems to be chronic. - Plan Summary Summary: He was admitted with clinical signs of pneumonia, being treated with broad- spectrum antibiotics considering recent hospitalization. Pulmonary embolism cannot be entirely ruled out, he is going for a CT pulmonary angiogram. He has generalized edema, once he remains stable hemodynamically he can be started on diuretics. At present he is taking prednisone for alcoholic hepatitis, it will be continued but needs reevaluation. - Time Time Spent with patient: 35 or more minutes Medications reviewed and adjusted accordingly: Yes Anticipated Discharge Disposition: Home, Self Care Anticipated Discharge Timeframe: within 72 hours - Inpatient Certification Based on my medical assessment, after consideration of the patient's comorbidities, presenting symptoms, or acuity I expect that the services needed warrant INPATIENT care.: Yes I certify that my determination is in accordance with my understanding of Medicare's requirements for reasonable and necessary INPATIENT services [42 CFR 412.3e].: Yes Medical Necessity: Failure to Improve With Outpatient Therapy, Need For Continuous Telemetry Monitoring, Need for IV Antibiotics, Risk of Diagnosis Which Will Require Inpatient Eval/Care/Monitoring
[2020-04-06] MEDS ORDERED: CEFEPIME 2 GM/D5W RTU 2 GM/50 ML RTUPB IV SCH (10:00)
[2020-04-06] MEDS ORDERED: VANCOMYCIN HCL 1,000 MG in DEXTROSE 5%-WATER 250 ML IV ONE (10:00)
[2020-04-06] MEDS: THIAMINE HCL 100 MG TABLET PO SCH (10:28)
[2020-04-06] MEDS: MULTIVITAMIN TABLET PO SCH (10:28)
[2020-04-06] MEDS: PREDNISONE 20 MG TABLET PO SCH (10:28)
[2020-04-06] MEDS: LIPASE/PROTEASE/AMYLASE 1 CAP CAPSULE.DR PO SCH ×2 (10:28→16:33)
--- NOTE | 2020-04-06 10:33 | RADIOLOGY REPORT (SQ) ---
EXAM DESCRIPTION: CTA CHEST IMAGES COMPLETED DATE/TIME: 04/06/2020 10:19 am REASON FOR STUDY: r/o pulmonary embolism COMPARISON: None. TECHNIQUE: CT scan of the chest performed using helical scanning technique with dynamic intravenous contrast injection. Images reviewed with lung, soft tissue and bone windows. Reconstructed coronal and sagittal MPR images reviewed. Additional 3 dimensional post-processing performed to develop Maximal Intensity Projection images ([place] P). All images stored on PACS. All CT scanners at this facility use dose modulation, iterative reconstruction, and/or weight based d osing when appropriate to reduce radiation dose to as low as reasonably achievable (ALARA). [facility]: Dose Right [facility]: CareDose [facility]: Dose Right [facility]: Teradose 4D [facility]: Vibes CONTRAST TYPE AND DOSE: contrast/concentration: Isovue 350.00 mmol/ml; Total Contrast Delivered: 75. 0 ml; Total Saline Delivered: 40.0 ml Contrast bolus adequate for pulmonary arteries and aorta. RENAL FUNCTION: BUN 14 creatinine 0.9. RADIATION DOSE: CT Rad equipment meets quality standard of care and radiation dose reduction techniq ues were employed. CTDIvol: 10.1 - 31.0 mGy. DLP: 348 mGy-cm. . LIMITATIONS: Motion artifact. Suboptimal contrast opacification of the pulmonary arteries. FINDINGS: LUNGS AND PLEURA: Lower lobe consolidations, left greater than right. Bilateral pleural e ffusions. AORTA AND GREAT VESSELS: No aneurysm. No dissection. HEART: No pericardial effusion. No significant coronary artery calcifications. PULMONARY ARTERIES: No emboli visualized in the main pulmonary arteries or the segmental branches. HILAR AND MEDIASTINAL STRUCTURES: No identified masses or abnormal nodes. HARDWARE: None in the chest. UPPER ABDOMEN: Ascites. Limited exam. THYROID AND OTHER SOFT TISSUES: No masses. No adenopathy. BONES: No acute or significant finding. 3D MIPS: Confirm above findings. OTHER: No other significant finding. IMPRESSION: 1. LIMITED STUDY. NO LARGE PULMONARY EMBOLI VISUALIZED. 2. BILATERAL PLEURAL EFFUSIONS AND LOWER LOBE CONSOLIDATIONS, LEFT GREATER THAN RIGHT. 3. ASCITES. COMMENT: Quality ID # [id number]: Final reports with documentation of one or more dose reduction techniques (e.g., Automated exposure control, adjustment of the mA and/or kV according to patient size, use of iterative reconstruction technique) TECHNICAL DOCUMENTATION: JOB ID: [id number] [employer]- All Rights Reserved Reading location - IP/workstation name: [email or web address]
[2020-04-06] MEDS: CEFEPIME HCL 2 GM in DEXTROSE 5%-WATER 50 ML IV SCH ×2 (11:21→21:44)
[2020-04-06 12:22] LABS: URINE SODIUM 18 mmol/L (30-90)
[2020-04-06 12:30] LABS: OSMOLALITY,URINE 708 mOsm/kg (300-900)
[2020-04-06] MEDS ORDERED: ALBUMIN HUMAN 12.5 GM/50 ML RTUINJ IV SCH (15:00)
[2020-04-06] MEDS ORDERED: MORPHINE SULFATE 10 MG/ML INJ IV PRN (15:38)
--- NOTE | 2020-04-06 15:57 | Progress Note ---
Provider Note Provider Note: Evaluated patient on morning rounds. Remains tachycardic. Blood pressure stable. Due to saturation within normal limits on room air. Notes by lateral pain that radiates into abdomen, with the left side being worse than the right. He tells me that his abdominal swelling and lower extremity edema have worsened since last here 04/04. I have ordered paracentesis with albumin therapy to follow, this is scheduled for tomorrow. Denies shortness of breath. CT chest notable for bilateral pleural effusions, lower lobe consolidations, without emboli visualized, ascites noted. CXR 03/29 reviewed, without signs of pleural effusion at that time. Will diurese with furosemide and spironolactone. Follow up BMP/CBC in the a.m. Cnt broad spectrum abx. Cnt enzyme supplementation. Cnt Prednisone for alcoholic hepatitis, On April 08 when he is on prednisone for 1 week the efficacy should be evaluated.
[2020-04-06] MEDS: SPIRONOLACTONE 25 MG TABLET PO SCH (16:32)
[2020-04-06] MEDS: FUROSEMIDE 40 MG TABLET PO SCH (16:33)
--- NOTE | 2020-04-06 19:04 | EKG REPORT ---
SEVERITY:- OTHERWISE NORMAL ECG - SINUS TACHYCARDIA : Confirmed by: Orlin Rosas 06-Apr-2020 19:03:41
[2020-04-06] MEDS ORDERED: AZITHROMYCIN INJ 500 MG VIAL IV ONE (22:47)
[2020-04-06] MEDS: AZITHROMYCIN 500 MG in DEXTROSE 5%-WATER 250 ML IV SCH (23:10)
[2020-04-07] MEDS: VANCOMYCIN HCL 1,250 MG in DEXTROSE 5%-WATER 250 ML IV SCH ×3 (01:18→17:26)
[2020-04-07] MEDS ORDERED: ALBUMIN HUMAN 50 GM/200 ML RTUINJ IV PRN (05:00)
[2020-04-07] MEDS: PANTOPRAZOLE SODIUM 40 MG TABLET.DR PO SCH ×2 (05:48→17:25)
[2020-04-07] MEDS: ACETAMINOPHEN 325 MG TABLET PO PRN ×3 (05:52→19:44)
[2020-04-07] MEDS ORDERED: PHARMACY COMMUNICATION ORDER MC ONE (07:30)
[2020-04-07] MEDS ORDERED: INFLUENZA QUAD (6MOS+) 2020-21 VAC 0.5 ML SYR IM ONE (08:00)
[2020-04-07] MEDS: THIAMINE HCL 100 MG TABLET PO SCH (09:18)
[2020-04-07] MEDS: FUROSEMIDE 40 MG TABLET PO SCH (09:18)
[2020-04-07] MEDS: SPIRONOLACTONE 25 MG TABLET PO SCH (09:18)
[2020-04-07] MEDS: PREDNISONE 20 MG TABLET PO SCH (09:18)
[2020-04-07] MEDS: MULTIVITAMIN TABLET PO SCH (09:18)
[2020-04-07] MEDS: LIPASE/PROTEASE/AMYLASE 1 CAP CAPSULE.DR PO SCH ×2 (09:19→17:25)
[2020-04-07 09:32] LABS: ABSOLUTE BASOPHILS # (AUTO) 0.1 10^3/uL (0.0-0.2); ABSOLUTE LYMPHOCYTES (AUTO) 3.2 10^3/uL (0.5-4.7); ABSOLUTE MONOCYTES (AUTO) 1.3 10^3/uL (0.1-1.4); ABSOLUTE NEUT (AUTO) 8.9 10^3/uL (1.7-8.2); BASOPHILS % (AUTO) 0.6 % (0-2); EOSINOPHILS % (AUTO) 0.3 % (0-6); HEMATOCRIT 26.2 % (37.9-51.0); HEMOGLOBIN 9.1 g/dL (13.5-17.0); LYMPHOCYTES % (AUTO) 23.5 % (13-45); MEAN CORPUSCULAR HEMOGLOBIN 37.8 pg (27.0-33.4); MEAN CORPUSCULAR HGB CONC 34.5 g/dL (32.0-36.0); MEAN CORPUSCULAR VOLUME 110 fl (80-97); MONOCYTES % (AUTO) 9.7 % (3-13); RED BLOOD COUNT 2.39 10^6/uL (4.35-5.55); SEGMENTED NEUTROPHILS % (AUTO) 65.9 % (42-78); TOTAL CELLS COUNTED % (AUTO) 100 %; WHITE BLOOD COUNT 13.5 10^3/uL (4.0-10.5)
[2020-04-07 09:41] LABS: INTERNATIONAL RATION (INR) 1.84; PROTHROMBIN TIME 21.3 SEC (11.4-15.4)
[2020-04-07 09:51] LABS: ALKALINE PHOSPHATASE 192 U/L (38-126); ANION GAP 6 (5-19); ASPARTATE AMINO TRANSFERASE 102 U/L (17-59); BLOOD UREA NITROGEN 11 mg/dL (7-20); CALCIUM 8.9 mg/dL (8.4-10.2); CARBON DIOXIDE 27 mmol/L (22-30); CHLORIDE 101 mmol/L (98-107); GLUCOSE 101 mg/dL (75-110); POTASSIUM 3.7 mmol/L (3.6-5.0); TOTAL PROTEIN 7.1 g/dL (6.3-8.2)
[2020-04-07 10:07] LABS: PLATELET COUNT 112 10^3/uL (150-450)
[2020-04-07 12:06] LABS: FLUID COLOR YELLOW; FLUID SOURCE ASCITES; FLUID TYPE PERITONEAL
[2020-04-07 12:07] LABS: FLUID APPEARANCE CLEAR; FLUID VISCOSITY SLIGHTLY VISCOUS
--- NOTE | 2020-04-07 12:09 | RADIOLOGY REPORT (SQ) ---
EXAM DESCRIPTION: U/S ABD PARACENTESIS IMAGES COMPLETED DATE/TIME: 04/07/2020 11:21 am REASON FOR STUDY: ascites COMPARISON: None. RADIATION DOSE: None LIMITATIONS: None. PROCEDURE: Procedure, risks, benefit, and alternative explained to patient who then gave written con sent. The right lower abdominal wall marked using ultrasound guidance. A time-out was called for co rrect marking verification. Abdomen prepped and draped using sterile technique. Local anesthesia ach ieved using 8 ml of 1% lidocaine injection. A 6fr Bkil-S-Yabjeppw set was introduced into the perito abida cavity. Fluid was drained. The catheter was removed and entry site was covered with sterile ba ndage. No immediate complications noted. Images acquired during the procedure were stored on PACS. FINDINGS: ENTRY SITE: right lower quadrant. FLUID VOLUME: 2150 mL FLUID ANALYSIS: Clear straw-colored fluid OTHER: Fluid sent to the lab for testing. IMPRESSION: SUCCESSFUL ULTRASOUND GUIDED PARACENTESIS. COMMENT: Patient medication list reviewed:Yes- Quality ID# [id number]:Eligible professional attests to docu menting in the medical record they obtained, updated, or reviewed the patient's current medications. TECHNICAL DOCUMENTATION: JOB ID: [id number] 2010 [employer]- All Rights Reserved Reading location - IP/workstation name: [email or web address] [id number]
[2020-04-07] MEDS: CEFEPIME HCL 2 GM in DEXTROSE 5%-WATER 50 ML IV SCH ×2 (14:27→22:14)
--- NOTE | 2020-04-07 18:34 | PDOC PROGRESS REPORT ---
Subjective Date:: 04/07/20 Subjective:: No adverse events overnight. No new complaints. He said he still has some swel ling in his legs. He does not really have much of an appetite. His breathing feels comfortable. He had a paracentesis and a little over 2100 mL were taken off. Reason For Visit: SEPSIS ,PNEMONIA Physical Exam Vital Signs: Temp Pulse Resp BP Pulse Ox 96.9 F L 101 H 17 113/71 97 04/07/20 16:00 04/07/20 16:00 04/07/20 16:00 04/07/20 16:00 04/07/20 16:00 Intake & Output 04/06/20 04/07/20 04/08/20 06:59 06:59 06:59 Intake Total 1500 1150 1710 Output Total 725 Balance 6047 726 2536 Weight 83 kg 91.1 kg General appearance: PRESENT: no acute distress, cooperative, disheveled Eye exam: PRESENT: scleral icterus Respiratory exam: PRESENT: clear to auscultation maddy, symmetrical, unlabored. ABSENT: accessory muscle use, chest wall tenderness, crackles, prolonged expiratory phas, rhonchi, tachypnea, wheezes Cardiovascular exam: PRESENT: RRR, +S1, +S2 Pulses: PRESENT: normal carotid pulses Vascular exam: PRESENT: normal capillary refill GI/Abdominal exam: PRESENT: normal bowel sounds, soft. ABSENT: distended, guarding, rebound, tenderness Extremities exam: PRESENT: pedal edema, +2 edema. ABSENT: clubbing Musculoskeletal exam: ABSENT: deformity Neurological exam: PRESENT: awake, oriented to person, oriented to place, oriented to situation Psychiatric exam: PRESENT: flat affect Skin exam: PRESENT: dry, warm Results Laboratory Results: 04/07/20 08:05 04/07/20 08:05 04/07/20 04/07/20 04/07/20 08:05 08:05 10:51 WBC 13.5 H RBC 2.39 L Hgb 9.1 L Hct 26.2 L MCV 110 H MCH 37.8 H MCHC 34.5 RDW 16.0 H Plt Count 112 L Seg Neutrophils % 65.9 Sodium 134.0 L Potassium 3.7 Chloride 101 Carbon Dioxide 27 Anion Gap 6 BUN 11 Creatinine 0.63 Est GFR ( Amer) > 60 Glucose 101 Calcium 8.9 Total Bilirubin 7.0 H AST 102 H Alkaline Phosphatase 192 H Total Protein 7.1 Albumin 3.0 L Fluid Type PERITONEAL Fluid Source ASCITES Fluid Color YELLOW Fluid Appearance CLEAR Fluid Viscosity SLIGHTLY VISCOUS Fluid WBC 46 Fluid RBC 135 04/05/20 18:45 Troponin I < 0.012 Impressions: Abdomen/Pelvis CT 04/05/20 00:00 IMPRESSION: 1. Developing bilateral pleural effusions, ascites and anasarca consistent with some volume overload and/or third spacing. 2. Improvement in the prior colitis with residual right-sided colitis most likely an infectious colitis but please correlate clinically. Chest X-Ray 04/05/20 17:42 IMPRESSION: 1. Since the prior study dated 03/29/2020, new interval finding of bibasilar opacities and some consolidation in the left lower lung zone may be on the basis of pneumonia. Trace bilateral pleural effusions. Is there any underlying history of COVID-19 disease? 2. Cardiomegaly since the prior study. Slight pulmonary vascular congestion. Chest/Abdomen CTA 04/06/20 00:00 IMPRESSION: 1. LIMITED STUDY. NO LARGE PULMONARY EMBOLI VISUALIZED. 2. BILATERAL PLEURAL EFFUSIONS AND LOWER LOBE CONSOLIDATIONS, LEFT GREATER THAN RIGHT. 3. ASCITES. Paracentesis Ultrasound 04/07/20 00:00 IMPRESSION: SUCCESSFUL ULTRASOUND GUIDED PARACENTESIS. Assessment and Plan - Diagnosis (1) Alcoholic hepatitis with ascites Is this a current diagnosis for this admission?: Yes (2) Elevated bilirubin Is this a current diagnosis for this admission?: Yes (3) Left lower lobe pneumonia Qualifiers: Pneumonia type: due to unspecified organism Qualified Code(s): J18.9 - Pneumonia, unspecified organism Is this a current diagnosis for this admission?: Yes (4) Alcohol dependence Qualifiers: Substance use status: other alcohol-induced disorder Qualified Code(s): F10.288 - Alcohol dependence with other alcohol-induced disorder Is this a current diagnosis for this admission?: Yes (5) Hyponatremia Is this a current diagnosis for this admission?: Yes (6) Tobacco dependence Is this a current diagnosis for this admission?: Yes - Plan Summary Summary: He was admitted with clinical signs of pneumonia, being treated with broad- spectrum antibiotics considering recent hospitalization. CTA was negative for PE. He has generalized edema, he had paracentesis and has been started on diuretics. At present he is taking prednisone for alcoholic hepatitis, it will be continued but needs reevaluation. Bilirubin is a little elevated from yesterday but not very much, liver enzymes remain stable. If he does not show much improvement will consider switching him to Solu-Medrol and then sending him home on prednisolone because prednisone must be converted by the liver to prednisolone. - Time Time Spent with patient: 15-24 minutes Anticipated Discharge Disposition: Unknown Anticipated Discharge Timeframe: Unknown
[2020-04-07] MEDS: AZITHROMYCIN 500 MG in DEXTROSE 5%-WATER 250 ML IV SCH (23:18)
[2020-04-08] MEDS: VANCOMYCIN HCL 1,250 MG in DEXTROSE 5%-WATER 250 ML IV SCH ×4 (01:34→18:26)
[2020-04-08] MEDS: PANTOPRAZOLE SODIUM 40 MG TABLET.DR PO SCH ×2 (05:20→17:06)
[2020-04-08] MEDS: ACETAMINOPHEN 325 MG TABLET PO PRN ×3 (05:21→18:29)
[2020-04-08] MEDS: LIPASE/PROTEASE/AMYLASE 1 CAP CAPSULE.DR PO SCH ×2 (07:59→17:06)
[2020-04-08] MEDS: SPIRONOLACTONE 25 MG TABLET PO SCH (10:19)
[2020-04-08] MEDS: PREDNISONE 20 MG TABLET PO SCH (10:20)
[2020-04-08] MEDS: THIAMINE HCL 100 MG TABLET PO SCH (10:20)
[2020-04-08] MEDS: MULTIVITAMIN TABLET PO SCH (10:20)
[2020-04-08] MEDS: FUROSEMIDE 40 MG TABLET PO SCH (10:21)
[2020-04-08] MEDS: CEFEPIME HCL 2 GM in DEXTROSE 5%-WATER 50 ML IV SCH ×2 (10:25→22:05)
[2020-04-08] MEDS ORDERED: METHYLPREDNISOLONE INJ 40 MG/1 ML SDV IV ONE (11:40)
--- NOTE | 2020-04-08 17:14 | PDOC PROGRESS REPORT ---
Subjective Date:: 04/08/20 Subjective:: No adverse events overnight. No new complaints. Vital signs been stable. Appe tite is been poor. Reason For Visit: SEPSIS ,PNEMONIA Physical Exam Vital Signs: Temp Pulse Resp BP Pulse Ox 98.0 F 101 H 16 118/56 L 96 04/08/20 15:28 04/08/20 15:28 04/08/20 15:28 04/08/20 15:28 04/08/20 15:28 Intake & Output 04/07/20 04/08/20 04/09/20 06:59 06:59 06:59 Intake Total 1150 2460 980 Output Total 725 300 Balance 425 2160 980 Weight 91.1 kg 88.8 kg General appearance: PRESENT: no acute distress, cooperative, disheveled Eye exam: PRESENT: scleral icterus Respiratory exam: PRESENT: clear to auscultation maddy, symmetrical, unlabored. ABSENT: accessory muscle use, chest wall tenderness, crackles, prolonged expiratory phas, rhonchi, tachypnea, wheezes Cardiovascular exam: PRESENT: RRR, +S1, +S2 Pulses: PRESENT: normal carotid pulses Vascular exam: PRESENT: normal capillary refill GI/Abdominal exam: PRESENT: normal bowel sounds, soft. ABSENT: distended, guarding, rebound, tenderness Extremities exam: PRESENT: pedal edema, +2 edema. ABSENT: clubbing Musculoskeletal exam: ABSENT: deformity Neurological exam: PRESENT: awake, oriented to person, oriented to place, oriented to situation Psychiatric exam: PRESENT: flat affect Skin exam: PRESENT: dry, warm Results Laboratory Results: 04/07/20 08:05 04/07/20 08:05 04/05/20 18:45 Troponin I < 0.012 Impressions: Abdomen/Pelvis CT 04/05/20 00:00 IMPRESSION: 1. Developing bilateral pleural effusions, ascites and anasarca consistent with some volume overload and/or third spacing. 2. Improvement in the prior colitis with residual right-sided colitis most likely an infectious colitis but please correlate clinically. Chest X-Ray 04/05/20 17:42 IMPRESSION: 1. Since the prior study dated 03/29/2020, new interval finding of bibasilar opacities and some consolidation in the left lower lung zone may be on the basis of pneumonia. Trace bilateral pleural effusions. Is there any underl giorgio history of COVID-19 disease? 2. Cardiomegaly since the prior study. Slight pulmonary vascular congestion. Chest/Abdomen CTA 04/06/20 00:00 IMPRESSION: 1. LIMITED STUDY. NO LARGE PULMONARY EMBOLI VISUALIZED. 2. BILATERAL PLEURAL EFFUSIONS AND LOWER LOBE CONSOLIDATIONS, LEFT GREATER THAN RIGHT. 3. ASCITES. Paracentesis Ultrasound 04/07/20 00:00 IMPRESSION: SUCCESSFUL ULTRASOUND GUIDED PARACENTESIS. Assessment and Plan - Diagnosis (1) Alcoholic hepatitis with ascites Is this a current diagnosis for this admission?: Yes (2) Elevated bilirubin Is this a current diagnosis for this admission?: Yes (3) Left lower lobe pneumonia Qualifiers: Pneumonia type: due to unspecified organism Qualified Code(s): J18.9 - Pneumonia, unspecified organism Is this a current diagnosis for this admission?: Yes (4) Alcohol dependence Qualifiers: Substance use status: other alcohol-induced disorder Qualified Code(s): F10.288 - Alcohol dependence with other alcohol-induced disorder Is this a current diagnosis for this admission?: Yes (5) Hyponatremia Is this a current diagnosis for this admission?: Yes (6) Tobacco dependence Is this a current diagnosis for this admission?: Yes - Plan Summary Summary: He was admitted with clinical signs of pneumonia, being treated with broad- spectrum antibiotics considering recent hospitalization. CTA was negative for PE. He has generalized edema, he had paracentesis and has been started on diuretics. Labs that we associate with his liver have not really improved very much since he started his treatment with prednisone. I think that the predn isone is not working for him, because his liver is not able to convert it to prednisolone. We do not have prednisolone in his hospital. Therefore I am going to put him on some IV Solu-Medrol. We will treat him for a few days and track his indicators of liver function. If he shows response to this, he can be discharged home on oral prednisolone. - Time Time Spent with patient: 15-24 minutes Anticipated Discharge Disposition: Unknown Anticipated Discharge Timeframe: Unknown
[2020-04-08] MEDS: METHYLPREDNISOLONE INJ 40 MG/1 ML SDV IV SCH (22:05)
[2020-04-08] MEDS: AZITHROMYCIN 500 MG in DEXTROSE 5%-WATER 250 ML IV SCH (22:52)
[2020-04-09] MEDS: VANCOMYCIN HCL 1,250 MG in DEXTROSE 5%-WATER 250 ML IV SCH ×5 (01:22→23:58)
[2020-04-09] MEDS: PANTOPRAZOLE SODIUM 40 MG TABLET.DR PO SCH ×2 (05:13→17:26)
[2020-04-09] MEDS: LIPASE/PROTEASE/AMYLASE 1 CAP CAPSULE.DR PO SCH ×2 (08:10→17:26)
[2020-04-09] MEDS: CEFEPIME HCL 2 GM in DEXTROSE 5%-WATER 50 ML IV SCH ×2 (09:27→21:01)
[2020-04-09] MEDS: METHYLPREDNISOLONE INJ 40 MG/1 ML SDV IV SCH ×2 (09:28→21:00)
[2020-04-09] MEDS: SPIRONOLACTONE 25 MG TABLET PO SCH (09:29)
[2020-04-09] MEDS: MULTIVITAMIN TABLET PO SCH (09:29)
[2020-04-09] MEDS: THIAMINE HCL 100 MG TABLET PO SCH (09:29)
[2020-04-09] MEDS: FUROSEMIDE 40 MG TABLET PO SCH (09:29)
[2020-04-09 10:54] LABS: INTERNATIONAL RATION (INR) 1.53; PROTHROMBIN TIME 18.5 SEC (11.4-15.4)
[2020-04-09 10:58] LABS: ALBUMIN 2.9 g/dL (3.5-5.0); ALKALINE PHOSPHATASE 211 U/L (38-126); ANION GAP 7 (5-19); ASPARTATE AMINO TRANSFERASE 71 U/L (17-59); BILIRUBIN,DIRECT 1.3 mg/dL (0.0-0.4); BILIRUBIN,TOTAL 4.7 mg/dL (0.2-1.3); BLOOD UREA NITROGEN 11 mg/dL (7-20); CALCIUM 9.1 mg/dL (8.4-10.2); CARBON DIOXIDE 24 mmol/L (22-30); CHLORIDE 104 mmol/L (98-107); GLUCOSE 154 mg/dL (75-110); POTASSIUM 4.1 mmol/L (3.6-5.0); TOTAL PROTEIN 6.6 g/dL (6.3-8.2)
--- NOTE | 2020-04-09 16:21 | PDOC PROGRESS REPORT ---
Subjective Date:: 04/09/20 Subjective:: No adverse events overnight. No new complaints. Vital signs been stable. Appe tite is been poor. Reason For Visit: SEPSIS ,PNEMONIA Physical Exam Vital Signs: Temp Pulse Resp BP Pulse Ox 98.4 F 92 20 134/68 H 100 04/09/20 12:05 04/09/20 12:05 04/09/20 12:05 04/09/20 12:05 04/09/20 12:05 Intake & Output 04/08/20 04/09/20 04/10/20 06:59 06:59 06:59 Intake Total 2460 2440 630 Output Total 300 425 Balance 2160 2440 205 Weight 88.8 kg 88.8 kg General appearance: PRESENT: no acute distress, cooperative, disheveled Eye exam: PRESENT: scleral icterus Respiratory exam: PRESENT: clear to auscultation maddy, symmetrical, unlabored. ABSENT: accessory muscle use, chest wall tenderness, crackles, prolonged expiratory phas, rhonchi, tachypnea, wheezes Cardiovascular exam: PRESENT: RRR, +S1, +S2 Pulses: PRESENT: normal carotid pulses Vascular exam: PRESENT: normal capillary refill GI/Abdominal exam: PRESENT: normal bowel sounds, soft. ABSENT: distended, guarding, rebound, tenderness Extremities exam: PRESENT: pedal edema, +2 edema. ABSENT: clubbing Musculoskeletal exam: ABSENT: deformity Neurological exam: PRESENT: awake, oriented to person, oriented to place, oriented to situation Psychiatric exam: PRESENT: flat affect Skin exam: PRESENT: dry, warm Results Laboratory Results: 04/07/20 08:05 04/09/20 10:19 04/09/20 10:19 Sodium 135.4 L Potassium 4.1 Chloride 104 Carbon Dioxide 24 Anion Gap 7 BUN 11 Creatinine 0.61 Est GFR ( Amer) > 60 Glucose 154 H Calcium 9.1 Total Bilirubin 4.7 H AST 71 H Alkaline Phosphatase 211 H Total Protein 6.6 Albumin 2.9 L 04/05/20 18:45 Troponin I < 0.012 Impressions: Abdomen/Pelvis CT 04/05/20 00:00 IMPRESSION: 1. Developing bilateral pleural effusions, ascites and anasarca consistent with some volume overload and/or third spacing. 2. Improvement in the prior colitis with residual right-sided colitis most likely an infectious colitis but please correlate clinically. Chest X-Ray 04/05/20 17:42 IMPRESSION: 1. Since the prior study dated 03/29/2020, new interval finding of bibasilar opacities and some consolidation in the left lower lung zone may be on the basis of pneumonia. Trace bilateral pleural effusions. Is there any underlying history of COVID-19 disease? 2. Cardiomegaly since the prior study. Slight pulmonary vascular congestion. Chest/Abdomen CTA 04/06/20 00:00 IMPRESSION: 1. LIMITED STUDY. NO LARGE PULMONARY EMBOLI VISUALIZED. 2. BILATERAL PLEURAL EFFUSIONS AND LOWER LOBE CONSOLIDATIONS, LEFT GREATER THAN RIGHT. 3. ASCITES. Paracentesis Ultrasound 04/07/20 00:00 IMPRESSION: SUCCESSFUL ULTRASOUND GUIDED PARACENTESIS. Assessment and Plan - Diagnosis (1) Alcoholic hepatitis with ascites Is this a current diagnosis for this admission?: Yes (2) Elevated bilirubin Is this a current diagnosis for this admission?: Yes (3) Left lower lobe pneumonia Qualifiers: Pneumonia type: due to unspecified organism Qualified Code(s): J18.9 - Pneumonia, unspecified organism Is this a current diagnosis for this admission?: Yes (4) Alcohol dependence Qualifiers: Substance use status: other alcohol-induced disorder Qualified Code(s): F10.288 - Alcohol dependence with other alcohol-induced disorder Is this a current diagnosis for this admission?: Yes (5) Hyponatremia Is this a current diagnosis for this admission?: Yes (6) Tobacco dependence Is this a current diagnosis for this admission?: Yes - Plan Summary Summary: He was admitted with clinical signs of pneumonia, being treated with broad- spectrum antibiotics considering recent hospitalization. CTA was negative for PE. He has generalized edema, he had paracentesis and has been started on diuretics. His bilirubin and INR have both come down since yesterday. I think the Solu-Medrol is having an effect. Lavinia continue this for a few more days with the hopes that we can discharge him home on prednisolone. - Time Time Spent with patient: 15-24 minutes Anticipated Discharge Disposition: Home, Self Care Anticipated Discharge Timeframe: within 72 hours
[2020-04-09] MEDS: AZITHROMYCIN 500 MG in DEXTROSE 5%-WATER 250 ML IV SCH (21:42)
[2020-04-10] MEDS: VANCOMYCIN HCL 1,250 MG in DEXTROSE 5%-WATER 250 ML IV SCH ×3 (06:27→17:40)
[2020-04-10] MEDS: PANTOPRAZOLE SODIUM 40 MG TABLET.DR PO SCH ×2 (06:27→17:36)
[2020-04-10 07:44] LABS: INTERNATIONAL RATION (INR) 1.56; PROTHROMBIN TIME 18.8 SEC (11.4-15.4)
[2020-04-10 07:48] LABS: ALBUMIN 2.8 g/dL (3.5-5.0); ALKALINE PHOSPHATASE 280 U/L (38-126); ASPARTATE AMINO TRANSFERASE 76 U/L (17-59); BILIRUBIN,DIRECT 1.1 mg/dL (0.0-0.4); BILIRUBIN,TOTAL 3.9 mg/dL (0.2-1.3); BLOOD UREA NITROGEN 12 mg/dL (7-20); CALCIUM 9.2 mg/dL (8.4-10.2); CARBON DIOXIDE 29 mmol/L (22-30); GLUCOSE 100 mg/dL (75-110); POTASSIUM 4.1 mmol/L (3.6-5.0); TOTAL PROTEIN 6.3 g/dL (6.3-8.2)
[2020-04-10 07:49] LABS: VANCOMYCIN,TROUGH 18.2 ug/mL (5.0-20.0)
[2020-04-10 07:53] LABS: CHLORIDE 104 mmol/L (98-107)
[2020-04-10 07:59] LABS: ANION GAP 3 (5-19)
[2020-04-10] MEDS: SPIRONOLACTONE 25 MG TABLET PO SCH (09:14)
[2020-04-10] MEDS: CEFEPIME HCL 2 GM in DEXTROSE 5%-WATER 50 ML IV SCH ×2 (09:14→21:03)
[2020-04-10] MEDS: MULTIVITAMIN TABLET PO SCH (09:14)
[2020-04-10] MEDS: LIPASE/PROTEASE/AMYLASE 1 CAP CAPSULE.DR PO SCH ×2 (09:14→17:36)
[2020-04-10] MEDS: THIAMINE HCL 100 MG TABLET PO SCH (09:14)
[2020-04-10] MEDS: FUROSEMIDE 40 MG TABLET PO SCH (09:14)
[2020-04-10] MEDS: METHYLPREDNISOLONE INJ 40 MG/1 ML SDV IV SCH ×2 (09:14→21:04)
--- NOTE | 2020-04-10 13:15 | RADIOLOGY REPORT (SQ) ---
EXAM DESCRIPTION: U/S ABDOMEN LIMITED W/O DOP IMAGES COMPLETED DATE/TIME: 04/10/2020 12:43 pm REASON FOR STUDY: need entire abdomen evaluated for ascites COMPARISON: None. TECHNIQUE: Limited Static and real time quijano scale imaging performed of the 4 abdominal quadrants an d the midline. LIMITATIONS: None. FINDINGS: ASCITES: Ascites is noted throughout all 4 quadrants. 1041.1 cc right upper quadrant 289.8 cc right lower quadrant 576.8 cc left lower quadrant 517.9 cc left upper quadrant OTHER: No other significant finding. IMPRESSION: Significant ascites throughout the abdomen as above. Most notable in the right upper qu adrant. TECHNICAL DOCUMENTATION: JOB ID: [id number] 2010 [email or web address]- All Rights Reserved Reading location - IP/workstation name: [email or web address]
[2020-04-10] MEDS: AZITHROMYCIN 500 MG in DEXTROSE 5%-WATER 250 ML IV SCH (21:47)
[2020-04-11] MEDS: VANCOMYCIN HCL 1,250 MG in DEXTROSE 5%-WATER 250 ML IV SCH ×5 (00:09→23:39)
[2020-04-11] MEDS: PANTOPRAZOLE SODIUM 40 MG TABLET.DR PO SCH ×2 (06:04→16:11)
[2020-04-11 06:24] LABS: INTERNATIONAL RATION (INR) 1.68; PROTHROMBIN TIME 19.9 SEC (11.4-15.4)
[2020-04-11 06:52] LABS: ALBUMIN 2.6 g/dL (3.5-5.0); ALKALINE PHOSPHATASE 247 U/L (38-126); ASPARTATE AMINO TRANSFERASE 75 U/L (17-59); BILIRUBIN,DIRECT 1.1 mg/dL (0.0-0.4); BILIRUBIN,TOTAL 4.1 mg/dL (0.2-1.3); BLOOD UREA NITROGEN 11 mg/dL (7-20); CARBON DIOXIDE 29 mmol/L (22-30); CHLORIDE 103 mmol/L (98-107); GLUCOSE 114 mg/dL (75-110); TOTAL PROTEIN 6.3 g/dL (6.3-8.2)
[2020-04-11 06:55] LABS: ANION GAP 4 (5-19)
[2020-04-11] MEDS: CEFEPIME HCL 2 GM in DEXTROSE 5%-WATER 50 ML IV SCH ×2 (09:52→21:23)
[2020-04-11] MEDS: SPIRONOLACTONE 25 MG TABLET PO SCH (09:53)
[2020-04-11] MEDS: MULTIVITAMIN TABLET PO SCH (09:53)
[2020-04-11] MEDS: METHYLPREDNISOLONE INJ 40 MG/1 ML SDV IV SCH ×2 (09:53→21:24)
[2020-04-11] MEDS: LIPASE/PROTEASE/AMYLASE 1 CAP CAPSULE.DR PO SCH ×2 (09:54→16:11)
[2020-04-11] MEDS: FUROSEMIDE 40 MG TABLET PO SCH (09:54)
[2020-04-11] MEDS: THIAMINE HCL 100 MG TABLET PO SCH (09:54)
--- NOTE | 2020-04-11 15:42 | RADIOLOGY REPORT (SQ) ---
EXAM DESCRIPTION: U/S ABD PARACENTESIS IMAGES COMPLETED DATE/TIME: 04/11/2020 2:45 pm REASON FOR STUDY: ascites COMPARISON None. LIMITATIONS: None. PROCEDURE: The procedure, risks, benefits, and alternatives were discussed with the patient and the patient's family who then gave written consent. The lower quadrant was then marked utilizing sonogr aphic guidance and a time-out was performed to document correct marking verification. The area around the selected percutaneous access site was then prepped and draped with 2% chlorhexidi ne utilizing standard sterile technique. After that, the selected access site was infiltrated with 5 ml of 1% lidocaine. A 6 German Jlwh-R-Vciliuwv catheter was then introduced into the fluid-filled p eritoneal cavity and the fluid was aspirated. After the fluid was aspirated, the catheter was removed and the entry site was covered with a sterile bandage. No immediate complications were noted. Volume of Fluid: 2350 mL. Quality of the Fluid: Straw-colored. Was the fluid collected for analysis? No. Images acquired during the procedure were submitted to PACS. The patient tolerated the procedure with local anesthesia. At the end of the procedure the patient's condition was unchanged from the preprocedural baseline. Documentation of [id number] time the proceduralist spent monitoring the patient: 15 minutes. IMPRESSION: Successful ultrasound-guided paracentesis. COMMENT: Patient medication list reviewed: Yes- Quality ID# [id number]:Eligible professional attests to doc umenting in the medical record they obtained, updated, or reviewed the patient's current medications. TECHNICAL DOCUMENTATION: JOB ID: [id number] 2010 [email or web address]- All Rights Reserved Reading location - IP/workstation name: [email or web address]
--- NOTE | 2020-04-11 16:09 | PDOC PROGRESS REPORT ---
Subjective Date:: 04/11/20 Subjective:: No adverse events overnight. No new complaints. He got another paracentesis to day with approximately 2300 mL of fluid removed. Reason For Visit: SEPSIS ,PNEMONIA Physical Exam Vital Signs: Temp Pulse Resp BP Pulse Ox 98.2 F 91 18 129/74 H 96 04/11/20 10:00 04/11/20 07:53 04/11/20 07:53 04/11/20 07:53 04/11/20 07:53 Intake & Output 04/10/20 04/11/20 04/12/20 06:59 06:59 06:59 Intake Total 2050 3720 650 Output Total 925 100 Balance 1125 3620 650 Weight 88.8 kg 90.2 kg General appearance: PRESENT: no acute distress, cooperative, disheveled Eye exam: PRESENT: scleral icterus Respiratory exam: PRESENT: clear to auscultation maddy, symmetrical, unlabored. ABSENT: accessory muscle use, chest wall tenderness, crackles, prolonged expiratory phas, rhonchi, tachypnea, wheezes Cardiovascular exam: PRESENT: RRR, +S1, +S2 Pulses: PRESENT: normal carotid pulses Vascular exam: PRESENT: normal capillary refill GI/Abdominal exam: PRESENT: normal bowel sounds, soft. ABSENT: distended, guarding, rebound, tenderness Extremities exam: PRESENT: pedal edema, +2 edema. ABSENT: clubbing Musculoskeletal exam: ABSENT: deformity Neurological exam: PRESENT: awake, oriented to person, oriented to place, oriented to situation Psychiatric exam: PRESENT: flat affect Skin exam: PRESENT: dry, warm Results Laboratory Results: 04/07/20 08:05 04/11/20 05:56 04/11/20 05:56 Sodium 136.1 L Potassium 4.0 Chloride 103 Carbon Dioxide 29 Anion Gap 4 L BUN 11 Creatinine 0.65 Est GFR ( Amer) > 60 Glucose 114 H Calcium 9.0 Total Bilirubin 4.1 H AST 75 H Alkaline Phosphatase 247 H Total Protein 6.3 Albumin 2.6 L 04/07/20 10:51 Ascities Fluid Gram Stain - Final 04/07/20 10:51 Ascities Fluid Body Fluid Culture - Final NO AEROBIC OR ANAEROBIC ORGANISMS RECOVERED 04/05/20 21:30 Blood Blood Culture - Final NO GROWTH IN 5 DAYS 04/05/20 18:45 Blood Blood Culture - Final NO GROWTH IN 5 DAYS 04/05/20 18:45 Troponin I < 0.012 Impressions: Abdomen/Pelvis CT 04/05/20 00:00 IMPRESSION: 1. Developing bilateral pleural effusions, ascites and anasarca consistent with some volume overload and/or third spacing. 2. Improvement in the prior colitis with residual right-sided colitis most likely an infectious colitis but please correlate clinically. Chest X-Ray 04/05/20 17:42 IMPRESSION: 1. Since the prior study dated 03/29/2020, new interval finding of bibasilar opacities and some consolidation in the left lower lung zone may be on the basis of pneumonia. Trace bilateral pleural effusions. Is there any underlying history of COVID-19 disease? 2. Cardiomegaly since the prior study. Slight pulmonary vascular congestion. Chest/Abdomen CTA 04/06/20 00:00 IMPRESSION: 1. LIMITED STUDY. NO LARGE PULMONARY EMBOLI VISUALIZED. 2. BILATERAL PLEURAL EFFUSIONS AND LOWER LOBE CONSOLIDATIONS, LEFT GREATER THAN RIGHT. 3. ASCITES. Abdomen Ultrasound 04/10/20 00:00 IMPRESSION: Significant ascites throughout the abdomen as above. Most notable in the right upper quadrant. Paracentesis Ultrasound 04/11/20 00:00 IMPRESSION: Successful ultrasound-guided paracentesis. Assessment and Plan - Diagnosis (1) Alcoholic hepatitis with ascites Is this a current diagnosis for this admission?: Yes (2) Elevated bilirubin Is this a current diagnosis for this admission?: Yes (3) Left lower lobe pneumonia Qualifiers: Pneumonia type: due to unspecified organism Qualified Code(s): J18.9 - P neumonia, unspecified organism Is this a current diagnosis for this admission?: Yes (4) Alcohol dependence Qualifiers: Substance use status: other alcohol-induced disorder Qualified Code(s): F10.288 - Alcohol dependence with other alcohol-induced disorder Is this a current diagnosis for this admission?: Yes (5) Hyponatremia Is this a current diagnosis for this admission?: Yes (6) Tobacco dependence Is this a current diagnosis for this admission?: Yes - Plan Summary Summary: He was admitted with clinical signs of pneumonia, being treated with broad- spectrum antibiotics considering recent hospitalization. Will likely discontinue antibiotics tomorrow CTA was negative for PE. He has been started on diuretics to reduce rate of fluid reaccumulation had repeat paracentesis today as noted above. I think some of his reaccumulation was due to the fact that he was still on prednisone for several days after his initial paracentesis, and it has been determined that the prednisone he was on was not effective for him for reasons that have been previously noted. His bilirubin and INR have both come down, I think the Solu-Medrol is having an effect. We will continue this for a few more days with the hopes that we can discharge him home on prednisolone. When he tried to get prednisolone as an outpatient it was very expensive in tablet form, but I think that the liquid form is far less expensive and so we will likely send him home on that. - Time Time Spent with patient: 15-24 minutes Anticipated Discharge Disposition: Home, Self Care Anticipated Discharge Timeframe: within 72 hours
[2020-04-11] MEDS: AZITHROMYCIN 500 MG in DEXTROSE 5%-WATER 250 ML IV SCH (22:28)
[2020-04-12] MEDS: VANCOMYCIN HCL 1,250 MG in DEXTROSE 5%-WATER 250 ML IV SCH ×3 (05:45→17:38)
[2020-04-12] MEDS: PANTOPRAZOLE SODIUM 40 MG TABLET.DR PO SCH ×2 (05:45→17:38)
[2020-04-12 06:36] LABS: PROTHROMBIN TIME 21.9 SEC (11.4-15.4)
[2020-04-12] MEDS: LIPASE/PROTEASE/AMYLASE 1 CAP CAPSULE.DR PO SCH ×2 (08:34→17:38)
[2020-04-12 08:54] LABS: ALBUMIN 2.6 g/dL (3.5-5.0); ALKALINE PHOSPHATASE 215 U/L (38-126); ASPARTATE AMINO TRANSFERASE 74 U/L (17-59); CALCIUM 8.9 mg/dL (8.4-10.2); GLUCOSE 101 mg/dL (75-110); POTASSIUM 4.2 mmol/L (3.6-5.0)
[2020-04-12 08:55] LABS: BLOOD UREA NITROGEN 11 mg/dL (7-20)
[2020-04-12 08:59] LABS: CARBON DIOXIDE 30 mmol/L (22-30); CHLORIDE 104 mmol/L (98-107)
[2020-04-12] MEDS: THIAMINE HCL 100 MG TABLET PO SCH (09:21)
[2020-04-12] MEDS: FUROSEMIDE 40 MG TABLET PO SCH (09:21)
[2020-04-12] MEDS: METHYLPREDNISOLONE INJ 40 MG/1 ML SDV IV SCH ×2 (09:21→22:17)
[2020-04-12] MEDS: SPIRONOLACTONE 25 MG TABLET PO SCH (09:21)
[2020-04-12] MEDS: MULTIVITAMIN TABLET PO SCH (09:21)
[2020-04-12] MEDS: CEFEPIME HCL 2 GM in DEXTROSE 5%-WATER 50 ML IV SCH ×2 (09:24→22:16)
[2020-04-12 09:28] LABS: BILIRUBIN,DIRECT 1.3 mg/dL (0.0-0.4); BILIRUBIN,TOTAL 4.9 mg/dL (0.2-1.3)
[2020-04-12 09:34] LABS: ANION GAP 2 (5-19)
--- NOTE | 2020-04-12 18:48 | PDOC PROGRESS REPORT ---
Subjective Date:: 04/12/20 Subjective:: No adverse events overnight. He said that his paracentesis site has been leakin g again today. He has saturated several gauze dressings. Reason For Visit: SEPSIS ,PNEMONIA Physical Exam Vital Signs: Temp Pulse Resp BP Pulse Ox 98.3 F 90 18 130/68 H 99 04/12/20 12:00 04/12/20 12:00 04/12/20 12:00 04/12/20 12:00 04/12/20 12:00 Intake & Output 04/11/20 04/12/20 04/13/20 06:59 06:59 06:59 Intake Total 3720 2300 860 Output Total 100 600 Balance 3620 1700 860 Weight 90.2 kg 90.2 kg 90.2 kg General appearance: PRESENT: no acute distress, cooperative, disheveled Eye exam: PRESENT: scleral icterus Respiratory exam: PRESENT: clear to auscultation maddy, symmetrical, unlabored. ABSENT: accessory muscle use, chest wall tenderness, crackles, prolonged expiratory phas, rhonchi, tachypnea, wheezes Cardiovascular exam: PRESENT: RRR, +S1, +S2 Pulses: PRESENT: normal carotid pulses Vascular exam: PRESENT: normal capillary refill GI/Abdominal exam: PRESENT: normal bowel sounds, soft, distended, leakage of fluid from paracentesis site. ABSENT: guarding, rebound, tenderness Extremities exam: PRESENT: pedal edema, +2 edema. ABSENT: clubbing Musculoskeletal exam: ABSENT: deformity Neurological exam: PRESENT: awake, oriented to person, oriented to place, oriented to situation Psychiatric exam: PRESENT: flat affect Skin exam: PRESENT: dry, warm Results Laboratory Results: 04/07/20 08:05 04/12/20 07:52 04/12/20 04/12/20 05:51 07:52 Sodium Cancelled 135.9 L Potassium Cancelled 4.2 Chloride Cancelled 104 Carbon Dioxide Cancelled 30 Anion Gap Cancelled 2 L BUN Cancelled 11 Creatinine Cancelled 0.59 Est GFR ( Amer) Cancelled > 60 Est GFR (Non-Af Amer) Cancelled Glucose Cancelled 101 Calcium Cancelled 8.9 Total Bilirubin Cancelled 4.9 H AST Cancelled 74 H Alkaline Phosphatase Cancelled 215 H Total Protein Cancelled 6.0 L Albumin Cancelled 2.6 L 04/05/20 18:45 Troponin I < 0.012 Impressions: Abdomen/Pelvis CT 04/05/20 00:00 IMPRESSION: 1. Developing bilateral pleural effusions, ascites and anasarca consistent with some volume overload and/or third spacing. 2. Improvement in the prior colitis with residual right-sided colitis most likely an infectious colitis but please correlate clinically. Chest X-Ray 04/05/20 17:42 IMPRESSION: 1. Since the prior study dated 03/29/2020, new interval finding of bibasilar opacities and some consolidation in the left lower lung zone may be on the basis of pneumonia. Trace bilateral pleural effusions. Is there any underlying history of COVID-19 disease? 2. Cardiomegaly since the prior study. Slight pulmonary vascular congestion. Chest/Abdomen CTA 04/06/20 00:00 IMPRESSION: 1. LIMITED STUDY. NO LARGE PULMONARY EMBOLI VISUALIZED. 2. BILATERAL PLEURAL EFFUSIONS AND LOWER LOBE CONSOLIDATIONS, LEFT GREATER THAN RIGHT. 3. ASCITES. Abdomen Ultrasound 04/10/20 00:00 IMPRESSION: Significant ascites throughout the abdomen as above. Most notable in the right upper quadrant. Paracentesis Ultrasound 04/11/20 00:00 IMPRESSION: Successful ultrasound-guided paracentesis. Assessment and Plan - Diagnosis (1) Alcoholic hepatitis with ascites Is this a current diagnosis for this admission?: Yes (2) Elevated bilirubin Is this a current diagnosis for this admission?: Yes (3) Left lower lobe pneumonia Qualifiers: Pneumonia type: due to unspecified organism Qualified Code(s): J18.9 - Pneumonia, unspecified organism Is this a current diagnosis for this admission?: Yes (4) Alcohol dependence Qualifiers: Substance use status: other alcohol-induced disorder Qualified Code(s): F10.288 - Alcohol dependence with other alcohol-induced disorder Is this a current diagnosis for this admission?: Yes (5) Hyponatremia Is this a current diagnosis for this admission?: Yes (6) Tobacco dependence Is this a current diagnosis for this admission?: Yes - Plan Summary Summary: He was admitted with clinical signs of pneumonia, completed treatment for hospital-acquired pneumonia which is now resolved. CTA was negative for PE. He has been started on diuretics to reduce rate of fluid reaccumulation had repeat paracentesis. I think some of his reaccumulation was due to the fact that he was still on prednisone for several days after his initial paracentesis, and it has been determined that the prednisone he was on was not effective for him for reasons that have been previously noted. His bilirubin and INR have both come down, I think the Solu-Medrol is having some effect. Today he has had some reaccumulation of fluid, sufficient to call leakage from the paracentesis site. His meld score is 20, child Jara score is 12, Bonacini discriminant score is 7. Evidence of portal hypertension on ultrasound. I spoke with Dr. Petit, a software test engineer at [facility], and he believes the patient should be transferred. I spoke with Dr. Shah from their medicine service, and she agreed to accept the patient in transfer. Dr. Petit did not recommend any other medication adjustments at this time. - Time Time Spent with patient: 25-34 minutes Anticipated Discharge Disposition: Tertiary Anticipated Discharge Timeframe: when bed available
--- NOTE | 2020-04-12 19:06 | PDOC TRANSFER SUMMARY ---
General Admission Date/PCP: 04/05/20 23:31 Admission Date: 04/05/20 Accepting Facility: [facility] Accepting Physician: Dr. Shah Resuscitation Status: Full Code - Transfer Diagnosis (1) Alcoholic hepatitis with ascites Is this a current diagnosis for this admission?: Yes (2) Elevated bilirubin Is this a current diagnosis for this admission?: Yes (3) Left lower lobe pneumonia Is this a current diagnosis for this admission?: Yes (4) Alcohol dependence Is this a current diagnosis for this admission?: Yes (5) Hyponatremia Is this a current diagnosis for this admission?: Yes (6) Tobacco dependence Is this a current diagnosis for this admission?: Yes - Transfer Medications Home Medications: No Home Medications 04/06/20 Transfer Medications: Current Medications Acetaminophen (Acetaminophen 325 Mg Tablet) 650 mg PO Q4HP PRN PRN Reason: temperture or pain Stop: 05/06/20 01:02 Last Admin: 04/08/20 18:29 Dose: 650 mg Documented by: Lipase/Protease/Amylase (Lipase/Protease/Amylase 1 Cap Capsule.) 1 cap PO BIDACBS [facility]MAN Stop: 05/06/20 07:59 Last Admin: 04/12/20 17:38 Dose: 1 cap Documented by: Furosemide (Furosemide 40 Mg Tablet) 40 mg PO DAILY [facility] Stop: 05/06/20 16:59 Last Admin: 04/12/20 09:21 Dose: 40 mg Documented by: Azithromycin 500 mg/ Dextrose 250 mls @ 250 mls/hr IV QHS [facility]MAN Stop: 04/13/20 21:59 Last Infusion: 04/11/20 23:37 Dose: Infused Documented by: Cefepime HCl 2 gm/ Dextrose 50 mls @ 100 mls/hr IV Q12 [facility] Stop: 04/13/20 09:59 Last Admin: 04/12/20 09:24 Dose: 100 mls/hr Documented by: Vancomycin HCl 1,250 mg/ (Dextrose) 250 mls @ 166.667 mls/hr IV Q6 [facility]MAN Stop: 04/14/20 17:59 Last Admin: 04/12/20 17:38 Dose: 166.67 mls/hr, 166.67 mls/hr Documented by: Methylprednisolone Sodium Succinate (Methylprednisolone Inj 40 Mg/1 Ml Sdv) 40 mg IV Q12 [facility]MAN Stop: 05/08/20 21:59 Last Admin: 04/12/20 09:21 Dose: 40 mg Documented by: Morphine Sulfate (Morphine Sulfate 10 Mg/Ml Inj) 1 mg IV Q4HP PRN PRN Reason: FOR PAIN SCALE 3-5 Stop: 04/13/20 15:37 Multivitamins (Multivitamin Tablet) 1 tab PO DAILY [facility] Stop: 05/06/20 09:59 Last Admin: 04/12/20 09:21 Dose: 1 tab Documented by: Pantoprazole Sodium (Pantoprazole Sodium 40 Mg Tablet.) 40 mg PO BID@0600,1700 [facility] Stop: 05/06/20 05:59 Last Admin: 04/12/20 17:38 Dose: 40 mg Documented by: Sodium Chloride (Normal Saline Flush 2.5 Ml Disp.Syrin) 2.5 ml IV Q8 [facility] Stop: 05/06/20 05:59 Last Admin: 04/12/20 14:01 Dose: Not Given Documented by: Spironolactone (Spironolactone 25 Mg Tablet) 100 mg PO DAILY [facility] Stop: 05/06/20 16:59 Last Admin: 04/12/20 09:21 Dose: 100 mg Documented by: Thiamine HCl (Thiamine Hcl 100 Mg Tablet) 100 mg PO DAILY [facility] Stop: 05/06/20 09:59 Last Admin: 04/12/20 09:21 Dose: 100 mg Documented by: - Allergies Allergies/Adverse Reactions: No Known Allergies Allergy (Verified 04/05/20 17:35) Hospital Course Hospital Course: VASU FELICIANO is a 25 year old male This unfortunate young man is suffering from alcoholic hepatitis. He was admitted to the hospital in March 29 and discharged on April 04. CT scan of the abdomen showed possible right-sided colitis. He underwent colonoscopy which was fairly unremarkable. EGD was done which was unremarkable as well. He was started on 40 mg prednisone daily for alcoholic hepatitis on 01 April. He had some ascites and some edema as well. Eventually he was discharged home in stable condition on 04 April. He was doing well initially but next day he st arted developing left-sided lateral chest pain and left upper abdominal pain. He thought he may have a little bit more swelling. He was very weak. He developed shortness of breath. He is not sure about having fever at home or not. In the emergency department he had sinus tachycardia, stable blood pressure. His oxygen saturation was between 95 to 100%. He was started on cefepime and vancomycin for pneumonia. When I arrived to see him he appeared to be weak, he was not in any respiratory distress. He did not have significant pain. When he first presented on 29 March 2020, AST was 189, ALT was 74, bilirubin was 7.7, INR was 3.04. Today, his numbers are as follows: AST 74, ALT 111, bilirubin 4.9, INR 1.9. He had been put on prednisone because he could not afford prednisolone. He had only been on it for a few days when he was readmitted, so it was decided to give it a few more days to see if it was going to work. After 7 total days of prednisone, his numbers had not improved, and it was felt that he may not be able to convert it to the active metabolite, so he was switched to Solu-Medrol. He has been on Solu-Medrol for about 5 days. After a couple of days, he initially had some improvement, and his transaminases and bilirubin and INR all trended down, but have since begun to trend back up to the numbers above. He had paracentesis when he was admitted, approximately 2500 mL were drawn. 6 days later, he had reaccumulation of fluid with a tight distended abdomen, and so paracentesis was performed again. Approximately 2300 mL were drawn. It probably would have been more but he had been having some leakage from the previous paracentesis site. At the time of this dictation, the second paracentesis was done yesterday. Today, his belly was still distended, not to the previous seen degrees, but more distended than he was after his paracentesis. He continued to have leakage of fluid from the paracentesis site. He has been on Lasix and Aldactone for 4 days. He has a history of heavy alcohol consumption. He has history of methamphetamine usage but apparently has not used that in a few years, according to the patient. When he presented here on 05 April 2020, having been discharged the day before, his alcohol level was undetectable, and he has had no evidence of any alcohol withdrawal. The date of his last drink is unknown at this time. His MELD score using today's numbers is 20, Child Jara score is 12, Bonacini discriminant score is 7. He has been noted to have portal hypertension on ultrasound. He has been noted to have an enlarged liver consistent with medical liver disease such as hepatic steatosis, with some border irregularities noted on CT. He has normal renal function. His platelets have always been consistently low, usually right around 100,000. His blood pressures have been normal with a normal mean arterial pressure. He does have hepatomegaly, gynecomastia, jaundice, ascites, and fetor hepaticus. I discussed the case with Dr. Petit a safe deposit box rental clerk at [facility], who recommended transferring the patient to his facility in [place]. I spoke with Dr. Shah from the medicine service, who agreed to accept the patient onto their service once a bed is available. Patient will continue his current regimen of Solu-Medrol, Lasix, and Aldactone. Physical Exam Vital Signs: Temp Pulse Resp BP Pulse Ox 98.3 F 90 18 130/68 H 99 04/12/20 12:00 04/12/20 12:00 04/12/20 12:00 04/12/20 12:00 04/12/20 12:00 Intake & Output 04/11/20 04/12/20 04/13/20 06:59 06:59 06:59 Intake Total 3720 2300 860 Output Total 100 600 Balance 3620 1700 860 Weight 90.2 kg 90.2 kg 90.2 kg General appearance: PRESENT: no acute distress, cooperative, disheveled Eye exam: PRESENT: scleral icterus Respiratory exam: PRESENT: clear to auscultation maddy, symmetrical, unlabored. ABSENT: accessory muscle use, chest wall tenderness, crackles, prolonged expiratory phas, rhonchi, tachypnea, wheezes Cardiovascular exam: PRESENT: RRR, +S1, +S2 Pulses: PRESENT: normal carotid pulses Vascular exam: PRESENT: normal capillary refill GI/Abdominal exam: PRESENT: normal bowel sounds, soft, distended, leakage of fluid from paracentesis site. ABSENT: guarding, rebound, tenderness Extremities exam: PRESENT: pedal edema, +2 edema. ABSENT: clubbing Musculoskeletal exam: ABSENT: deformity Neurological exam: PRESENT: awake, oriented to person, oriented to place, oriented to situation Psychiatric exam: PRESENT: flat affect Skin exam: PRESENT: dry, warm, jaundice Results Laboratory Results: 04/07/20 08:05 04/12/20 07:52 04/12/20 04/12/20 05:51 07:52 Sodium Cancelled 135.9 L Potassium Cancelled 4.2 Chloride Cancelled 104 Carbon Dioxide Cancelled 30 Anion Gap Cancelled 2 L BUN Cancelled 11 Creatinine Cancelled 0.59 Est GFR ( Amer) Cancelled > 60 Est GFR (Non-Af Amer) Cancelled Glucose Cancelled 101 Calcium Cancelled 8.9 Total Bilirubin Cancelled 4.9 H AST Cancelled 74 H Alkaline Phosphatase Cancelled 215 H Total Protein Cancelled 6.0 L Albumin Cancelled 2.6 L 04/05/20 18:45 Troponin I < 0.012 Impressions: Abdomen/Pelvis CT 04/05/20 00:00 IMPRESSION: 1. Developing bilateral pleural effusions, ascites and anasarca consistent with some volume overload and/or third spacing. 2. Improvement in the prior colitis with residual right-sided colitis most likely an infectious colitis but please correlate clinically. Chest X-Ray 04/05/20 17:42 IMPRESSION: 1. Since the prior study dated 03/29/2020, new interval finding of bibasilar opacities and some consolidation in the left lower lung zone may be on the basis of pneumonia. Trace bilateral pleural effusions. Is there any underlying history of COVID-19 disease? 2. Cardiomegaly since the prior study. Slight pulmonary vascular congestion. Chest/Abdomen CTA 04/06/20 00:00 IMPRESSION: 1. LIMITED STUDY. NO LARGE PULMONARY EMBOLI VISUALIZED. 2. BILATERAL PLEURAL EFFUSIONS AND LOWER LOBE CONSOLIDATIONS, LEFT GREATER THAN RIGHT. 3. ASCITES. Abdomen Ultrasound 04/10/20 00:00 IMPRESSION: Significant ascites throughout the abdomen as above. Most notable in the right upper quadrant. Paracentesis Ultrasound 04/11/20 00:00 IMPRESSION: Successful ultrasound-guided paracentesis. Plan Time Spent: Greater than 30 Minutes
[2020-04-12] MEDS: AZITHROMYCIN 500 MG in DEXTROSE 5%-WATER 250 ML IV SCH (22:17)
[2020-04-13] MEDS: VANCOMYCIN HCL 1,250 MG in DEXTROSE 5%-WATER 250 ML IV SCH ×3 (01:10→11:35)
[2020-04-13] MEDS: PANTOPRAZOLE SODIUM 40 MG TABLET.DR PO SCH (06:34)
[2020-04-13] MEDS: LIPASE/PROTEASE/AMYLASE 1 CAP CAPSULE.DR PO SCH (07:58)
[2020-04-13 08:05] LABS: ALBUMIN 2.7 g/dL (3.5-5.0); ALKALINE PHOSPHATASE 202 U/L (38-126); ASPARTATE AMINO TRANSFERASE 69 U/L (17-59); BILIRUBIN,DIRECT 1.6 mg/dL (0.0-0.4); BILIRUBIN,TOTAL 5.3 mg/dL (0.2-1.3); BLOOD UREA NITROGEN 16 mg/dL (7-20); CALCIUM 8.9 mg/dL (8.4-10.2); GLUCOSE 96 mg/dL (75-110); POTASSIUM 4.5 mmol/L (3.6-5.0); TOTAL PROTEIN 6.2 g/dL (6.3-8.2); VANCOMYCIN,TROUGH 21.6 ug/mL (5.0-20.0)
[2020-04-13 08:10] LABS: CARBON DIOXIDE 33 mmol/L (22-30); CHLORIDE 102 mmol/L (98-107)
[2020-04-13 08:11] LABS: ANION GAP 4 (5-19)
[2020-04-13 08:55] LABS: ABSOLUTE LYMPHOCYTES (AUTO) 1.1 10^3/uL (0.5-4.7); ABSOLUTE MONOCYTES (AUTO) 0.7 10^3/uL (0.1-1.4); ABSOLUTE NEUT (AUTO) 7.9 10^3/uL (1.7-8.2); BASOPHILS % (AUTO) 0.2 % (0-2); HEMATOCRIT 25.7 % (37.9-51.0); HEMOGLOBIN 8.8 g/dL (13.5-17.0); LYMPHOCYTES % (AUTO) 11.4 % (13-45); MEAN CORPUSCULAR HEMOGLOBIN 37.8 pg (27.0-33.4); MEAN CORPUSCULAR HGB CONC 34.4 g/dL (32.0-36.0); MEAN CORPUSCULAR VOLUME 110 fl (80-97); MONOCYTES % (AUTO) 7.5 % (3-13); RED BLOOD COUNT 2.34 10^6/uL (4.35-5.55); RED CELL DISTRIBUTION WIDTH 16.8 % (11.5-14.0); SEGMENTED NEUTROPHILS % (AUTO) 80.9 % (42-78); TOTAL CELLS COUNTED % (AUTO) 100 %; WHITE BLOOD COUNT 9.8 10^3/uL (4.0-10.5)
[2020-04-13 09:14] LABS: PLATELET COUNT 108 10^3/uL (150-450)
[2020-04-13] MEDS: MULTIVITAMIN TABLET PO SCH (09:50)
[2020-04-13] MEDS: THIAMINE HCL 100 MG TABLET PO SCH (09:50)
[2020-04-13] MEDS: METHYLPREDNISOLONE INJ 40 MG/1 ML SDV IV SCH (09:50)
[2020-04-13] MEDS: FUROSEMIDE 40 MG TABLET PO SCH (09:51)
[2020-04-13] MEDS: SPIRONOLACTONE 25 MG TABLET PO SCH (09:51)
[2020-04-13 13:39] VITALS: BP 129/67
== END 2020-04-13 14:15 | disposition short-term general hospital (02) | DRG 432 ==
LOC: ER 17:10 → EH 23:31 → INTOOBSV 23:31 → OBSVTOIN 23:31 → 4S 04-06 01:56
PROVIDERS: ADMIT Internal Medicine; ATTEND Internal Medicine
PROC: 0W9G3ZZ Drainage of Peritoneal Cavity, Percutaneous Approach (ICD-10-PCS; principal; 2020-04-07)
PROC: 0W9G3ZZ Drainage of Peritoneal Cavity, Percutaneous Approach (ICD-10-PCS; 2020-04-11)
DX: K70.11 Alcoholic hepatitis with ascites (principal); J18.9 Pneumonia, unspecified organism; E87.1 Hypo-osmolality and hyponatremia; F10.288 Alcohol dependence with other alcohol-induced disorder; K76.6 Portal hypertension; K21.9 Gastro-esophageal reflux disease without esophagitis; F17.210 Nicotine dependence, cigarettes, uncomplicated; K86.89 Other specified diseases of pancreas; Z20.828 Contact with and (suspected) exposure to other viral communicable diseases; N62 Hypertrophy of breast
CPT/HCPCS: 36415; 49083; 71045; 71275; 74177; 76705; 80053; 80202; 80307; 81001; 81002; 82140; 83605; 83690; 83735; 83935; 84100; 84300; 84484; 85025; 85379; 85610; 85730; 87040; 87070; 87075; 87205; 89050; 93005; 93010; 96361; 96365; 96375; 99285; 0241U; C9803; J0456; J0692; J2270; J2405; J2920; J3370; J3490; J7030; J7060; J7512; P9047

== ENCOUNTER → 2020-04-27 | Outpatient (CLI) | payer OTHER ==
[2020-04-27 10:21] LABS: HEMATOCRIT 31.3 % (37.9-51.0); HEMOGLOBIN 10.9 g/dL (13.5-17.0); MEAN CORPUSCULAR HEMOGLOBIN 36.9 pg (27.0-33.4); MEAN CORPUSCULAR HGB CONC 34.8 g/dL (32.0-36.0); RED BLOOD COUNT 2.95 10^6/uL (4.35-5.55); RED CELL DISTRIBUTION WIDTH 15.5 % (11.5-14.0); WHITE BLOOD COUNT 9.3 10^3/uL (4.0-10.5)
[2020-04-27 10:40] LABS: INTERNATIONAL RATION (INR) 1.45; PROTHROMBIN TIME 17.8 SEC (11.4-15.4)
[2020-04-27 10:44] LABS: ALBUMIN 3.6 g/dL (3.5-5.0); ALKALINE PHOSPHATASE 244 U/L (38-126); ANION GAP 5 (5-19); ASPARTATE AMINO TRANSFERASE 144 U/L (17-59); BILIRUBIN,DIRECT 1.2 mg/dL (0.0-0.4); BILIRUBIN,TOTAL 5.3 mg/dL (0.2-1.3); BLOOD UREA NITROGEN 13 mg/dL (7-20); CALCIUM 9.2 mg/dL (8.4-10.2); CARBON DIOXIDE 28 mmol/L (22-30); CHLORIDE 102 mmol/L (98-107); GLUCOSE 84 mg/dL (75-110); PHOSPHORUS 3.4 mg/dL (2.5-4.5); POTASSIUM 4.9 mmol/L (3.6-5.0); TOTAL PROTEIN 7.5 g/dL (6.3-8.2)
[2020-04-27 11:13] LABS: MEAN CORPUSCULAR VOLUME 106 fl (80-97); PLATELET COUNT 108 10^3/uL (150-450)
== END ==
LOC: OD 09:27
PROVIDERS: ATTEND Internal Medicine Gastroenterology
DX: K70.31 Alcoholic cirrhosis of liver with ascites (principal)
CPT/HCPCS: 36415; 80048; 80076; 83735; 84100; 85027; 85610

== ENCOUNTER → 2020-05-11 | Outpatient (CLI) | payer OTHER ==
[2020-05-11 10:12] LABS: HEMOGLOBIN 11.8 g/dL (13.5-17.0); MEAN CORPUSCULAR HGB CONC 34.8 g/dL (32.0-36.0); PLATELET COUNT 159 10^3/uL (150-450); RED BLOOD COUNT 3.37 10^6/uL (4.35-5.55); RED CELL DISTRIBUTION WIDTH 14.6 % (11.5-14.0); WHITE BLOOD COUNT 7.3 10^3/uL (4.0-10.5)
[2020-05-11 10:17] LABS: INTERNATIONAL RATION (INR) 1.38; PROTHROMBIN TIME 17.2 SEC (11.4-15.4)
[2020-05-11 10:20] LABS: MEAN CORPUSCULAR VOLUME 101 fl (80-97)
[2020-05-11 10:40] LABS: ALBUMIN 3.5 g/dL (3.5-5.0); ALKALINE PHOSPHATASE 207 U/L (38-126); ANION GAP 6 (5-19); ASPARTATE AMINO TRANSFERASE 77 U/L (17-59); BILIRUBIN,DIRECT 1.1 mg/dL (0.0-0.4); BILIRUBIN,TOTAL 3.6 mg/dL (0.2-1.3); BLOOD UREA NITROGEN 12 mg/dL (7-20); CALCIUM 9.5 mg/dL (8.4-10.2); CARBON DIOXIDE 27 mmol/L (22-30); CHLORIDE 103 mmol/L (98-107); GLUCOSE 106 mg/dL (75-110); POTASSIUM 4.2 mmol/L (3.6-5.0)
== END ==
LOC: OD 08:57
PROVIDERS: ATTEND Internal Medicine Gastroenterology
DX: K74.60 Unspecified cirrhosis of liver (principal)
CPT/HCPCS: 36415; 80053; 85027; 85610